=== PATIENT | male | born 1945 | race Caucasian/White ===

== ENCOUNTER 2017-04-02 11:46 | Inpatient (IN) ==
[2017-04-02 15:01] VITALS: BMI 24.2
[2017-04-02] MEDS ORDERED: ACETAMINOPHEN 650 MG SUPPOSITORY PR PRN (15:52)
[2017-04-02] MEDS ORDERED: WARFARIN 2 MG TABLET PO SCH (17:00)
[2017-04-02] MEDS: CEFTRIAXONE 2 GM in NS 100 ML IV SCH (18:22)
[2017-04-02] MEDS: MIDODRINE 10 MG TABLET PO SCH (18:23)
[2017-04-02] MEDS: SIMVASTATIN 20 MG TABLET PO SCH (21:10)
[2017-04-02] MEDS: BuPROPion IR 75 MG TABLET PO SCH (21:10)
[2017-04-02] MEDS: DOCUSATE SODIUM 100 MG CAPSULE PO SCH (21:10)
[2017-04-02] MEDS: CITALOPRAM 20 MG TABLET PO SCH (21:10)
[2017-04-02] MEDS: POLYETHYL GLYCOL 3350 17gm PACKET PO SCH (21:11)
[2017-04-03] MEDS ORDERED: FUROSEMIDE 20 MG TABLET PO SCH (09:00)
[2017-04-03] MEDS ORDERED: CEFTRIAXONE 2 GM INJECTION IV SCH (09:00)
[2017-04-03] MEDS: DOCUSATE SODIUM 100 MG CAPSULE PO SCH ×2 (09:02→22:25)
[2017-04-03] MEDS: GLYBURIDE 2.5 MG TABLET PO SCH (09:02)
[2017-04-03] MEDS: MIDODRINE 10 MG TABLET PO SCH ×3 (09:03→17:46)
[2017-04-03] MEDS: BuPROPion IR 75 MG TABLET PO SCH ×2 (09:03→22:24)
[2017-04-03] MEDS: NS 500 ML IV SCH ×2 (09:54→20:40)
--- NOTE | 2017-04-03 10:06 | Consult Note ---
<Polly Monroy V - Last Filed: 04/03/17 10:03> Consult Information - Data of Consult Patient: new to practice Consult date: 04/03/17 Requesting Physician: Gene Harrell MD Family Provider: Edith Castro MD-[facility] in [place] - Consult Narrative Reason for consult: medical management of recent sepsis, endocarditis History of present illness: Magdaleno is a pleasant 71 yr old male with a very complex recent medical history. He was admitted to [facility] on March 11, 2017 with shortness of breath and weakness. At that time he was found to have infectious endocarditis and septic shock caused by streptococcus bacteremia. An echocardiogram did reveal vegetation on the aortic and mitral valves, and he was diagnosed with a non-STEMI. On 03/14/17, patient underwent a aortic and mitral valve replacement under the care of Dr. Dami Mccoy. Post operatively he did have respiratory failure and was placed on the ventilator. This was managed by automotive service consultant, Dr. Nunes. Over the course of the next 2 weeks he has continued to improve. He has continued to have orthostasis and has been placed on Midodrine following a syncopal episode on 03/29. Both beta cassi and MANNY inhibitor have remained on hold. His other chronic disease have been managed and stabilized. Hemoglobin A1c while at [facility] was 6.5. His glipizide and metformin had been on hold, however, were resumed at time of discharge. Due to the severity of his illness and the extended time of his hospitalization , he developed significant general weakness. Prior to this illness. He does reside independently at home. Because of this debility, he was accepted to [facility] rehabilitation unit for ongoing rehabilitation and strengthening. He was followed by the following specialists while at [facility]- (03/11/17- 04/02/17) Dr. Cayetano Bautista (infectious disease) streptococcus bacteremia- continue on IV Rocephin through 05/10/17. Dr Robbin Marcus (mobile lounge driver ) regarding acute kidney injury on top of chronic kidney disease Dr Canelo Nunes (Heat Treat Technician) managed acute respiratory failure and ventilation [facility] Patient Stated Medical History Aortic/mitral valve endocarditis- 03/11/17 Paroxysmal atrial fibrillation with RVR during hospitalization Hx of Hypertension with current hypotension Diabetes CKD wtih recent IVIS History of kidney stones. GERD Depression. Pacemaker Surgical History: Pacemaker. 03/14/17- Bioprosthetic aortic valve replacement and mitral valve replacement Family History: Family history positive for cancer and melanoma - Social History Smoking status: Never smoker Substance use type: does not use Alcohol intake frequency: does not drink Current residence: Apartment/Private Home (independently in [place]) Social history: PCP Dr. Edith Castro at [facility], [place] Medications Home Medications Medication Instructions Recorded Confirmed Type Acetaminophen Supp [Tylenol Supp] 650 mg RECTALLY Q4HR PRN MDD 6 04/02/17 History supps/24 hours BuPROPion IR [Wellbutrin Ir] 75 mg PO BID 04/02/17 04/02/17 History Ceftriaxone [Rocephin] 2 gm IV DAILY 04/02/17 04/02/17 History Citalopram Hydrobromide [Celexa] 20 mg PO HS 04/02/17 04/02/17 History Docusate Sodium [Colace] 1 cap PO BID 04/02/17 04/02/17 History Furosemide [Lasix] 1 tab PO DAILY 04/02/17 04/02/17 History GlyBURIDE [Micronase] 2.5 mg PO DAILY 04/02/17 04/02/17 History Metformin Xr [Glucophage Xr] 1,000 mg PO BID 04/02/17 04/02/17 History Midodrine [Proamatine] 10 mg PO ,,04/02/17 04/02/17 History Polyethylene Glycol 3350 [Miralax] 17 gm PO HS 04/02/17 04/02/17 History Potassium Chloride ER Tab [K-Dur] 1 tab PO DAILY 04/02/17 04/02/17 History Simvastatin [Zocor] 20 mg PO HS 04/02/17 04/02/17 History Warfarin [Coumadin] 2 mg PO 1700 04/02/17 04/02/17 History Allergies Allergy/AdvReac Type Severity Reaction Status Date / Time No Known Allergies Allergy Verified 04/02/17 13:14 Exam Vital Signs: Temperature 97.6 F 04/02/17 23:49 Pulse Rate 99 04/02/17 23:49 Respiratory Rate 20 04/02/17 23:49 Blood Pressure 93/65 04/02/17 23:49 Pulse Oximetry 95 04/02/17 23:49 Oxygen Delivery Method Room Air Height/Weight/BMI: Height 1.83 m Weight 81 kg Body Mass Index 24.2 Results - Labs CBC & Chem 7: 04/03/17 04:29 04/03/17 04:29 Assessment and Plan (1) General weakness Current visit: Yes Status: Acute (2) Debility Current visit: Yes Status: Acute DVT Prophylaxis: Coumadin Resuscitation Status: Full Code Assessment and Plan: 04/03/17-initial consult Impression General weakness and debility secondary to severe illness. Status post aortic/mitral endocarditis with septic shock Status post aortic and mitral valve replacement Orthostatic hypotension Diabetes Previous hypertension Atrial fibrillation Chronic anticoagulation Pacemaker GERD Anxiety Plan Given orthostasis beta csasi and MANNY inhibitor have been on hold. Continue on Midodrine 10 mg TID. This morning will given him a 500ml bolus of NS given significant orthostasis 62 systolic while sitting on the edge of the bed. Upon recheck by myself blood pressure was 91 systolic. Discussed with nursing staff will have to do position changes slowly with patient. He does become significantly symptomatic, complaining of lightheadedness 1. Blood pressure does decrease. Given recent aortic and mitral valve endocarditis he will require 8 weeks total of antibiotic therapy. It is recommended that he continue on IV Rocephin daily through 05/10/17. Will require chronic anticoagulation on warfarin, INR ordered for now. Will place pharmacy consult for Coumadin managing. [id number] score is >3 , indicating he has a high risk for CVA Will monitor blood sugars routinely. Patient was placed back on metformin and glyburide at time of discharge from [facility]. Will need to monitor renal function carefully given recent acute kidney injury. Asked nursing staff to do Guzmán, bladder retraining. Hopeful to discontinue Guzmán catheter in the next 1-2 days. Check daily CBC and BMP to follow blood counts, renal function and electrolytes. Encourage work with PT and OT for ongoing strengthening. It is patient's goal to return independently at home Will discuss further orders and plan of care with attending, Dr. Leach. At time of discharge medical care is returned to Dr. Edith Castro at [facility]. Hospital Course Summary Disclaimer: The visit summary below is not to be considered part of the above Progress Note. Hospital Course: 04/03/17-initial consult Impression General weakness and debility secondary to severe illness. 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 Continue on Midodrine 10 mg TID. This morning will given him a 500ml bolus of NS given significant orthostasis 62 systolic while sitting on the edge of the bed. Upon recheck by myself blood pressure was 91 systolic. Discussed with nursing staff will have to do position changes slowly with patient. He does become significantly symptomatic, complaining of lightheadedness 1. Blood pressure does decrease. Given recent aortic and mitral valve endocarditis he will require 8 weeks total of antibiotic therapy. It is recommended that he continue on IV Rocephin daily through 05/10/17. Will require chronic anticoagulation on warfarin, INR ordered for now. Will place pharmacy consult for Coumadin managing. [id number] score is >3 , indicating he has a high risk for CVA Will monitor blood sugars routinely. Patient was placed back on metformin and glyburide at time of discharge from [facility]. Will need to monitor renal function carefully given recent acute kidney injury. Asked nursing staff to do Guzmán, bladder retraining. Hopeful to discontinue Guzmán catheter in the next 1-2 days. Check daily CBC and BMP to follow blood counts, renal function and electrolytes. Encourage work with PT and OT for ongoing strengthening. It is patient's goal to return independently at home Will discuss further orders and plan of care with attending, Dr. Leach. At time of discharge medical care is returned to Dr. Edith Castro at [facility]. Sepsis Assessment - Evaluation Sepsis screening result: No Definite Risk <Ana Leach - Last Filed: 04/03/17 20:29> Consult Information - Data of Consult Requesting Physician: Gene Harrell MD Primary Care Provider: Norah Pedroza MD Family Provider: Norah Pedroza MD [facility] Patient Stated Medical History Exam Vital Signs: Temperature 97.5 F 04/03/17 16:00 Pulse Rate 92 04/03/17 16:00 Respiratory Rate 20 04/03/17 16:00 Blood Pressure 89/67 04/03/17 16:00 Pulse Oximetry 95 04/03/17 16:00 Oxygen Delivery Method Room Air Height/Weight/BMI: Height 1.83 m Weight 81 kg Body Mass Index 24.2 Results - Labs CBC & Chem 7: 04/03/17 04:29 04/03/17 04:29 Assessment and Plan (1) General weakness Current visit: Yes Status: Acute (2) Debility Current visit: Yes Status: Acute Assessment and Plan: I have independently evaluated and examined this patient. I reviewed the chart, the patient's history, and the TUNNEL ELASTIC OPERATOR LOCKSTITCH/PA's documented findings as above. We discussed and formulated the assessment and plan as above with additions as below: Mr. Blackman was seen in the dining area with family members in attendance. Patient described excessive fatigue after working with therapy earlier today. He indicates being overwhelmed with recent events and his recovery needs. He denied dyspnea and reports his bowels have been working well. He expressed concern about passing out. He denies lower extremity edema and daughter confirmed that extremities have not been edematous recently. She reported that Lasix was added to his regimen yesterday because he had some fluid around his lungs but he's had no respiratory difficulty. Oxygen saturation 95% on room air, systolic blood pressure persistently under 100 today, most recent blood pressure 89/67 Generalized pallor, appears exhausted, soft spoken Conjunctiva clear, sclera anicteric; PICC right upper extremity-insertion site unremarkable Respirations nonlabored with diminished airflow throughout-breath sounds are clear Regular rhythm, S1-S2, low-grade tachycardia; no clicks appreciated Abdomen soft/nontender Lower extremities without edema, KISHORE hose on Moving extremities spontaneously, sensation intact, no tremor noted, motor tone normal Management of pleural fluid/congestive heart failure (daughter suggests ejection fraction of about 30% on last echo) in conjunction with orthostatic hypotension will be problematic. Given the absence of respiratory compromise and near syncope earlier today Lasix will be discontinued. I'll try to contact the patient's casting machine operator helper tomorrow to discuss further management plans. Baseline chest x-ray to be obtained in the morning. Hospital Course Summary Disclaimer: The visit summary below is not to be considered part of the above Progress Note.
--- NOTE | 2017-04-03 10:49 | IRU History & Physical Report ---
[facility] IRU Date: Chief complaint: PO Valvular replacement with weakness HPI: Mr. Blackman is a 71-year-old male has been admitted to the rehabilitation unit post valvular surgery in [place]. Both the aortic and mitral valves were replaced for infectious endocarditis and septic shock. Postoperatively, the patient had respiratory failure, was placed on a ventilator and managed by the inspector fabric. The next couple of weeks. He improved medically, but has had difficulty with orthostatic hypotension and generalized weakness. The r. Please refer jcarlos he's been admitted to our rehabilitation unit to increase his physical capability for going home. Please refer to Polly [facility] note which lists the specialists that have taken care of Mr. Blackman. He is to get IV Rocephin through 05/10/2017. Review of Systems Comprehensive ROS: completed and no additional positive findings except those as stated - Constitutional Constitutional: Present: as per HPI. Absent: fever(s) - Cardiovascular Cardiovascular: Present: as per HPI - Gastrointestinal Gastrointestinal: Absent: nausea - Genitourinary Genitourinary: Present: other - Musculoskeletal Musculoskeletal: Present: muscle weakness - Neurological Neurological: Present: weakness - Psychiatric Psychiatric: Absent: anxiety PFSH Patient Stated Medical History Syncope Yes Angina Yes Cardiac Arrhythmia Yes Hypertension Yes Hypotension Yes Myocardial Infarction Yes Diabetes Mellitus Type 2 Yes Gastroesophageal Reflux Yes Disease Hx Benign Prostatic Yes Hyperplasia Hx Incontinence No Other Yes: kidney infection hx of Sepsis Yes Depression Yes Surgical History: Pacemaker. 03/14/17- Bioprosthetic aortic valve replacement and mitral valve replacement - Social History Smoking status: Never smoker Current residence: Apartment/Private Home (independently in [place]) Medications Home Medications Medication Instructions Recorded Confirmed Type Acetaminophen Supp [Tylenol Supp] 650 mg RECTALLY Q4HR PRN MDD 6 04/02/17 History supps/24 hours BuPROPion IR [Wellbutrin Ir] 75 mg PO BID 04/02/17 04/02/17 History Ceftriaxone [Rocephin] 2 gm IV DAILY 04/02/17 04/02/17 History Citalopram Hydrobromide [Celexa] 20 mg PO HS 04/02/17 04/02/17 History Docusate Sodium [Colace] 1 cap PO BID 04/02/17 04/02/17 History Furosemide [Lasix] 1 tab PO DAILY 04/02/17 04/02/17 History GlyBURIDE [Micronase] 2.5 mg PO DAILY 04/02/17 04/02/17 History Metformin Xr [Glucophage Xr] 1,000 mg PO BID 04/02/17 04/02/17 History Midodrine [Proamatine] 10 mg PO ,,04/02/17 04/02/17 History Polyethylene Glycol 3350 [Miralax] 17 gm PO HS 04/02/17 04/02/17 History Potassium Chloride ER Tab [K-Dur] 1 tab PO DAILY 04/02/17 04/02/17 History Simvastatin [Zocor] 20 mg PO HS 04/02/17 04/02/17 History Warfarin [Coumadin] 2 mg PO 1700 04/02/17 04/02/17 History Allergies Allergy/AdvReac Type Severity Reaction Status Date / Time No Known Allergies Allergy Verified 04/02/17 13:14 Exam Vital Signs: Temperature 97.6 F 04/02/17 23:49 Pulse Rate 99 04/02/17 23:49 Respiratory Rate 20 04/02/17 23:49 Blood Pressure 93/65 04/02/17 23:49 Pulse Oximetry 95 04/02/17 23:49 Oxygen Delivery Method Room Air Height/Weight/BMI: Height 1.83 m Weight 81 kg Body Mass Index 24.2 - Constitutional Present: no acute distress - Routine HEENT Exam Head: Present: normocephalic - Routine Respiratory Exam Absent: respiratory distress - Routine Cardiovascular Exam Comments: sternal incision - Routine Abdominal Exam Present: non distended - Routine Extremities Exam Present: non tender. Absent: cyanosis - Routine Skin Exam Present: intact - Routine Neurological Exam Present: alert - Routine Psychiatric Exam Present: normal affect Sepsis Assessment - Evaluation Sepsis screening result: No Definite Risk IRU A/P DVT Prophylaxis: KISHORE Hose, Coumadin Resuscitation Status: Full Code - Course Hospital Course: Gene Harrell MD: - Interventions to Obtain Goals PT Treatment Plan: Balance/Proprioception, Functional Activities, Gait Training OT Treatment Plan: ADL (Basic Care), Balance Training, IADL, Pt./Family Education, Ther. Exercise for ADL Goals Progress/Modifications: return home
--- NOTE | 2017-04-03 11:00 | IRU 24Hr Post Admit Eval ---
24 Hr Post Admission Physical - Relevant Changes Relevant Changes: No Reviewed: I have reviewed the patient's information and concur with the finding and results of the pre-admission screen. Certification: I certify the patient for rehabilitation. - Patient Condition (1) General weakness Onset Date: ~03/11/17 Status: Acute Code(s): R53.1 - Weakness (2) Debility Onset Date: ~03/11/17 Status: Acute Code(s): R53.81 - Other malaise - Prior Functional Status Lives With: Spouse Residence Type: Apartment/Private Home Assitive Devices: None Prior Functional Status: Indep. at home or school - Current Functional Status Failed Alternative Therapy: Arrived from Acute Care Patient Requirements: The patient requires oversight by rehabilitation physician to manage their rehabilitation treatment plan and multidisciplinary approach to care that can only be provided in an IRF and requires a multidisciplinary approach to care, provided by professional PTs, OTs, STs, dieticians, RTs, rehabilitation nurses and is not available in lesser levels of care. Limitiations Req: Mobility Impairment, ADL Impairment, Limited Mobility Physical Therapy Minutes: 90 Occupational Therapy Minutes: 90 Therapy: The patient is to receive therapy at least 5 days a week. - Complications/Comorbidities Impact on Functional Outcomes: urinary function,pain, continued hypotension Barriers to Discharge: Weakness, Balance, Endurance - Plan to Avoid Complications Plan to Avoid Complications: The patient cannot receive this care in a lesser intensive setting such as Custodial or Outpatient Therapy due to the patient requiring the following .
[2017-04-03] MEDS ORDERED: WARFARIN 7.5 MG TABLET PO SCH (12:00)
--- NOTE | 2017-04-03 12:58 | Pharmacy Consult ---
Pharmacy Consult-Warfarin - Laboratory Information 04/03/17 04:30 INR 1.53 H 71yo M comes to [facility], post cardiac valve replacements, secondary to infectious endocarditis. Post op placed on ventilator. Has been couple weeks hospitalization. Now has physical weakness and is admitted for strengthening. Cardiac Valves: - 23mm Magna Ease Pericardial AORTIC Tissue Valve - 27mm Magna Pericardial MITRAL Mechanical Valve On admission to [facility] - INR = 1.53 Has been on Warfarin 2mg po daily. - [id number] score > 3 = high risk for ischemic stroke Given Mechanical Mitral valve, INR target range = 2.5 - 3.5 Pt has not had bridge anticoagulation. Will start Enoxaparin 40mg SQ daily, starting today, until therapeutic INR is reached. Give one dose of Warfarin 7.5mg today, to boost INR. Will follow daily until therapeutic. Thank you
[2017-04-03] MEDS: ENOXAPARIN 40 MG/0.4 ML INJECTION SQ SCH (16:53)
[2017-04-03] MEDS: CEFTRIAXONE 2 GM in NS 100 ML IV SCH (16:54)
[2017-04-03] MEDS: SIMVASTATIN 20 MG TABLET PO SCH (22:24)
[2017-04-03] MEDS: CITALOPRAM 20 MG TABLET PO SCH (22:24)
[2017-04-03] MEDS: POLYETHYL GLYCOL 3350 17gm PACKET PO SCH (22:25)
[2017-04-03] MEDS: SALINE FLUSH 10ml SYRINGE IV PRN (22:29)
--- NOTE | 2017-04-04 07:41 | IRU Plan of Care ---
[facility] Overall Plan of Care - Date Date: 04/05/17 - Patient Impairments (1) General weakness Code(s): R53.1 - Weakness Status: Acute (2) Debility Code(s): R53.81 - Other malaise Status: Acute - Relevant Changes Relevant Changes: No Reviewed: I have reviewed the patient's information and concur with the finding and results of the pre-admission screen. Certification: I certify the patient for rehabilitation. - Medical Prognosis Medical Prognosis: Fair Vital Signs: Last Vital Signs Temp 99.1 F 04/03/17 20:54 Pulse 88 04/03/17 20:54 Resp 12 04/03/17 20:54 BP 83/66 04/03/17 20:54 Pulse Ox 97 04/03/17 20:54 - Anticipated Interventions Anticipated Interventions: The patient requires inpatient IRF care for PT, OT, and/or ST for residuals remaining from [] resulting in muscular weakness and strength deficits. - FIM Ambulation Distance: 140 Walk: 2 Maximum Assistance Stairs: 0 Activity Does Not Occur Wheelchair: 0 Activity Does Not Occur Eatin Supervision/Setup Groomin Minimal Assistance Bathing Ability: 0 Activity Does Not Occur Dressing-Upper: 4 Minimal Assistance Bed Transfers: 2 Maximum Assistance Toileting Adaptive Equipment: Grab Bars - Current Functional Status Patient Requires: The patient requires oversight by rehabilitation physician to manage their rehabilitation treatment plan and multidisciplinary approach to care that can only be provided in an IRF and requires a multidisciplinary approach to care, provided by professional PTs, OTs, STs, dieticians, RTs, rehabilitation nurses and is not available in lesser levels of care. Physical Therapy Minutes: 90 Occupational Therapy Minutes: 90 Therapy: The patient is to receive therapy at least 5 days a week. - Anticipated LOS/Outcomes Anticipated Functional Outcome: independent Anticipated Length of Stay: 14 Anticipated DC Destination: Home, Self Residential Safety Plan: The patient will be provided with the development of a Home Safety Plan for return to a home or home-like environment and and to ensure safety post discharge. - Plan to Avoid Complications Plan to Avoid Complications: The patient cannot receive this care in a lesser intensive setting such as Correction or Outpatient Therapy due to the patient requiring the following .
--- NOTE | 2017-04-04 07:45 | Pharmacy Consult ---
Pharmacy Consult-Warfarin - Laboratory Information 04/03/17 04/04/17 04:30 04:38 INR 1.53 H 2.83 H - Consult Information Will give no warfarin today. Will leave enoxaparin active today and continue to monitor. Thank you.
--- NOTE | 2017-04-04 08:32 | IRU Plan of Care ---
IRU Overall Plan of Care - Patient Impairments (1) General weakness Code(s): R53.1 - Weakness Status: Acute (2) Debility Code(s): R53.81 - Other malaise Status: Acute - Relevant Changes Reviewed: I have reviewed the patient's information and concur with the finding and results of the pre-admission screen. Certification: I certify the patient for rehabilitation. - Medical Prognosis Vital Signs: Last Vital Signs Temp 98.3 F 04/04/17 07:55 Pulse 78 04/04/17 07:55 Resp 20 04/04/17 07:55 BP 92/67 04/04/17 07:55 Pulse Ox 97 04/04/17 07:55 - Anticipated Interventions Anticipated Interventions: The patient requires inpatient IRF care for PT, OT, and/or ST for residuals remaining from [] resulting in muscular weakness and strength deficits. - FIM Ambulation Distance: 140 Toileting Adaptive Equipment: Grab Bars - Current Functional Status Patient Requires: The patient requires oversight by rehabilitation physician to manage their rehabilitation treatment plan and multidisciplinary approach to care that can only be provided in an IRF and requires a multidisciplinary approach to care, provided by professional PTs, OTs, STs, dieticians, RTs, rehabilitation nurses and is not available in lesser levels of care. Physical Therapy Minutes: 90 Occupational Therapy Minutes: 90 Therapy: The patient is to receive therapy at least 5 days a week. - Anticipated LOS/Outcomes Home Safety Plan: The patient will be provided with the development of a Home Safety Plan for return to a home or home-like environment and and to ensure safety post discharge. - Plan to Avoid Complications Plan to Avoid Complications: The patient cannot receive this care in a lesser intensive setting such as Retirement or Outpatient Therapy due to the patient requiring the following .
--- NOTE | 2017-04-04 08:34 | IRU Progress Note ---
- Subjective/Serverity of Illness Patient feels more fatigued today. Had a good workout with physical therapy yesterday. Did not sleep well. 7. Trouble with the urinary catheter not functioning properly. Is been removed. A couple of times and he is retaining urine. We'll plan to get a urology consult. Exam Vital Signs: Temperature 98.3 F 04/04/17 07:55 Pulse Rate 78 04/04/17 07:55 Respiratory Rate 20 04/04/17 07:55 Blood Pressure 92/67 04/04/17 07:55 Pulse Oximetry 97 04/04/17 07:55 Oxygen Delivery Method Room Air Height/Weight/BMI: Height 1.83 m Weight 81 kg Body Mass Index 24.2 Sepsis Assessment - Evaluation Sepsis screening result: No Definite Risk IRU A/P (1) General weakness Current visit: Yes Status: Acute (2) Debility Current visit: Yes Status: Acute DVT Prophylaxis: KISHORE Hose, Coumadin Resuscitation Status: Full Code - Course Hospital Course: Gene Harrell MD: - Interventions to Obtain Goals PT Treatment Plan: Balance/Proprioception, Functional Activities, Gait Training , Patient/Family Education, Therapeutic Exercise OT Treatment Plan: ADL (Basic Care), Balance Training, IADL, Pt./Family Education, Ther. Exercise for ADL
[2017-04-04] MEDS: GLYBURIDE 2.5 MG TABLET PO SCH (08:42)
[2017-04-04] MEDS: MIDODRINE 10 MG TABLET PO SCH ×3 (08:42→20:17)
[2017-04-04] MEDS: DOCUSATE SODIUM 100 MG CAPSULE PO SCH ×2 (08:43→20:18)
[2017-04-04] MEDS: ENOXAPARIN 40 MG/0.4 ML INJECTION SQ SCH (08:43)
[2017-04-04] MEDS: BuPROPion IR 75 MG TABLET PO SCH ×2 (08:43→20:17)
--- NOTE | 2017-04-04 11:24 | Progress Note ---
<Polly Monroy V - Last Filed: 04/04/17 11:20> Subjective: Magdaleno is seen this morning following a call from nursing staff reporting episode of orthostasis. Patient was up in the chair eating breakfast, and he began to feel lightheaded. Blood pressure was checked and found to be 61/44, pulse 97. Patient was taken back to his room and placed in bed. Recheck blood pressure 91/ 68. This is very similar to the incident orthostasis that he had yesterday. He also was noted to be hypoglycemic. Fasting sugar this morning was 65, however, last night he was down to 44. He complains of generally feeling fatigued. He overall states that he is frustrated that every time he sits up and angles he becomes symptomatic and orthostatic. Denies feeling pain or shortness of breath. Fully catheter remains intact. He it was noted overnight that the Pettit was not draining and bladder scan revealed 300 ML. Pettit tubing repositioned and patient had immediate 300 ML output. Objective Vital signs: Temperature 98.3 F 04/04/17 07:55 Pulse Rate 93 04/04/17 09:26 Respiratory Rate 20 04/04/17 07:55 Blood Pressure 91/68 04/04/17 09:26 Pulse Oximetry 97 04/04/17 07:55 Oxygen Delivery Method Room Air Height/Weight/BMI: Height 1.83 m Weight 81 kg Body Mass Index 24.2 - Constitutional Present: no acute distress, well nourished, well developed - Routine HEENT Exam Eye: Present: EOMI ENT: Present: mucous membranes moist, dentition normal - Routine Respiratory Exam Present: CTA bilaterally. Absent: wheezes - Routine Cardiovascular Exam Present: RRR, S1, S2. Absent: murmur - Routine Abdominal Exam Present: soft, normoactive bowel sounds, non distended. Absent: tenderness - Routine Extremities Exam Present: pulses intact, normal capillary refill - Routine Back/Spine/Pelvis Exam Back/Spine: Present: full ROM - Routine Skin Exam Present: intact, dry, warm - Routine Neurological Exam Present: alert, oriented X3, moving all extremities, vision grossly intact, hearing grossly intact CN 3-12 intact - Routine Lymphatic Exam Lymphatic: Absent: adenopathy - Routine Psychiatric Exam Present: normal affect Results - Labs CBC & Chem 7: 04/04/17 04:38 04/04/17 04:38 Assessment and Plan (1) General weakness Current visit: Yes Status: Acute (2) Debility Current visit: Yes Status: Acute Assessment and Plan: Impression General weakness and debility secondary to severe illness. 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 Will continue with only metformin. May need to consider decreasing the dose to 500 twice a day if persistent hypoglycemia. Regarding orthostatic hypotension. We will change the timing of the dosing of midodrine to 7 a.m., 11 a.m., 3 p.m. Will plan to call brand planner that followed patient while at [place], Dr. Tyler Goodman (With [facility] cardiology) Lasix remains on hold Dr Palomo (urologist) was consulted given retention with pettit overnight. He recommended started Flomax, However will not initiate this until orthostasis is better controlled. At this point will leave pettit cath in place. He is planning to see patient Friday in consultation Continue to follow routine labs. INR therapeutic 2.83. Lovenox subcutaneous daily for DVT prophylaxis Orders and plan of care discussed with attending, Dr. Leach Sepsis Assessment - Evaluation Sepsis screening result: No Definite Risk Hospital Course Summary Disclaimer: The visit summary below is not to be considered part of the above Progress Note. Hospital Course: 04/03/17-initial consult Impression General weakness and debility secondary to severe illness. 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 Continue on Midodrine 10 mg TID. This morning will given him a 500ml bolus of NS given significant orthostasis 62 systolic while sitting on the edge of the bed. Upon recheck by myself blood pressure was 91 systolic. Discussed with nursing staff will have to do position changes slowly with patient. He does become significantly symptomatic, complaining of lightheadedness 1. Blood pressure does decrease. Given recent aortic and mitral valve endocarditis he will require 8 weeks total of antibiotic therapy. It is recommended that he continue on IV Rocephin daily through 05/10/17. Will require chronic anticoagulation on warfarin, INR ordered for now. Will place pharmacy consult for Coumadin managing. [id number] score is >3 , indicating he has a high risk for CVA Will monitor blood sugars routinely. Patient was placed back on metformin and glyburide at time of discharge from [place]. Will need to monitor renal function carefully given recent acute kidney injury. Asked nursing staff to do Pettit, bladder retraining. Hopeful to discontinue Pettit catheter in the next 1-2 days. Check daily CBC and BMP to follow blood counts, renal function and electrolytes. Encourage work with PT and OT for ongoing strengthening. It is patient's goal to return independently at home Will discuss further orders and plan of care with attending, Dr. Leach. At time of discharge medical care is returned to Dr. Edith Castro at [facility]. Plan- 04/04/17 In light on episodes of hypoglycemia, Will place glyburide on hold. Will continue with only metformin. May need to consider decreasing the dose to 500 twice a day if persistent hypoglycemia. Regarding orthostatic hypotension. We will change the timing of the dosing of midodrine to 7 a.m., 11 a.m., 3 p.m. Will plan to call brand planner that followed patient while at [place], Dr. Tyler Goodman (With [facility] cardiology) Lasix remains on hold Dr Palomo (urologist) was consulted given retention with pettit overnight. He recommended started Flomax, However will not initiate this until orthostasis is better controlled. At this point will leave pettit cath in place. He is planning to see patient Friday in consultation Continue to follow routine labs. INR therapeutic 2.83. Lovenox subcutaneous daily for DVT prophylaxis Orders and plan of care discussed with attending, Dr. Leach <Ana Leach - Last Filed: 04/04/17 20:19> Objective Vital signs: Temperature 97.2 F 04/04/17 15:14 Pulse Rate 88 04/04/17 15:14 Respiratory Rate 16 04/04/17 15:14 Blood Pressure 102/72 04/04/17 15:14 Pulse Oximetry 96 04/04/17 15:14 Oxygen Delivery Method Room Air Height/Weight/BMI: Height 1.83 m Weight 81 kg Body Mass Index 24.2 Results - Labs CBC & Chem 7: 04/04/17 04:38 04/04/17 04:38 Assessment and Plan (1) General weakness Current visit: Yes Status: Acute (2) Debility Current visit: Yes Status: Acute Assessment and Plan: I have independently evaluated and examined this patient. I reviewed the chart, the patient's history, and the ACCOUNTING ASSISTANT/PA's documented findings as above. We discussed and formulated the assessment and plan as above with additions as below: Mr. Blackman had an additional episode of hypotension this morning prior to administration of Midodrine. Timing of dosing was changed so he receives medication at 7 AM and before his up to breakfast. He denied dyspnea or chest pain. On examination patient was resting comfortably and was more interactive than when seen yesterday. Respirations are nonlabored with good airflow, breath sounds are clear anteriorly Cardiac rhythm is regular No lower extremity edema is present Chest x-ray reviewed by myself demonstrating small/moderate bilateral pleural effusions, normal heart size, no increased vascular markings. Surgical findings of sternotomy, dual-chamber pacemaker, and AVR/MVR present Patient's managing brand planner (Dr. Goodman) was contacted to discuss management of orthostatic hypotension and heart failure. He reported that the patient's ejection fraction was 35% and that Lasix was initiated to avoid volume overload. He was comfortable discontinuing Lasix provided fluid volume is monitored closely. Hemoglobin/electrolytes stable but INR has bumped to 2.83 and warfarin on hold today. Hospital Course Summary Disclaimer: The visit summary below is not to be considered part of the above Progress Note.
--- NOTE | 2017-04-04 11:55 | XRay Report ---
INDICATION: CHF PROCEDURE: CHEST 2-VIEWS UPRIGHT (PA & LAT) Encounter: Initial COMPARISON: None FINDINGS: Right PICC line in place with the tip projecting over the expected cavoatrial junction. Prior sternotomy with cardiac valve replacements. Left pacemaker. Small bilateral pleural effusions with associated lower lobe airspace consolidation. No pneumothorax. Cardiac silhouette is at the upper limits of normal in size. Mediastinal contours are normal. Pulmonary vascularity is not overly congested. Impression: Lower lobe airspace disease could be due to compressive atelectasis from the small effusions or superimposed pneumonia. .
[2017-04-04] MEDS: CEFTRIAXONE 2 GM in NS 100 ML IV SCH (17:10)
[2017-04-04] MEDS ORDERED: GLUCOSE ORAL GEL 40% 37.5gm PO PRN (17:33)
[2017-04-04] MEDS: SIMVASTATIN 20 MG TABLET PO SCH (20:18)
[2017-04-04] MEDS: CITALOPRAM 20 MG TABLET PO SCH (20:18)
[2017-04-04] MEDS: POLYETHYL GLYCOL 3350 17gm PACKET PO SCH (20:18)
[2017-04-05] MEDS: MIDODRINE 10 MG TABLET PO SCH ×3 (09:27→22:02)
[2017-04-05] MEDS: BuPROPion IR 75 MG TABLET PO SCH ×2 (09:27→22:01)
[2017-04-05] MEDS: ENOXAPARIN 40 MG/0.4 ML INJECTION SQ SCH (09:28)
[2017-04-05] MEDS: DOCUSATE SODIUM 100 MG CAPSULE PO SCH ×2 (09:28→22:02)
--- NOTE | 2017-04-05 10:48 | Pharmacy Consult ---
Pharmacy Consult-Warfarin - Laboratory Information 04/03/17 04/04/17 04/05/17 04:30 04:38 09:36 INR 1.53 H 2.83 H 3.04 H - Consult Information 71 y.o. Male on Warfarin protocol for Mechanical mitral valve. goal INR range= 2.5 to 3.5 Will give Warfarin 2 mg po x 1 dose. will DC Lovenox tomorrow if INR remains in therapeutic range. Pharmacy will monitor and adjust as needed. Thank you for the Warfarin dosing protocol, Arminda Griggs RPh date INR dose 04/02 -- 2 mg 04/03 1.53 7.5 mg 04/04 2.83 no dose given 04/05 3.04 plan: 2 mg
[2017-04-05] MEDS ORDERED: FALL RISK - PHARMACY CONSULT MC PRN (11:43)
[2017-04-05] MEDS ORDERED: WARFARIN 2 MG TABLET PO SCH (12:00)
[2017-04-05] MEDS: CEFTRIAXONE 2 GM in NS 100 ML IV SCH (15:20)
[2017-04-05] MEDS: POLYETHYL GLYCOL 3350 17gm PACKET PO SCH (22:02)
[2017-04-05] MEDS: SIMVASTATIN 20 MG TABLET PO SCH (22:02)
[2017-04-05] MEDS: CITALOPRAM 20 MG TABLET PO SCH (22:02)
[2017-04-06] MEDS: MIDODRINE 10 MG TABLET PO SCH ×3 (08:21→22:19)
[2017-04-06] MEDS: BuPROPion IR 75 MG TABLET PO SCH ×2 (08:21→22:19)
[2017-04-06] MEDS: DOCUSATE SODIUM 100 MG CAPSULE PO SCH ×2 (08:21→22:19)
[2017-04-06] MEDS: ENOXAPARIN 40 MG/0.4 ML INJECTION SQ SCH (08:21)
--- NOTE | 2017-04-06 10:25 | Pharmacy Consult ---
Pharmacy Consult-Warfarin - Laboratory Information 04/03/17 04/04/17 04/05/17 04:30 04:38 09:36 INR 1.53 H 2.83 H 3.04 H 04/06/17 09:34 INR 2.56 H - Consult Information 71 y.o. Male on Warfarin protocol for Mechanical mitral valve. goal INR range= 2.5 to 3.5 Will give Warfarin 4 mg po x 1 dose. will DC Lovenox. Pharmacy will monitor and adjust as needed. Thank you for the Warfarin dosing protocol, Arminda Griggs RPh date INR dose 04/02 -- 2 mg 04/03 1.53 7.5 mg 04/04 2.83 no dose given 04/05 3.04 2 mg 04/06 2.56 plan: 4 mg
[2017-04-06] MEDS ORDERED: WARFARIN 4 MG TABLET PO SCH (12:00)
[2017-04-06] MEDS: CEFTRIAXONE 2 GM in NS 100 ML IV SCH (15:53)
--- NOTE | 2017-04-06 16:10 | Progress Note ---
Subjective: Patient is seen lying in bed this afternoon. He reports he is doing well. He has no complaints. No chest pain shortness of breath. He states that he has had minimal dizziness/lightheadedness with getting up today. This is much improved from yesterday. He is eating well. His bowels are moving. He continues with the Pettit catheter. This has been present since his hospitalization in [place]. Objective Vital signs: Temperature 97.9 F 04/06/17 07:23 Pulse Rate 88 04/06/17 07:23 Respiratory Rate 18 04/06/17 07:23 Blood Pressure 90/68 04/06/17 07:23 Pulse Oximetry 97 04/06/17 07:23 Oxygen Delivery Method Room Air Height/Weight/BMI: Height 1.83 m Weight 81 kg Body Mass Index 24.2 - Constitutional Present: no acute distress, well nourished, well developed - Routine HEENT Exam Head: Present: normocephalic, atraumatic ENT: Present: mucous membranes moist Comments: Clear rhinorrhea left nostril - Routine Respiratory Exam Present: CTA bilaterally. Absent: wheezes - Routine Cardiovascular Exam Present: RRR, S1, S2. Absent: murmur - Routine Abdominal Exam Present: soft, normoactive bowel sounds, non distended. Absent: tenderness - Routine Extremities Exam Present: no edema, normal capillary refill - Routine Skin Exam Present: dry, warm - Routine Neurological Exam Present: alert, oriented X3 - Routine Lymphatic Exam Lymphatic: Absent: adenopathy - Routine Psychiatric Exam Present: normal affect, normal thought process Results - Labs CBC & Chem 7: 04/04/17 04:38 04/04/17 04:38 Assessment and Plan (1) General weakness Current visit: Yes Status: Acute (2) Debility Current visit: Yes Status: Acute Assessment and Plan: Impression General weakness and debility secondary to severe illness. Status post aortic/mitral endocarditis with septic shock Status post aortic and mitral valve replacement Orthostatic hypotension Diabetes Previous hypertension Atrial fibrillation Chronic anticoagulation Pacemaker GERD Anxiety Plan His blood sugars are trending up and he is eating better. Will resume his metformin 500 mg twice a day at this point (his home dose is 1000 mg twice a day ). Glyburide still on hold. His orthostasis is much better. Patient continues on midodrine. Lasix is still on hold. He is still on potassium supplement and his potassium has been running 4.2. Will hold potassium at this point as well. Patient previously had some retention with his Pettit. It had been suggested that he should start Flomax and Dr. Isabel was going to consult patient. Flomax had not been started at that time due to his orthostasis. He has not had any problems the past few days. At this point, will cancel the consult for Dr. Isabel and start bladder training. Sepsis Assessment - Evaluation Sepsis screening result: No Definite Risk Hospital Course Summary Disclaimer: The visit summary below is not to be considered part of the above Progress Note. Hospital Course: 04/03/17-initial consult Impression General weakness and debility secondary to severe illness. 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 Continue on Midodrine 10 mg TID. This morning will given him a 500ml bolus of NS given significant orthostasis 62 systolic while sitting on the edge of the bed. Upon recheck by myself blood pressure was 91 systolic. Discussed with nursing staff will have to do position changes slowly with patient. He does become significantly symptomatic, complaining of lightheadedness 1. Blood pressure does decrease. Given recent aortic and mitral valve endocarditis he will require 8 weeks total of antibiotic therapy. It is recommended that he continue on IV Rocephin daily through 05/10/17. Will require chronic anticoagulation on warfarin, INR ordered for now. Will place pharmacy consult for Coumadin managing. [id number] score is >3 , indicating he has a high risk for CVA Will monitor blood sugars routinely. Patient was placed back on metformin and glyburide at time of discharge from [place]. Will need to monitor renal function carefully given recent acute kidney injury. Asked nursing staff to do Pettit, bladder retraining. Hopeful to discontinue Pettit catheter in the next 1-2 days. Check daily CBC and BMP to follow blood counts, renal function and electrolytes. Encourage work with PT and OT for ongoing strengthening. It is patient's goal to return independently at home Will discuss further orders and plan of care with attending, Dr. Leach. At time of discharge medical care is returned to Dr. Edith Castro at [facility]. 04/04/17 In light on episodes of hypoglycemia, Will place glyburide on hold. Will continue with only metformin. May need to consider decreasing the dose to 500 twice a day if persistent hypoglycemia. Regarding orthostatic hypotension. We will change the timing of the dosing of midodrine to 7 a.m., 11 a.m., 3 p.m. Will plan to call [employer] police officer that followed patient while at [place], Dr. Tyler Goodman (With [facility] cardiology) Lasix remains on hold Dr Palomo (urologist) was consulted given retention with pettit overnight. He recommended started Flomax, However will not initiate this until orthostasis is better controlled. At this point will leave pettit cath in place. He is planning to see patient Friday in consultation Continue to follow routine labs. INR therapeutic 2.83. Lovenox subcutaneous daily for DVT prophylaxis Orders and plan of care discussed with attending, Dr. Leach 04/06/17 His blood sugars are trending up and he is eating better. Will resume his metformin 500 mg twice a day at this point (his home dose is 1000 mg twice a day ). Glyburide still on hold. His orthostasis is much better. Patient continues on midodrine. Lasix is still on hold. He is still on potassium supplement and his potassium has been running 4.2. Will hold potassium at this point as well. Patient previously had some retention with his Pettit. It had been suggested that he should start Flomax and Dr. Isabel was going to consult patient. Flomax had not been started at that time due to his orthostasis. He has not had any problems the past few days. At this point, will cancel the consult for Dr. Isabel and start bladder training
[2017-04-06] MEDS: METFORMIN 500 MG TABLET PO SCH ×3 (18:23→18:29)
[2017-04-06] MEDS: CITALOPRAM 20 MG TABLET PO SCH (22:19)
[2017-04-06] MEDS: POLYETHYL GLYCOL 3350 17gm PACKET PO SCH (22:19)
[2017-04-06] MEDS: SIMVASTATIN 20 MG TABLET PO SCH (22:19)
--- NOTE | 2017-04-07 08:36 | Pharmacy Consult ---
Pharmacy Consult-Warfarin - Laboratory Information 04/03/17 04/04/17 04/05/17 04:30 04:38 09:36 INR 1.53 H 2.83 H 3.04 H 04/06/17 04/07/17 09:34 04:18 INR 2.56 H 3.15 H - Consult Information 71 y.o. Male on Warfarin protocol for Mechanical mitral valve. goal INR range= 2.5 to 3.5 Will give Warfarin 2 mg po x 1 dose. Pharmacy will monitor and adjust as needed. Thank you for the Warfarin dosing protocol, Arminda Griggs RPh date INR dose 04/02 -- 2 mg 04/03 1.53 7.5 mg 04/04 2.83 no dose given 04/05 3.04 2 mg 04/06 2.56 4 mg 04/07 3.15 plan: 2 mg
[2017-04-07] MEDS: METFORMIN 500 MG TABLET PO SCH ×2 (09:00→16:53)
[2017-04-07] MEDS: MIDODRINE 10 MG TABLET PO SCH ×3 (09:00→16:00)
[2017-04-07] MEDS: BuPROPion IR 75 MG TABLET PO SCH ×2 (09:00→22:18)
[2017-04-07] MEDS: DOCUSATE SODIUM 100 MG CAPSULE PO SCH ×2 (09:01→22:18)
--- NOTE | 2017-04-07 11:13 | IRU Progress Note ---
- Subjective/Serverity of Illness Mr. Blackman is seen in his room on the acute rehabilitation unit. He has a brother compensated recent history. He was admitted to [facility] on 03/11/2017 with sepsis due to streptococcus. Source is not clear at this time. However he was noted to have vegetations on both mitral and aortic valves. Ultimately he underwent bioprosthetic valve replacements of both the mitral and aortic valves. His chads to fast score was greater than 3 indicating high risk for CVA and he is therefore on chronic anticoagulation at present. He was seen by Dr. Cayetano Bautista, infectious disease in [place]. He is on Rocephin with regard to the bacteremia/sepsis. And date for that is scheduled for 05/10/2017. He denies any recent fevers. Reports some dyspnea with activity but overall seems to be tolerating things reasonably well. He denies any nausea or vomiting. Continues to have a catheter in place. Medical problems are identified as follows: 1. Recent bacterial endocarditis due to Streptococcus. He is on Rocephin through May 10. Dr. Cayetano Bautista is his ID doctor. 2. Recent bioprosthetic replacement of mitral and aortic valves. This is due to the bacterial endocarditis. 3. Acute kidney injury superimposed upon chronic kidney disease 4. Orthostatic hypotension for which he is taking midodrine. 5. Recent non-ST segment elevated myocardial infarction while in [place] 6. Chronic anticoagulation with current INR around 3 7. Systolic congestive heart failure with reported ejection fraction less than 30% by echo 8. Diabetes mellitus type 2. Exam Vital Signs: Temperature 97.8 F 04/07/17 08:33 Pulse Rate 86 04/07/17 08:33 Respiratory Rate 161 H 04/07/17 08:33 Blood Pressure 91/65 04/07/17 08:59 Pulse Oximetry 93 04/07/17 08:33 Oxygen Delivery Method Room Air Height/Weight/BMI: Height 1.83 m Weight 81 kg Body Mass Index 24.2 - Constitutional Present: no acute distress Comments: The patient is awake, alert and oriented and in no acute distress. However, he does appear to be weak and depressed. Pupils are equal. The neck is supple. Chest: Clear to auscultation bilaterally. Cor: RR with no gallop, click nor murmur. Heart sounds are a bit distant. Abd: soft with normo-active bowel sounds. There are no masses, no tenderness and no guarding. Extremities: No edema is noted. There are good pulses in both ankles. No cyanosis is present. The patient's wound on his anterior chest is clean and dry and without inflammation. Results IRU - Labs Labs: Reviewed laboratory studies. Hemoglobin stable. Sepsis Assessment - Evaluation Sepsis screening result: No Definite Risk IRU A/P (1) Debility Current visit: Yes Status: Chronic Due to his recent infection and prolonged ICU stay, he is significantly debilitated. (2) Bacterial endocarditis Qualifiers: Chronicity: subacute Qualified Code(s): I33.0 - Acute and subacute infective endocarditis Current visit: Yes Status: Acute Patient is afebrile. He remains on Rocephin through 05/10/2017. (3) History of mitral valve replacement with bioprosthetic valve Current visit: Yes Status: Acute (4) History of aortic valve replacement with bioprosthetic valve Current visit: Yes Status: Acute (5) Non-STEMI (non-ST elevated myocardial infarction) Current visit: Yes Status: Acute Patient suffered non-STEMI myocardial infarction while in [place]. Currently stable. Denies chest pains. (6) Systolic heart failure Qualifiers: Heart failure chronicity: acute on chronic Qualified Code(s): I50.23 - Acute on chronic systolic (congestive) heart failure Current visit: Yes Status: Acute Has a reported ejection fraction of 30%. Patient does have orthostatic hypotension. (7) Orthostatic hypotension Current visit: Yes Status: Acute He remains on midodrine for his orthostatic hypotension. Blood pressures remain low and are monitored carefully. This is symptomatic. 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 DVT Prophylaxis: KISHORE Beal, Coumadin Resuscitation Status: Full Code - Course Hospital Course: Gene Harrell MD: 04/07/17 11:18 Continues to require a lot of encouragement. Working with PT and OT on transfers. Blood pressure around 90 which impacts his ability to place weight in therapy. Remains on Rocephin. - Interventions to Obtain Goals PT Treatment Plan: Balance/Proprioception, Functional Activities, Gait Training , Patient/Family Education, Therapeutic Exercise OT Treatment Plan: ADL (Basic Care), Balance Training, IADL, Pt./Family Education, Ther. Exercise for ADL
--- NOTE | 2017-04-07 11:24 | Progress Note ---
Subjective: Magdaleno was resting in bed this morning after working with therapy. His BP dropped quite low this morning - he sat up in bed without having first taking a Midodrine. He felt weak, tired, and became sweaty and felt like he might pass out. Currently, his VS are better and he feels better too. He denies any pain. He denies feeling short of breath. No abdominal discomfort or GI complaints. Appetite is stable and bowels are moving. Objective Vital signs: Temperature 97.8 F 04/07/17 08:33 Pulse Rate 86 04/07/17 08:33 Respiratory Rate 161 H 04/07/17 08:33 Blood Pressure 91/65 04/07/17 08:59 Pulse Oximetry 93 04/07/17 08:33 Oxygen Delivery Method Room Air Height/Weight/BMI: Height 1.83 m Weight 81 kg Body Mass Index 24.2 - Constitutional Present: no acute distress, well nourished, well developed, thin - Routine HEENT Exam Eye: Absent: conjunctival icterus ENT: Present: mucous membranes moist, oropharynx clear - Routine Respiratory Exam Present: CTA bilaterally, diminished air movement - Routine Cardiovascular Exam Present: RRR, S1, S2 - Routine Abdominal Exam Present: soft, normoactive bowel sounds, non distended, non tender - Routine Extremities Exam Present: no edema, pulses intact - Routine Musculoskeletal Exam Musculoskeletal: Present: no clubbing or cyanosis - Routine Skin Exam Present: intact, dry, pallor, warm - Routine Neurological Exam Present: alert, oriented X3 - Routine Psychiatric Exam Present: normal thought process, cooperative. Absent: normal affect (flat affect) Results - Labs CBC & Chem 7: 04/07/17 04:18 04/07/17 04:18 Assessment and Plan (1) General weakness Current visit: Yes Status: Acute (2) Debility Current visit: Yes Status: Chronic DVT Prophylaxis: Coumadin Resuscitation Status: Full Code Assessment and Plan: Impression General weakness and debility secondary to severe illness. 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 No evidence of fluid overload - continue to hold Lasix and monitor closely. Potassium is on hold. Anemia - hgb down to 9.0; pale in color. Stools documented as brown [not black] - repeat CBC in am. Dr. Isabel is planning on seeing Magdaleno today. Would be hesitant to start Flomax with ongoing orthostasis. Continue to monitor blood sugars - no hypoglycemia since restarting metformin. High risk med: Coumadin. INR >3. Sepsis Assessment - Evaluation Sepsis screening result: No Definite Risk Hospital Course Summary Disclaimer: The visit summary below is not to be considered part of the above Progress Note. Hospital Course: 04/03/17-initial consult Impression General weakness and debility secondary to severe illness. 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 Continue on Midodrine 10 mg TID. This morning will given him a 500ml bolus of NS given significant orthostasis 62 systolic while sitting on the edge of the bed. Upon recheck by myself blood pressure was 91 systolic. Discussed with nursing staff will have to do position changes slowly with patient. He does become significantly symptomatic, complaining of lightheadedness 1. Blood pressure does decrease. Given recent aortic and mitral valve endocarditis he will require 8 weeks total of antibiotic therapy. It is recommended that he continue on IV Rocephin daily through 05/10/17. Will require chronic anticoagulation on warfarin, INR ordered for now. Will place pharmacy consult for Coumadin managing. [id number] score is >3 , indicating he has a high risk for CVA Will monitor blood sugars routinely. Patient was placed back on metformin and glyburide at time of discharge from [facility]. Will need to monitor renal function carefully given recent acute kidney injury. Asked nursing staff to do Pettit, bladder retraining. Hopeful to discontinue Pettit catheter in the next 1-2 days. Check daily CBC and BMP to follow blood counts, renal function and electrolytes. Encourage work with PT and OT for ongoing strengthening. It is patient's goal to return independently at home Will discuss further orders and plan of care with attending, Dr. Leach. At time of discharge medical care is returned to Dr. Edith Castro at [facility]. 04/04/17 In light on episodes of hypoglycemia, Will place glyburide on hold. Will continue with only metformin. May need to consider decreasing the dose to 500 twice a day if persistent hypoglycemia. Regarding orthostatic hypotension. We will change the timing of the dosing of midodrine to 7 a.m., 11 a.m., 3 p.m. Will plan to call stabber that followed patient while at [facility], Dr. Tyler Goodman (With [facility] cardiology) Lasix remains on hold Dr Palomo (urologist) was consulted given retention with pettit overnight. He recommended started Flomax, However will not initiate this until orthostasis is better controlled. At this point will leave pettit cath in place. He is planning to see patient Friday in consultation Continue to follow routine labs. INR therapeutic 2.83. Lovenox subcutaneous daily for DVT prophylaxis Orders and plan of care discussed with attending, Dr. Leach 04/06/17 His blood sugars are trending up and he is eating better. Will resume his metformin 500 mg twice a day at this point (his home dose is 1000 mg twice a day ). Glyburide still on hold. His orthostasis is much better. Patient continues on midodrine. Lasix is still on hold. He is still on potassium supplement and his potassium has been running 4.2. Will hold potassium at this point as well. Patient previously had some retention with his Pettit. It had been suggested that he should start Flomax and Dr. Isabel was going to consult patient. Flomax had not been started at that time due to his orthostasis. He has not had any problems the past few days. At this point, will cancel the consult for Dr. Isabel and start bladder training 04/07/17 Discussed orthostasis with nursing staff - they will start giving Midodrine before rising in the morning. No evidence of fluid overload - continue to hold Lasix and monitor closely. Potassium is on hold. Anemia - hgb down to 9.0; pale in color. Stools documented as brown [not black] - repeat CBC in am. Dr. Isabel is planning on seeing Magdaleno today. Would be hesitant to start Flomax with ongoing orthostasis. Continue to monitor blood sugars - no hypoglycemia since restarting metformin.
[2017-04-07] MEDS ORDERED: FALL RISK - PHARMACY CONSULT XX ONE (11:44)
[2017-04-07] MEDS ORDERED: WARFARIN 2 MG TABLET PO ONE (12:00)
--- NOTE | 2017-04-07 15:08 | Urology Consult Note ---
Urology [facility] - Data of Consult Consult date: 04/07/17 Requesting Physician: Gene Harrell MD Primary Care Provider: Norah Pedroza MD Family Provider: Norah Pedroza MD - Consult Narrative Reason for consult: urinary retention History of present illness: 71-year-old male admitted to rehabilitation at [facility] after undergoing valve replacement surgery in [place]. Patient has an indwelling Pettit for urinary retention and failed the voiding trial multiple times. He denies problems with urination prior to surgery. No previous urological history. Urology was consulted to manage his retention Review of Systems - Constitutional Constitutional: Present: weakness. Absent: chills, headache(s), weight gain - EENT Eyes: Absent: blurry vision, change in vision, loss of vision Ears: Absent: ear discharge, ear pain Nose: Absent: change in smell, pain Mouth/Throat: Absent: mucosa moist, normal dentition - Cardiovascular Cardiovascular: Absent: chest pain, cyanosis - Respiratory Respiratory: Present: dyspnea. Absent: cough - Gastrointestinal Gastrointestinal: Present: change in bowel habits. Absent: abdominal pain, dysphagia - Genitourinary Genitourinary: Present: dysuria, urinary hesitancy. Absent: genital pain, hematuria, nocturia - Neurological Neurological: Absent: abnormal movements, convulsions, dizziness - Psychiatric Psychiatric: Absent: anxiety, auditory hallucinations, difficulty concentrating PFSH Patient Stated Medical History Syncope Yes Angina Yes Cardiac Arrhythmia Yes Hypertension Yes Hypotension Yes Myocardial Infarction Yes Diabetes Mellitus Type 2 Yes Gastroesophageal Reflux Yes Disease Hx Benign Prostatic Yes Hyperplasia Hx Incontinence No Other Yes: kidney infection hx of Sepsis Yes Depression Yes Surgical History: Pacemaker. 03/14/17- Bioprosthetic aortic valve replacement and mitral valve replacement - Social History Current residence: Apartment/Private Home Medications Home Medications Medication Instructions Recorded Confirmed Type Acetaminophen Supp [Tylenol Supp] 650 mg RECTALLY Q4HR PRN MDD 6 04/02/17 History supps/24 hours BuPROPion IR [Wellbutrin Ir] 75 mg PO BID 04/02/17 04/02/17 History Ceftriaxone [Rocephin] 2 gm IV DAILY 04/02/17 04/02/17 History Citalopram Hydrobromide [Celexa] 20 mg PO HS 04/02/17 04/02/17 History Docusate Sodium [Colace] 1 cap PO BID 04/02/17 04/02/17 History Furosemide [Lasix] 1 tab PO DAILY 04/02/17 04/02/17 History GlyBURIDE [Micronase] 2.5 mg PO DAILY 04/02/17 04/02/17 History Metformin Xr [Glucophage Xr] 1,000 mg PO BID 04/02/17 04/02/17 History Midodrine [Proamatine] 10 mg PO ,,04/02/17 04/02/17 History Polyethylene Glycol 3350 [Miralax] 17 gm PO HS 04/02/17 04/02/17 History Potassium Chloride ER Tab [K-Dur] 1 tab PO DAILY 04/02/17 04/02/17 History Simvastatin [Zocor] 20 mg PO HS 04/02/17 04/02/17 History Warfarin [Coumadin] 2 mg PO 1700 04/02/17 04/02/17 History Allergies Allergy/AdvReac Type Severity Reaction Status Date / Time No Known Allergies Allergy Verified 04/02/17 13:14 Urology Results - Labs CBC & Chem 7: 04/07/17 04:18 04/07/17 04:18 Labs: Short CBC 04/07/17 Range/Units 04:18 WBC 6.2 (4.5-11.0) T/MM3 Hgb 9.0 L (13.5-17.5) GM/DL Hct 28.4 L (41-53) % Plt Count 232 (130-400) T/MM3 [facility] 04/07/17 04:18 Sodium 141 Potassium 4.1 Chloride 111 H Carbon Dioxide 20 L BUN 22.0 H Creatinine 1.0 Glucose 83 Calcium 8.5 Urology Exam Vital signs: Temperature 97.8 F 04/07/17 08:33 Pulse Rate 86 04/07/17 08:33 Respiratory Rate 161 H 04/07/17 08:33 Blood Pressure 91/65 04/07/17 08:59 Pulse Oximetry 93 04/07/17 08:33 Oxygen Delivery Method Room Air - Constitutional no acute distress - HEENT Exam Head: Present: normocephalic Eye: Present: EOMI ENT: Present: mucous membranes moist - Abdominal/Groin Exam Present: soft - Exam Patient deferred: penile exam (pettit in placewith clear yellow urine), testicular exam Penile: Absent: swelling, plaque, hydrocele - Extremities Exam Absent: cyanosis, clubbing Assessment and Plan 71-year-old male with urinary retention Plan: Patient is unable to tolerate tamsulosin secondary to hypotension. Recommend Uroxatral (alfuzosin) 10 mg at bedtime. If patient is started on Uroxatral today recommend a voiding trial Friday morning. Please call for any questions or concerns. Thank you for the consult Sepsis Assessment - Evaluation Sepsis screening result: No Definite Risk Hospital Course Summary Disclaimer: The visit summary below is not to be considered part of the above Progress Note. Hospital Course: 04/03/17-initial consult Impression General weakness and debility secondary to severe illness. 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 Continue on Midodrine 10 mg TID. This morning will given him a 500ml bolus of NS given significant orthostasis 62 systolic while sitting on the edge of the bed. Upon recheck by myself blood pressure was 91 systolic. Discussed with nursing staff will have to do position changes slowly with patient. He does become significantly symptomatic, complaining of lightheadedness 1. Blood pressure does decrease. Given recent aortic and mitral valve endocarditis he will require 8 weeks total of antibiotic therapy. It is recommended that he continue on IV Rocephin daily through 05/10/17. Will require chronic anticoagulation on warfarin, INR ordered for now. Will place pharmacy consult for Coumadin managing. [id number] score is >3 , indicating he has a high risk for CVA Will monitor blood sugars routinely. Patient was placed back on metformin and glyburide at time of discharge from [facility]. Will need to monitor renal function carefully given recent acute kidney injury. Asked nursing staff to do Pettit, bladder retraining. Hopeful to discontinue Pettit catheter in the next 1-2 days. Check daily CBC and BMP to follow blood counts, renal function and electrolytes. Encourage work with PT and OT for ongoing strengthening. It is patient's goal to return independently at home Will discuss further orders and plan of care with attending, Dr. Leach. At time of discharge medical care is returned to Dr. Edith Castro at [facility]. 04/04/17 In light on episodes of hypoglycemia, Will place glyburide on hold. Will continue with only metformin. May need to consider decreasing the dose to 500 twice a day if persistent hypoglycemia. Regarding orthostatic hypotension. We will change the timing of the dosing of midodrine to 7 a.m., 11 a.m., 3 p.m. Will plan to call seo manager that followed patient while at [facility], Dr. Tyler Goodman (With [facility] cardiology) Lasix remains on hold Dr Palomo (urologist) was consulted given retention with pettit overnight. He recommended started Flomax, However will not initiate this until orthostasis is better controlled. At this point will leave pettit cath in place. He is planning to see patient Friday in consultation Continue to follow routine labs. INR therapeutic 2.83. Lovenox subcutaneous daily for DVT prophylaxis Orders and plan of care discussed with attending, Dr. Leach 04/06/17 His blood sugars are trending up and he is eating better. Will resume his metformin 500 mg twice a day at this point (his home dose is 1000 mg twice a day ). Glyburide still on hold. His orthostasis is much better. Patient continues on midodrine. Lasix is still on hold. He is still on potassium supplement and his potassium has been running 4.2. Will hold potassium at this point as well. Patient previously had some retention with his Pettit. It had been suggested that he should start Flomax and Dr. Isabel was going to consult patient. Flomax had not been started at that time due to his orthostasis. He has not had any problems the past few days. At this point, will cancel the consult for Dr. Isabel and start bladder training 04/07/17 Discussed orthostasis with nursing staff - they will start giving Midodrine before rising in the morning. No evidence of fluid overload - continue to hold Lasix and monitor closely. Potassium is on hold. Anemia - hgb down to 9.0; pale in color. Stools documented as brown [not black] - repeat CBC in am. Dr. Isabel is planning on seeing Magdaleno today. Would be hesitant to start Flomax with ongoing orthostasis. Continue to monitor blood sugars - no hypoglycemia since restarting metformin.
[2017-04-07] MEDS: CEFTRIAXONE 2 GM in NS 100 ML IV SCH (16:00)
[2017-04-07] MEDS ORDERED: ALFUZOSIN ER 10 MG TABLET PO SCH (22:00)
[2017-04-07] MEDS: CITALOPRAM 20 MG TABLET PO SCH (22:17)
[2017-04-07] MEDS: POLYETHYL GLYCOL 3350 17gm PACKET PO SCH (22:17)
[2017-04-07] MEDS: SIMVASTATIN 20 MG TABLET PO SCH (22:18)
[2017-04-08] MEDS: MIDODRINE 10 MG TABLET PO SCH ×3 (06:35→15:17)
--- NOTE | 2017-04-08 07:33 | Pharmacy Consult ---
Pharmacy Consult-Warfarin - Laboratory Information 04/03/17 04/04/17 04/05/17 04:30 04:38 09:36 INR 1.53 H 2.83 H 3.04 H 04/06/17 04/07/17 04/08/17 09:34 04:18 04:47 INR 2.56 H 3.15 H 3.97 H - Consult Information INR is 3.97. Will order no warfarin today. Thank you.
[2017-04-08] MEDS ORDERED: ONDANSETRON ODT 4 MG TABLET PO PRN (07:35)
--- NOTE | 2017-04-08 08:57 | XRay Report ---
Indication: nausea; hx chf PROCEDURE: XR chest 1V: Encounter: Initial Comparison: April 04, 2017 Findings: Right PICC line remains in place. Left pacemaker. Prior sternotomy and cardiac valve replacement. Mild persistent airspace opacity in the left lower lobe with small effusions. The overall appearance is similar to the comparison. No pneumothorax. Heart size and mediastinal contours are stable. Impression: Stable appearance of the chest with small pleural effusions and left basilar airspace disease. .
--- NOTE | 2017-04-08 09:14 | Procedure Note ---
Procedure Note: Magdaleno has been nauseated this morning, but after a Zofran ODT his nausea had much improved. He reports being more tired and fatigued ever since yesterday afternoon. He complains of mild sweating this morning. He states he rested well for most of the night. He denies any chest pain, tightness, shoulder pain, neck or jaw pain. He denies feeling short of breath.
--- NOTE | 2017-04-08 09:18 | Progress Note ---
<GreciaEda Joanie - Last Filed: 04/08/17 09:14> Subjective: Magdaleno has been nauseated this morning, but after a Zofran ODT his nausea had much improved. He reports being more tired and fatigued ever since yesterday afternoon. He complains of mild sweating this morning. He states he rested well for most of the night. He denies any chest pain, tightness, shoulder pain, neck or jaw pain. He denies feeling short of breath. He denies seeing any blood in his Pettit or in his bowel movements. Objective Vital signs: Temperature 97.6 F 04/08/17 07:29 Pulse Rate 96 04/08/17 07:29 Respiratory Rate 20 04/08/17 07:29 Blood Pressure 72/50 04/08/17 07:29 Pulse Oximetry 99 04/08/17 07:29 Oxygen Delivery Method Room Air Height/Weight/BMI: Height 1.83 m Weight 81 kg Body Mass Index 24.2 - Constitutional Present: mild distress, thin - Routine HEENT Exam Eye: Absent: conjunctival icterus ENT: Present: mucous membranes moist, oropharynx clear - Routine Respiratory Exam Present: decreased breath sounds - Routine Cardiovascular Exam Present: RRR, S1, S2 - Routine Abdominal Exam Present: soft, normoactive bowel sounds, non distended, non tender - Routine Exam Comments: Pettit to DD; urine clear, no gross hematuria - Routine Extremities Exam Present: no edema, pulses intact - Routine Musculoskeletal Exam Musculoskeletal: Present: no clubbing or cyanosis - Routine Skin Exam Present: intact, pallor. Absent: dry (diaphoretic) - Routine Neurological Exam Present: alert, oriented X3 - Routine Psychiatric Exam Present: normal affect, normal thought process, cooperative Results - Labs CBC & Chem 7: 04/08/17 08:46 04/08/17 04:47 Assessment and Plan (1) General weakness Current visit: Yes Status: Acute (2) Debility Current visit: Yes Status: Chronic DVT Prophylaxis: Coumadin Resuscitation Status: Full Code Assessment and Plan: Impression General weakness and debility secondary to severe illness. 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 Type and screen ordered. Check stool for occult blood. Pt looks ill - pale, diaphoretic, weak. BP consistently low. Would expect a lower threshold for transfusion given recent endocarditis/valve replacements. Check EKG and trop d/t nausea and concerning symptoms. Check CXR - high risk for volume overload and decreased breath sounds. INR increased, nearly 4 - received 2 mg warfarin yesterday. Monitor closely for blood loss. BG under good control on lower dose Metformin Continue IV Rocephin through 05/10/17. WBC normal; afebrile; no other SIRS criteria. qSOFA positive for ongoing hypotension. Overall, concerning picture given acute anemia, supratherapeutic INR, nausea/ diaphoresis/fatigue - high risk for ACS. Discussed case with Dr. Leach. Sepsis Assessment - Evaluation Sepsis screening result: No Definite Risk Hospital Course Summary Disclaimer: The visit summary below is not to be considered part of the above Progress Note. Hospital Course: 04/03/17-initial consult Impression General weakness and debility secondary to severe illness. 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 Continue on Midodrine 10 mg TID. This morning will given him a 500ml bolus of NS given significant orthostasis 62 systolic while sitting on the edge of the bed. Upon recheck by myself blood pressure was 91 systolic. Discussed with nursing staff will have to do position changes slowly with patient. He does become significantly symptomatic, complaining of lightheadedness 1. Blood pressure does decrease. Given recent aortic and mitral valve endocarditis he will require 8 weeks total of antibiotic therapy. It is recommended that he continue on IV Rocephin daily through 05/10/17. Will require chronic anticoagulation on warfarin, INR ordered for now. Will place pharmacy consult for Coumadin managing. [id number] score is >3 , indicating he has a high risk for CVA Will monitor blood sugars routinely. Patient was placed back on metformin and glyburide at time of discharge from [place]. Will need to monitor renal function carefully given recent acute kidney injury. Asked nursing staff to do Pettit, bladder retraining. Hopeful to discontinue Pettit catheter in the next 1-2 days. Check daily CBC and BMP to follow blood counts, renal function and electrolytes. Encourage work with PT and OT for ongoing strengthening. It is patient's goal to return independently at home Will discuss further orders and plan of care with attending, Dr. Leach. At time of discharge medical care is returned to Dr. Edith Castro at [facility]. 04/04/17 In light on episodes of hypoglycemia, Will place glyburide on hold. Will continue with only metformin. May need to consider decreasing the dose to 500 twice a day if persistent hypoglycemia. Regarding orthostatic hypotension. We will change the timing of the dosing of midodrine to 7 a.m., 11 a.m., 3 p.m. Will plan to call medical detail representative that followed patient while at [place], Dr. Tyler Goodman (With [facility]) Lasix remains on hold Dr Palomo (urologist) was consulted given retention with pettit overnight. He recommended started Flomax, However will not initiate this until orthostasis is better controlled. At this point will leave pettit cath in place. He is planning to see patient Friday in consultation Continue to follow routine labs. INR therapeutic 2.83. Lovenox subcutaneous daily for DVT prophylaxis Orders and plan of care discussed with attending, Dr. Leach 04/06/17 His blood sugars are trending up and he is eating better. Will resume his metformin 500 mg twice a day at this point (his home dose is 1000 mg twice a day ). Glyburide still on hold. His orthostasis is much better. Patient continues on midodrine. Lasix is still on hold. He is still on potassium supplement and his potassium has been running 4.2. Will hold potassium at this point as well. Patient previously had some retention with his Pettit. It had been suggested that he should start Flomax and Dr. Isabel was going to consult patient. Flomax had not been started at that time due to his orthostasis. He has not had any problems the past few days. At this point, will cancel the consult for Dr. Isabel and start bladder training 04/07/17 Discussed orthostasis with nursing staff - they will start giving Midodrine before rising in the morning. No evidence of fluid overload - continue to hold Lasix and monitor closely. Potassium is on hold. Anemia - hgb down to 9.0; pale in color. Stools documented as brown [not black] - repeat CBC in am. Dr. Isabel is planning on seeing Magdaleno today. Would be hesitant to start Flomax with ongoing orthostasis. Following discussion, added Uroxatral which has more favorable side effect profile compared to Flomax (less hypotension). Continue to monitor blood sugars - no hypoglycemia since restarting metformin. 04/08/17 Hgb down to 7.9 - on repeat it was 8.1. Type and screen ordered. Check stool for occult blood. Pt looks ill - pale, diaphoretic, weak. BP consistently low. Would expect a lower threshold for transfusion given recent endocarditis/valve replacements. Check EKG and trop d/t nausea and concerning symptoms. Check CXR - high risk for volume overload and decreased breath sounds. INR increased, nearly 4 - received 2 mg warfarin yesterday. Monitor closely for blood loss. BG under good control on lower dose Metformin Continue IV Rocephin through 05/10/17. WBC normal; afebrile; no other SIRS criteria. qSOFA positive for ongoing hypotension. Overall, concerning picture given acute anemia, supratherapeutic INR, nausea/ diaphoresis/fatigue - high risk for ACS. <Ana Leach - Last Filed: 04/08/17 17:37> Objective Vital signs: Temperature 97.9 F 04/08/17 16:41 Pulse Rate 79 04/08/17 16:41 Respiratory Rate 20 04/08/17 16:41 Blood Pressure 74/43 04/08/17 16:41 Pulse Oximetry 97 04/08/17 16:41 Height/Weight/BMI: Height 1.83 m Weight 81 kg Body Mass Index 24.2 Results - Labs CBC & Chem 7: 04/08/17 08:46 04/08/17 04:47 Assessment and Plan (1) General weakness Current visit: Yes Status: Acute (2) Debility Current visit: Yes Status: Chronic (3) Orthostatic hypotension Current visit: Yes Status: Acute Assessment and Plan: I have independently evaluated and examined this patient. I reviewed the chart, the patient's history, and the IMCU NURSE/PA's documented findings as above. We discussed and formulated the assessment and plan as above with additions as below: Mr. Blackman was resting in bed when seen this afternoon. Blood pressures remained low through the afternoon but the patient reports no concerns other than generalized weakness. He was lying flat and denied dyspnea. His appetite is good. He complains of awareness of his bladder intermittently when the Pettit catheter is drained-continuous drainage, nursing confirms the catheter is not being clamped; suspect patient having some spasm. Generalized pallor, NAD Irregular rhythm, no mechanical clicks present, variable neck vein distention Respirations nonlabored, anterior breath sounds clear Abdomen benign, no peripheral edema Drop in hemoglobin noted, anticipate need for transfusion if drops further-May help blood pressure. Daily weights. Discussed with Dr. Adame; telemetry ordered. Transfer records reviewed and have confirmed that both valves are tissue valves ; mitral is not mechanical as suggested by exam and confirmed by chest x-ray. Discontinue any medications that have potential to aggravate hypotension- clearly blood pressure is worse today than it has been on a continuous basis prior days. Discussed altering timing of PT to later in the morning to minimize risk of orthostasis early in the day with Dr. Abel. Pharmacy alerted to altered INR goal with atrial fibrillation as indication instead of mechanical MVR. Hospital Course Summary Disclaimer: The visit summary below is not to be considered part of the above Progress Note. Addendum entered and electronically signed by Eda Paige APRN 04/08/17 16: 11: NS 500 ml bolus ordered for hypotension/orthostasis. Stool positive for occult blood. Consulted and discussed case with Dr. Adame. Given persistent orthostasis, will hold Uroxatral. Discussed with Dr. Palomo as well - agrees with holding med if side effects are too dire. He will speak with Magdaleno tomorrow about other options.
[2017-04-08] MEDS: METFORMIN 500 MG TABLET PO SCH ×2 (09:40→17:38)
[2017-04-08] MEDS: BuPROPion IR 75 MG TABLET PO SCH ×2 (09:40→21:17)
[2017-04-08] MEDS: SALINE FLUSH 10ml SYRINGE IV PRN ×2 (09:40→17:38)
[2017-04-08] MEDS: DOCUSATE SODIUM 100 MG CAPSULE PO SCH ×2 (09:41→21:17)
--- NOTE | 2017-04-08 11:13 | IRU Progress Note ---
- Subjective/Serverity of Illness Patient was interviewed and examined in his room on the rehabilitation unit. Continues to complain of lightheadedness when he is sitting up. Has been somewhat diaphoretic and nauseous. Hospitalists are following and have ordered troponin and other evaluation. Troponin is negative at present. His hypotension prevents therapy at this time. We will put him on therapy. Denies overt chest pain at present. Patient's blood pressure continues to be in the 60s to 80s. His blood sugars are well controlled. Hemoglobin is down to 7.9. Upon repeat it was 8.1. Type and screen has been ordered. Checking stools for Hemoccult. Exam Vital Signs: Temperature 97.6 F 04/08/17 07:29 Pulse Rate 96 04/08/17 07:29 Respiratory Rate 20 04/08/17 07:29 Blood Pressure 69/53 04/08/17 09:38 Pulse Oximetry 99 04/08/17 07:29 Oxygen Delivery Method Room Air Height/Weight/BMI: Height 1.83 m Weight 81 kg Body Mass Index 24.2 Comments: The patient is awake, alert and oriented and in no acute distress at present. However when he is up and about he does definitely have lightheadedness and feels "it coming on." Denies actual chest pain. Has had some sweating. Pupils are equal. The neck is supple. Chest: Clear to auscultation bilaterally. Cor: RR with no gallop, click nor murmur. Distant heart sounds. Abd: soft with normo-active bowel sounds. There are no masses, no tenderness and no guarding. Extremities: No edema is noted. There are fairly good pulses in both ankles. No cyanosis is present. The patient's wound in the chest is clean and dry and without inflammation. Reviewed labs, including normal troponin. Sepsis Assessment - Evaluation Sepsis screening result: No Definite Risk IRU A/P (1) Debility Current visit: Yes Status: Chronic Continues to have significant muscle weakness related to his recent acute illness with sepsis, to valve replacement surgeries etc. as well as respiratory failure on the ventilator in [place]. (2) Bacterial endocarditis Qualifiers: Chronicity: subacute Qualified Code(s): I33.0 - Acute and subacute infective endocarditis Current visit: Yes Status: Acute Remains afebrile. I do not hear any new murmurs. He is on Rocephin through the end of April. (3) History of mitral valve replacement with bioprosthetic valve Current visit: Yes Status: Acute (4) History of aortic valve replacement with bioprosthetic valve Current visit: Yes Status: Acute (5) Non-STEMI (non-ST elevated myocardial infarction) Current visit: Yes Status: Acute (6) Systolic heart failure Qualifiers: Heart failure chronicity: acute on chronic Qualified Code(s): I50.23 - Acute on chronic systolic (congestive) heart failure Current visit: Yes Status: Acute Does have a low ejection fraction. No doubt this is contributing to his hypotension as well. Consider possibility of multisystem atrophy/idiopathic orthostatic hypotension. Remains on midodrine. Appreciate input of hospitalists. (7) Orthostatic hypotension Current visit: Yes Status: Acute His orthostatic hypotension remains the primary barrier to progress at the present time. This is being addressed by the hospitalists. 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 DVT Prophylaxis: Coumadin Resuscitation Status: Full Code - Course Hospital Course: Gene Harrell MD: 04/07/17 11:18 Continues to require a lot of encouragement. Working with PT and OT on transfers. Blood pressure around 90 which impacts his ability to place weight in therapy. Remains on Rocephin. 04/08/17 11:17 Orthostatic hypotension remains an issue. We will hold therapy until cleared by hospitalists. Medical workup in progress. Troponin negative/normal. Remains on Rocephin without evidence of recurrence of endocarditis. - Interventions to Obtain Goals PT Treatment Plan: Balance/Proprioception, Functional Activities, Gait Training , Patient/Family Education, Therapeutic Exercise OT Treatment Plan: ADL (Basic Care), Balance Training, IADL, Pt./Family Education, Ther. Exercise for ADL Goals Progress/Modifications: I reviewed his medical situation. We will put a hold on therapy until he is stable from a medical standpoint. Orthostatic hypotension continues to be a primary issue.
--- NOTE | 2017-04-08 15:11 | IRU Team Meeting ---
IRU Team Meeting - Nursing Vital Signs: Vital Signs - 24 hr 04/07/17 16:00 04/07/17 17:56 04/07/17 19:22 Temperature 98.3 F 98.0 F Pulse Rate 88 89 Respiratory Rate 12 16 Blood Pressure 91/66 84/62 92/62 Pulse Oximetry 98 98 04/08/17 07:29 04/08/17 09:38 04/08/17 12:59 Temperature 97.6 F Pulse Rate 96 78 Respiratory Rate 20 Blood Pressure 72/50 69/53 88/57 Pulse Oximetry 99 Current Medications: Acetaminophen (Tylenol Supp) 650 mg MN Q4H PRN PRN Reason: Pain Alfuzosin HCl (Uroxatral) 10 mg PO HS [facility] Last Admin: 04/07/17 22:18 Dose: 10 mg Bupropion HCl (Wellbutrin Ir) 75 mg PO BID [facility] Last Admin: 04/08/17 09:40 Dose: 75 mg Citalopram Hydrobromide (Celexa) 20 mg PO [facility] Last Admin: 04/07/17 22:17 Dose: 20 mg Docusate Sodium (Colace) 100 mg PO BID [facility] Last Admin: 04/08/17 09:41 Dose: Not Given Furosemide (Lasix) 20 mg PO DAILY [facility] Last Admin: 04/03/17 09:02 Dose: 20 mg Glucose (Glutose 15) 37.5 gm PO PRN PRN PRN Reason: Hypoglycemia Glyburide (Micronase) 2.5 mg PO WB [facility] Last Admin: 04/04/17 08:42 Dose: 2.5 mg Ceftriaxone Sodium 2 gm/ (Sodium Chloride) 100 mls @ 200 mls/hr IV Q24H [facility] Last Infusion: 04/07/17 16:53 Dose: Infused Metformin HCl (Glucophage) 500 mg PO BIDWM [facility] Last Admin: 04/08/17 09:40 Dose: 500 mg Midodrine (Proamatine) 10 mg PO 0700,1100,1500 [facility] Last Admin: 04/08/17 11:38 Dose: 10 mg Ondansetron HCl (Zofran Po) 4 mg PO Q6H PRN PRN Reason: Nausea &/or vomiting Last Admin: 04/08/17 07:40 Dose: 4 mg Polyethylene Glycol (Miralax) 17 gm PO [facility] Last Admin: 08/28/17 22:17 Dose: Not Given Potassium Chloride (K-Dur) 10 meq PO WB [facility] Last Admin: 04/06/17 08:20 Dose: 10 meq Simvastatin (Zocor) 20 mg PO HS [facility] Last Admin: 04/07/17 22:18 Dose: 20 mg Sodium Chloride (Iv Flush) 10 ml IV PRN PRN PRN Reason: Flushing Last Admin: 04/08/17 09:40 Dose: 10 ml Warfarin Sodium (Coumadin Protocol) 0 [facility] NOTE [facility] Comments: I certify that I personally led the interdisciplinary team meeting and agree with comments, barriers and goals indicated. Team meeting was held in the patient's room with the patient and the following family members present: Daughter. Medically, therapy is hindered by continued problems with hypotension. Hospitalists are following. Medications have been adjusted. Despite this, patient remains hypotensive and symptomatic with being vertical. Fluid bolus given. The patient is very cooperative with therapy when they're able to work with him. He wants to improve and wants to get back home if possible. He denies any chest pain. He denies shortness of breath. Similar reports lightheadedness and feelings of presyncope when he is vertical. He is able to eat and drink adequately. Questionable cognition has arisen. Daughter confirms that he tends to repeat questions and has done this for some time. We will involve speech therapy in this regard. Following team meeting, I contacted the hospitalist service. They're checking with the patient's tire classifier in [place] with regard to his hypotension. - Physical Therapy Comments: Physical therapy is working with patient when possible and when his blood pressure will allow it. He is making progress. However the hypotension limits progress significantly. He requires contact guard assistance for bed and wheelchair transfer. He requires maximal assistance for propulsion in a wheelchair. - Occupational Therapy Lower Body Dressing Comment: Patient requires at least moderate assistance for lower extremity dressing. Once again, orthostatic hypotension prevents significant improvement at this time. - Care Plan Anticipated Length of Stay: 7 Anticipated DC Destination: Home, Self Care Interventions/Goals: Barriers to progress with therapy: Orthostatic hypotension, cognition, endurance. Goals: Improvement in blood pressure control, ability to tolerate 45 minutes of therapy continuously at one time. Therapy is on hold at this time until blood pressure is improved. We will consult speech therapy for cognition evaluation.
[2017-04-08] MEDS: CEFTRIAXONE 2 GM in NS 100 ML IV SCH (16:19)
[2017-04-08] MEDS: CITALOPRAM 20 MG TABLET PO SCH (21:16)
[2017-04-08] MEDS: POLYETHYL GLYCOL 3350 17gm PACKET PO SCH (21:17)
[2017-04-08] MEDS: SIMVASTATIN 20 MG TABLET PO SCH (21:17)
[2017-04-09] MEDS ORDERED: NS FLUSH BAG 500ml IV PRN ×2 (06:21→08:49)
[2017-04-09] MEDS: MIDODRINE 10 MG TABLET PO SCH (06:35)
--- NOTE | 2017-04-09 07:22 | Pharmacy Consult ---
Pharmacy Consult-Warfarin - Laboratory Information 04/03/17 04/04/17 04/05/17 04:30 04:38 09:36 INR 1.53 H 2.83 H 3.04 H 04/06/17 04/07/17 04/08/17 09:34 04:18 04:47 INR 2.56 H 3.15 H 3.97 H 04/09/17 04:59 INR 5.03 H* - Consult Information INR is 5.03. Patient has blood in stool. No warfarin will be given today. Vitamin K ordered this morning. Thank you.
[2017-04-09 07:30] VITALS: RESP 20; O2SAT 98
[2017-04-09] MEDS ORDERED: PHYTONADIONE 1 MG/0.5 ML ORAL LIQUID PO ONE (08:00)
[2017-04-09 08:15] VITALS: BP 79/57; PULSE 87; TEMP 97.8
--- NOTE | 2017-04-09 10:17 | IRU Progress Note ---
- Subjective/Serverity of Illness Mr. Blackman continues to have hypotension. He has now developed worsening anemia at 6.1 and is receiving a blood transfusion. Surprisingly he denies lightheadedness. He also specifically denies any chest pain, shortness of breath etc. He is awake alert and oriented. He is not aware of her having had a colonoscopy. He thinks he may have had an ulcer in the past. He denies any abdominal pain. His INR is elevated at over 5 and he has received vitamin K. He is unable to participate with therapy at the present time. Hospitalists are planning to transfer the patient this morning. Exam Vital Signs: Temperature 97.8 F 04/09/17 08:14 Pulse Rate 87 04/09/17 08:14 Respiratory Rate 20 04/09/17 08:14 Blood Pressure 79/57 04/09/17 08:14 Pulse Oximetry 98 04/09/17 08:14 Height/Weight/BMI: Height 1.83 m Weight 81 kg Body Mass Index 24.2 Comments: The patient is awake, alert and oriented and in no acute distress. He does appear to be pale. Pupils are equal. The neck is supple. Chest: Clear to auscultation bilaterally. Cor: RR with no gallop, click nor murmur Abd: soft with normo-active bowel sounds. There are no masses, no tenderness and no guarding. Extremities: No edema is noted. Pulses are reduced. Results IRU - Labs Labs: Laboratory reviewed as well as vital signs etc. Sepsis Assessment - Evaluation Sepsis screening result: No Definite Risk IRU A/P (1) Debility Current visit: Yes Status: Chronic (2) Bacterial endocarditis Qualifiers: Chronicity: subacute Qualified Code(s): I33.0 - Acute and subacute infective endocarditis Current visit: Yes Status: Acute (3) History of mitral valve replacement with bioprosthetic valve Current visit: Yes Status: Acute (4) History of aortic valve replacement with bioprosthetic valve Current visit: Yes Status: Acute (5) Non-STEMI (non-ST elevated myocardial infarction) Current visit: Yes Status: Acute (6) Systolic heart failure Qualifiers: Heart failure chronicity: acute on chronic Qualified Code(s): I50.23 - Acute on chronic systolic (congestive) heart failure Current visit: Yes Status: Acute (7) Orthostatic hypotension Current visit: Yes Status: Acute Patient does have significant hypotension which has been resistant to fluid boluses etc. He has now developed worsening anemia apparently with blood loss via the GI tract. He is being transferred to the ICU. (8) Myopathy Current visit: Yes Status: Acute (9) Acute blood loss anemia Current visit: Yes Status: Acute Stools are reportedly Hemoccult positive. Hemoglobin down to 6.1. He is receiving a blood transfusion and plans to be transferred to the intensive care unit today. DVT Prophylaxis: Coumadin Resuscitation Status: Full Code - Course Hospital Course: Gene Harrell MD: 04/07/17 11:18 Continues to require a lot of encouragement. Working with PT and OT on transfers. Blood pressure around 90 which impacts his ability to place weight in therapy. Remains on Rocephin. 04/08/17 11:17 Orthostatic hypotension remains an issue. We will hold therapy until cleared by hospitalists. Medical workup in progress. Troponin negative/normal. Remains on Rocephin without evidence of recurrence of endocarditis. 04/09/17 10:17 Has developed worsening anemia with continued hypotension. Hospitalists are transferring him to the ICU. - Interventions to Obtain Goals PT Treatment Plan: Balance/Proprioception, Functional Activities, Gait Training , Patient/Family Education, Therapeutic Exercise OT Treatment Plan: ADL (Basic Care), Balance Training, IADL, Pt./Family Education, Ther. Exercise for ADL
--- NOTE | 2017-04-09 10:23 | Discharge Instructions ---
Discharge Plan - Med Rec/Dispo Prescriptions: Continue Ceftriaxone [Rocephin] 2 gm IV DAILY Simvastatin [Zocor] 20 mg PO HS Citalopram Hydrobromide [Celexa] 20 mg PO HS Acetaminophen Supp [Tylenol Supp] 650 mg RECTALLY Q4HR PRN MDD 6 supps/24 hours PRN Reason: Pain Metformin Xr [Glucophage Xr] 1,000 mg PO BID Polyethylene Glycol 3350 [Miralax] 17 gm PO HS Furosemide [Lasix] 1 tab PO DAILY Midodrine [Proamatine] 10 mg PO ,,17 Warfarin [Coumadin] 2 mg PO 1700 BuPROPion IR [Wellbutrin Ir] 75 mg PO BID Docusate Sodium [Colace] 1 cap PO BID GlyBURIDE [Micronase] 2.5 mg PO DAILY Potassium Chloride ER Tab [K-Dur] 1 tab PO DAILY Discharge Instructions/Outpatient Orders: Final Provider Discharge Instructions Location: Determined By Patient - Disposition 02 Acute Care Hosp, Other
--- NOTE | 2017-04-09 10:27 | Discharge Summary ---
Discharge Information Date of admission: 04/02/17 12:20 Anticipated date of discharge: 04/09/17 [place] [facility] [place] Attending Physician: Gene Harrell MD Primary care physician: Norah Pedroza MD Consults: 04/03/17 Pharmacy Consult [CONS] Routine Pharmacy Consult: Coumadin/Warfarin 04/03/17 07:45 Physician Consult [CONS] Routine Consulting Provider: Ana Leach Reason For Exam: med management Ordering Provider has Notified Overhead Cleaner: No 04/08/17 15:35 Physician Consult [CONS] Routine Consulting Provider: Gege Adame Reason For Exam: CHF; endocarditis; recent septic shock Ordering Provider has Notified Overhead Cleaner: Yes - Discharge Diagnosis Discharge Diagnosis: 71-year-old male with urinary retention 1. 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 recent sepsis 3. Critical illness myopathy 4. Hypotension 5. Acute blood loss anemia - Laboratory Labs: 04/09/17 04:59 04/09/17 04:59 History of Present Illness HPI: 04/09/17 10:24 Mr. Blackman was recently admitted to [facility] with sepsis secondary to streptococcus. He was found to have vegetations on both the mitral and aortic valves and both of these were replaced by Dr. Lopez. He was in the intensive care unit on mechanical ventilator for a time. He was extremely weak after all of this and was transferred to [facility] acute rehabilitation for intensive individualized therapy to return him to his prior level of functioning. Hospital Course This is a general summary of the patient's hospital course. For more details refer to the complete medical record. While on the inpatient rehabilitation unit, the patient did participate with physical therapy and occupational therapy. Speech therapy was also consulted but only recently just prior to dismissal. Unfortunately he experienced quite a bit of orthostatic hypotension with blood pressures in the 60s to 80s. This was symptomatic. Etiology was not totally clear. His frequent episodes of orthostatic hypotension precluded significant improvement with therapy although the patient was certainly willing to try. He was followed by the hospitalists and subsequent by cardiology. He was noted to have acute blood loss anemia with hemoglobin dropping to 6.1. He was given a transfusion of packed red blood cells. It was determined that it was not appropriate for him to be on the acute rehabilitation floor at this time and he was transferred to [facility] intensive care unit on 04/09/2017 for continued medical management of his multiple medical problems. Hospital course: 04/03/17-initial consult Impression General weakness and debility secondary to severe illness. 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 Continue on Midodrine 10 mg TID. This morning will given him a 500ml bolus of NS given significant orthostasis 62 systolic while sitting on the edge of the bed. Upon recheck by myself blood pressure was 91 systolic. Discussed with nursing staff will have to do position changes slowly with patient. He does become significantly symptomatic, complaining of lightheadedness 1. Blood pressure does decrease. Given recent aortic and mitral valve endocarditis he will require 8 weeks total of antibiotic therapy. It is recommended that he continue on IV Rocephin daily through 05/10/17. Will require chronic anticoagulation on warfarin, INR ordered for now. Will place pharmacy consult for Coumadin managing. [id number] score is >3 , indicating he has a high risk for CVA Will monitor blood sugars routinely. Patient was placed back on metformin and glyburide at time of discharge from [facility]. Will need to monitor renal function carefully given recent acute kidney injury. Asked nursing staff to do Pettit, bladder retraining. Hopeful to discontinue Pettit catheter in the next 1-2 days. Check daily CBC and BMP to follow blood counts, renal function and electrolytes. Encourage work with PT and OT for ongoing strengthening. It is patient's goal to return independently at home Will discuss further orders and plan of care with attending, Dr. Leach. At time of discharge medical care is returned to Dr. Edith Castro at [facility]. 04/04/17 In light on episodes of hypoglycemia, Will place glyburide on hold. Will continue with only metformin. May need to consider decreasing the dose to 500 twice a day if persistent hypoglycemia. Regarding orthostatic hypotension. We will change the timing of the dosing of midodrine to 7 a.m., 11 a.m., 3 p.m. Will plan to call historical guide that followed patient while at [facility], Dr. Tyler Goodman (With [facility] cardiology) Lasix remains on hold Dr Palomo (urologist) was consulted given retention with pettit overnight. He recommended started Flomax, However will not initiate this until orthostasis is better controlled. At this point will leave pettit cath in place. He is planning to see patient Friday in consultation Continue to follow routine labs. INR therapeutic 2.83. Lovenox subcutaneous daily for DVT prophylaxis Orders and plan of care discussed with attending, Dr. Leach 04/06/17 His blood sugars are trending up and he is eating better. Will resume his metformin 500 mg twice a day at this point (his home dose is 1000 mg twice a day ). Glyburide still on hold. His orthostasis is much better. Patient continues on midodrine. Lasix is still on hold. He is still on potassium supplement and his potassium has been running 4.2. Will hold potassium at this point as well. Patient previously had some retention with his Pettit. It had been suggested that he should start Flomax and Dr. Isabel was going to consult patient. Flomax had not been started at that time due to his orthostasis. He has not had any problems the past few days. At this point, will cancel the consult for Dr. Isabel and start bladder training 04/07/17 Discussed orthostasis with nursing staff - they will start giving Midodrine before rising in the morning. No evidence of fluid overload - continue to hold Lasix and monitor closely. Potassium is on hold. Anemia - hgb down to 9.0; pale in color. Stools documented as brown [not black] - repeat CBC in am. Dr. Isabel is planning on seeing Magdaleno today. Would be hesitant to start Flomax with ongoing orthostasis. Following discussion, added Uroxatral which has more favorable side effect profile compared to Flomax (less hypotension). Continue to monitor blood sugars - no hypoglycemia since restarting metformin. 04/08/17 Hgb down to 7.9 - on repeat it was 8.1. Type and screen ordered. Check stool for occult blood. Pt looks ill - pale, diaphoretic, weak. BP consistently low. Would expect a lower threshold for transfusion given recent endocarditis/valve replacements. Check EKG and trop d/t nausea and concerning symptoms. Check CXR - high risk for volume overload and decreased breath sounds. INR increased, nearly 4 - received 2 mg warfarin yesterday. Monitor closely for blood loss. BG under good control on lower dose Metformin Continue IV Rocephin through 05/10/17. WBC normal; afebrile; no other SIRS criteria. qSOFA positive for ongoing hypotension. Overall, concerning picture given acute anemia, supratherapeutic INR, nausea/ diaphoresis/fatigue - high risk for ACS. Discharge Plan - Med Rec/Dispo Prescriptions: Continue Ceftriaxone [Rocephin] 2 gm IV DAILY Simvastatin [Zocor] 20 mg PO HS Citalopram Hydrobromide [Celexa] 20 mg PO HS Acetaminophen Supp [Tylenol Supp] 650 mg RECTALLY Q4HR PRN MDD 6 supps/24 hours PRN Reason: Pain Metformin Xr [Glucophage Xr] 1,000 mg PO BID Polyethylene Glycol 3350 [Miralax] 17 gm PO HS Furosemide [Lasix] 1 tab PO DAILY Midodrine [Proamatine] 10 mg PO 09,,17 Warfarin [Coumadin] 2 mg PO 1700 BuPROPion IR [Wellbutrin Ir] 75 mg PO BID Docusate Sodium [Colace] 1 cap PO BID GlyBURIDE [Micronase] 2.5 mg PO DAILY Potassium Chloride ER Tab [K-Dur] 1 tab PO DAILY Discharge Instructions/Outpatient Orders: Final Provider Discharge Instructions Location: Determined By Patient
--- NOTE | 2017-04-09 10:37 | XRay Report ---
Indication: s/p heart surgery PROCEDURE: XR chest 1V: Encounter: Initial Comparison: April 08, 2017 Findings: Right PICC line remains in place. Left pacemaker. Poststernotomy changes and cardiac valve replacement. Improving aeration of the left lower lobe. No pneumothorax or focal consolidative pneumonia. Decreasing pleural fluid. Heart size and mediastinal contours are stable allowing for differences in rotation. Pulmonary vascularity appears normal. Impression: Decreasing pleural effusions and improvement in aeration of the left lower lobe. .
[2017-04-09] MEDS: BuPROPion IR 75 MG TABLET PO SCH (10:51)
[2017-04-09] MEDS: DOCUSATE SODIUM 100 MG CAPSULE PO SCH (10:51)
[2017-04-09] MEDS: METFORMIN 500 MG TABLET PO SCH (10:51)
--- NOTE | 2017-04-11 18:30 | Echocardiogram ---
DATE OF STUDY 04/08/2017 INDICATIONS Hypotension, bleed, coagulopathy. Patient is status post aortic and mitral valve replacement for endocarditis. Need to rule out pericardial effusion/ bleed. Intermittent atrial fibrillation. Male with coagulopathy. He also has a pacemaker in place. TECHNICAL QUALITY Technically difficult study due to very poor acoustic windows. FINDINGS 1. CARDIAC CHAMBERS: Cardiac chambers appear grossly normal in size. Aortic root diameter is normal. Left atrium measured 2.6 cm. 2. LEFT VENTRICLE: Wall thickness borderline increased 11 mm in the septal wall and 12 mm in the posterior wall. Borderline LVH. Wall motion abnormality is present. Left ventricular systolic dysfunction is present. Accurate ejection fraction cannot be given. It was measured 42% and might be a little worse than that, perhaps closer to 35%. Diastolic function assessment was not possible. 3. VALVES: Aortic valve is not well seen. Mitral valve appears echogenic with an echogenic and bright annulus. The leaflets themselves are , not clearly visualized. No obvious abnormality such as a clot or vegetation is seen. This may be much better examined with a ELDON. Limited view of the aortic valve does not suggest abnormality. Again, it is not well seen. Pacemaker leads are seen in the right heart and are unremarkable. 4. DOPPLER: Trace mitral insufficiency, trace tricuspid insufficiency. Peak systolic PA pressure is estimated at 18 mmHg. Additional Doppler findings do not suggest the presence of significant aortic or mitral valve dysfunction. Only trace mitral regurgitation is seen. Peak inflow velocity at the mitral valve is 1.28 m/sec. Aortic valve 1.66 m/sec. Mean gradient 8 mmHg. These values are considered within normal limits for a poor cardiac output. Mitral valve opening is not well seen on 2D echo. Mitral valve opening may be better examined with a ELDON. No evidence of intracardiac masses, thrombi or definite vegetations. No pericardial effusion. IMPRESSION 1. Technically very difficult study. 2. LV systolic dysfunction, moderate, based on limited visualization. Estimated ejection fraction is about 35%. 3. Prosthesis in the mitral position is not well seen. Adequate opening cannot be verified. Doppler okay. This may be better examined with a ELDON after coagulopathy and GI bleed are stopped especially if there is continued concern for hypotension. He may need an EGD first however. This decision should be made based on her clinical ground. 4. Tissue prosthesis in the aortic position is not well seen. Doppler suggest normal function. 5. Reduced flow velocity at the levels of the valves indicates poor cardiac output. 6. No evidence of pericardial effusion. 7. Borderline LVH. 8. Normal RV size and contractility. RECOMMENDATION Consider transesophageal echocardiogram ideally after an EGD and coagulopathy is corrected and medically stabilized in this patient with GI bleed and severe anemia. May not be stable for ELDON yet. Of course, clinical correlation is always useful. MTDD
== END 2017-04-09 11:00 | disposition short-term general hospital (02) | DRG 91 ==
PROVIDERS: ADMIT Orthopaedic Surgery; ATTEND Orthopaedic Surgery

== ENCOUNTER 2017-04-09 10:36 | Inpatient (IN) ==
--- OUTSIDE RECORDS SUMMARY | 2017-04-09 11:34 | External Medical Summary ---
:1945 Author Organization [facility]. Summary purpose CCDA Sent to [facility] Chief Complaint and Reason for Visit Admit Diagnosis 1 CHEST PAIN Problem list Condition Status Certainty Chronicity Onset .Chest pain Discharged Encounters The following conditions tracked for encounter diagnoses were recorded for this visit: Finding or Diagnosis Status Certainty Chronicity Onset .Chest pain Discharged Cardiovascular - Actual/potential for Discharged altered Medications Discharge Medications Status Medication Directions Current citalopram 20 mg tablet 20 miligram(s) oral AFTER SUPPER Current Flomax 0.4 mg capsule 0.4 miligram(s) oral DAILY Current losartan 100 mg tablet 100 miligram(s) oral DAILY Current meTOPROLOL tartrate 25 mg tablet 25 miligram(s) oral BID Current Prilosec 20 mg capsule,delayed release 20 miligram(s) oral BID brealfast and bedtime Allergies, adverse reactions, alerts Allergen Category Ingredient Status Reaction Severity Onset No Known Drug No Known Drug No Known Drug Active Allergy Allergy Allergy Immunizations No immunizations recorded for this patient visit Relevant diagnostic tests and/or laboratory data RESULTS 70-00-080101:05:00 Discharge Summary Patient's chest pain resolved and he is discharged to home. Urine sent for culture, one dose of Rocephin given. 92-67-915954:25:56 Discharge Summary home CBC 31-33-845310:25:00 Result Normal Range Units WBC L 5.54 5.8-10.8 x103/mm3 Neutrophil % 57.2 50-70 % Lymph % 33.8 20-50 % Camas % 7.8 1.0-9.0 % Eosinophil % 0.7 0-4 % Basophil % 0.5 0-2 % Neutrophil # 3.17 3.0-7.0 x103/mm3 Lymph # 1.87 1.0-4.0 x103/mm3 Camas # 0.43 0.0-0.8 x103/mm3 Eosinophil # 0.04 0-0.5 x103/mm3 Basophil # 0.03 0-0.2 x103/mm3 RBC L 4.05 4.60-6.20 x103/mm3 HGB L 13.9 14.0-18.0 g/dl HCT L 38.9 42.0-52.0 % MCV H 96.0 80-94 FL MCH H 34.3 27.0-31.0 pg MCHC 35.7 32.0-36.0 g/dl RDW 12.9 12-15 % Platelet L 139 150-400 x103/mm3 MPV 10.0 6.0-10.0 FL :40:00 Result Normal Range Units WBC 7.69 5.8-10.8 x103/mm3 Neutrophil % 66.7 50-70 % Lymph % 25.6 20-50 % Camas % 7.3 1.0-9.0 % Eosinophil % 0.1 0-4 % Basophil % 0.3 0-2 % Neutrophil # 5.13 3.0-7.0 x103/mm3 Lymph # 1.97 1.0-4.0 x103/mm3 Camas # 0.56 0.0-0.8 x103/mm3 Eosinophil # 0.01 0-0.5 x103/mm3 Basophil # 0.02 0-0.2 x103/mm3 RBC L 4.15 4.60-6.20 x103/mm3 HGB 14.3 14.0-18.0 g/dl HCT L 40.1 42.0-52.0 % MCV H 96.6 80-94 FL MCH H 34.5 27.0-31.0 pg MCHC 35.7 32.0-36.0 g/dl RDW 13.0 12-15 % Platelet 162 150-400 x103/mm3 MPV 9.6 6.0-10.0 FL Urinalysis 23-23-183318:35:00 Result Normal Range Units Site VOID Color Yellow Urine Appearance Cloudy Specific [place] 1.020 1.005-1.030 pH 5.5 5.0-9.0 Protein Negative Negative Glucose AB Trace Negative Ketones Negative Negative Bilirubin Negative Negative Blood Negative Negative Nitrite Negative Negative Urobilinogen 0.2 0.20 mg/dl Leukocyte AB 2+ Negative Urine Bacteria 3+ Urine Comments SPECIMEN IS BEING SENT TO REF LAB FOR CULTURE.09/24/16LLH Urine WBC N51-100 Chemistry Group [id number]:40:00 Result Normal Range Units Sodium 140 134-145 mmol/L Potassium 4.5 3.6-5.0 mmol/L Chloride 105 98-107 mmol/L CO2 L* 18 22-30 mmol/L Glucose H 232 75-110 mg/dl BUN 18 9-20 mg/dl Creatinine 1.27 0.8-1.7 mg/dl eGFR 56 ml/min. Total Protein 7.0 6.3-8.2 g/dl Albumin 4.0 3.5-5.0 g/dl Calcium 8.6 8.4-10.2 mg/dl Alk Phos 66 38-126 U/L AST H 58 14-36 U/L ALT 63 11-66 U/L T Bili .9 0.2-1.3 mg/dl A/G Ratio 1.4 Ratio Special Chemistry Group [id number]:25:00 Result Normal Range Units Troponin I < 0.06 ng/ml NEGATIVE - 0.06-0.30 ng/ml INCONCLUSIVE - 0.31-0.64 ng/ml; Suggest Repeating in 2-4 hours POSITIVE - >0.64 ng/ml; Probable AMI [id number]:05:00 Result Normal Range Units Troponin I < 0.06 ng/ml NEGATIVE - 0.06-0.30 ng/ml INCONCLUSIVE - 0.31-0.64 ng/ml; Suggest Repeating in 2-4 hours POSITIVE - >0.64 ng/ml; Probable AMI [id number]:40:00 Result Normal Range Units Troponin I < 0.06 ng/ml NEGATIVE - 0.06-0.30 ng/ml INCONCLUSIVE - 0.31-0.64 ng/ml; Suggest Repeating in 2-4 hours POSITIVE - >0.64 ng/ml; Probable AMI Reference Lab Group [id number]:35:00 Result Normal Range Units Culture Urine See Comment Result Amended on 2016-09-26 at 09:59:43. Previous status was FR. Comment deleted 09/26/2016 09:57 by AMS : .Site: Received : 09/24/16 11:05 .Order#: [id number] Urine Culture PRELIM 09/25/16 13:41 S .No growth .S: Performed at:[place], [place] CLIA#[id number] CLEMENTE FOR RESULTS: * - NEW RESULT - RESULT WAS MODIFIED AFTER FINAL STATUS SET Urine Culture performed at [facility] Reference Lab, [address] [place] [id number] Division Operations Manager Martha Locke DO .Site: Received : 09/24/16 11:05 .Order#: [id number] Urine Culture FINAL 09/26/16 09:55 S .Normal urogenital/skin bhavna present .S: Performed at:[place], [place] CLIA#[id number] CLEMENTE FOR RESULTS: * - NEW RESULT - RESULT WAS MODIFIED AFTER FINAL STATUS SET Urine Culture performed at [facility] Reference Lab, [address] [place], [place] [address] Division Operations Manager Martha Locke DO Test Culture Urine with result ofSee Comment was originally reported as See Comment and was changed on 09/26/2016 09:57 by [facility] Urinalysis with Microscopic [id number]:35:00 Result Normal Range Units Site VOID Color Yellow Urine Appearance Cloudy Specific [place] 1.020 1.005-1.030 pH 5.5 5.0-9.0 Protein Negative Negative Glucose AB Trace Negative Ketones Negative Negative Bilirubin Negative Negative Blood Negative Negative Nitrite Negative Negative Urobilinogen 0.2 0.20 mg/dl Leukocyte AB 2+ Negative Urine Bacteria 3+ Urine Comments SPECIMEN IS BEING SENT TO REF LAB FOR CULTURE.09/24/16LLH Urine WBC N51-100 History of procedures Procedure Code Code Type Description Date Performed Performing Physician 95892 CPT-4 EMERGENCY DEPT VISIT 09-23-2016 STEPHAN FAST 96017 CPT-4 ELECTROCARDIOGRAM, 09-23-2016 STEPHAN FAST TRACING 71396 CPT-4 COMPLETE CBC, 09-23-2016 STEPHAN FAST AUTOMATED 48166 CPT-4 COMPREHEN METABOLIC 09-23-2016 STEPHAN FAST PANEL 08472 CPT-4 ASSAY OF TROPONIN, 09-23-2016 STEPHAN FAST QUANT 09130 CPT-4 CHEST X-RAY 09-23-2016 STEPHAN FAST J0696 CPT-4 CEFTRIAXONE SODIUM 09-24-2016 STEPHAN FAST INJECTION 34907 CPT-4 URINALYSIS, AUTO, W/O 09-24-2016 STEPHAN FAST SCOPE 82357 CPT-4 ASSAY OF TROPONIN, 09-24-2016 STEPHAN FAST QUANT 20550 CPT-4 ELECTROCARDIOGRAM, 09-24-2016 STEPHAN FAST TRACING 60172 CPT-4 URINE CULTURE/COLONY 09-24-2016 STEPHAN FAST COUNT 76022 CPT-4 COMPLETE CBC, 09-24-2016 STEPHAN FAST AUTOMATED 63869 CPT-4 ASSAY OF TROPONIN, 09-24-2016 STEPHAN FAST QUANT 33114 CPT-4 ELECTROCARDIOGRAM, 09-24-2016 STEPHAN FAST TRACING G0378 CPT-4 HOSPITAL OBSERVATION PER 09-23-2016 [place] [address] CPT-4 THER/PROPH/DIAG INJ, IV 09-24-2016 STEPHAN FAST PUSH Functional status Functional Status Finding Observation Time Weight Bearing Statu Full 24-86-952559:31 Transferring/Ambulat Independent 21-21-170161:31 Bathing Independent 68-96-711084:31 Dressing Independent 23-67-811368:31 Eating Independent 39-04-307862:31 Drinking Independent 07-10-730892:31 Toileting Independent 07-48-645045:31 Able to Turn Self in Independent 92-55-380138:31 Cognitive Status Finding Observation Time Level of Consciousne Alert 42-07-691638:59 Oriented to Person Yes 22-80-534522:[address] Yes 88-44-463922:59 Oriented to Time Yes 27-31-568216:59 Vital signs Type Value Date Respirations 16 15-00-473246:55 Pulse 80 :55 O2 Saturation 95% :55 Systolic Blood Press 140mm/HG 56-22-056921:55 Diastolic Blood Pres 84mm/HG 45-79-924560:55 Temperature (Fahr) 97.8Degrees 53-62-470749:55 Height 71in :23 Weight 201.8LB 08-36-563127:23 Social history Type Value Smoking Status NEVER SMOKER Treatment Plan Treatment Plan at Patient will be notified or Friday if additional antibiotic is needed. He is to call or return for any return, increased, or new symptoms. Hospital discharge instructions Diagnosis Chest Pain Diet No restrictions Activity Level No restrictions Follow up with Dr. TORIBIO Appointment Date and 7-10 days Comment: Patient will make appointment at [facility]. Other Instructions Dr. Vin Pedroza's nurse will call if additional antibiotic is needed on or Friday.
--- OUTSIDE RECORDS SUMMARY | 2017-04-09 11:34 | External Medical Summary ---
:1945 Author Organization [employer] Care Team Providers Name Role Phone Santi Valdez Provider Role Unavailable Allergies No Known Allergies Problems Problem Type Condition Code Onset Dates Condition Status Problem Hypertension I10 Active Problem Dyslipidemia E78.5 Active Problem Diabetes mellitus type II, E11.9 Active controlled Problem Unspecified iron deficiency anemia 280.9 Active Problem Derrick-Tachy Syndrome 427.81 Active Problem Restless legs syndrome [RLS] 333.94 Active Medications No Known Medications Results No Known Results Summary Purpose [employer]ClinicalWorks Submission
--- OUTSIDE RECORDS SUMMARY | 2017-04-09 11:34 | External Medical Summary ---
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
--- OUTSIDE RECORDS SUMMARY | 2017-04-09 11:34 | External Medical Summary ---
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
--- OUTSIDE RECORDS SUMMARY | 2017-04-09 11:34 | External Medical Summary ---
:1945 Author Organization [employer] Care Team Providers Name Role Phone Snati Valdez Provider Role Unavailable Allergies No Known [...]
--- OUTSIDE RECORDS SUMMARY | 2017-04-09 11:34 | External Medical Summary ---
[...] 401.9 Active Problem Dyslipidemia 272.4 Active Medications Medication Code System Code Instructions Start Date End Date Status Dosage Metoprolol [facility] 50992-997 25 MG Orally Apr 3008/12 tab Tartrate 8-01 Twice a day 2015 Results No Known Results Summary Purpose [employer]ClinicalWorks Submission
[2017-04-09 11:46] VITALS: BMI 24.0
[2017-04-09] MEDS ORDERED: ONDANSETRON 4 MG/2 ML INJECTION IVP PRN (12:35)
[2017-04-09] MEDS ORDERED: ACETAMINOPHEN 650 MG SUPPOSITORY PR PRN (12:50)
[2017-04-09] MEDS ORDERED: PANTOPRAZOLE 40 MG INJECTION IVP SCH (13:00)
--- NOTE | 2017-04-09 13:27 | History & Physical Report ---
<Julia Butler - Last Filed: 04/09/17 14:20> History of Present Illness Date: 04/09/17 Chief complaint: GI bleed, hypotension HPI: Magdaleno Blackman is a pleasant 71-year-old male with a very complex recent medical history. He was admitted to [facility] on March 11, 2017 with shortness of breath and weakness. At that time, he was found to have infectious endocarditis and septic shock secondary to streptococcus bacteremia. An echocardiogram revealed vegetation on the aortic and mitral valves, and he was diagnosed with a non-STEMI. On 03/14/17, he underwent an aortic and mitral valve replacement under the care of Dr. Dami Mccoy. Post-operatively he did have respiratory failure and was placed on the ventilator. This was managed by manufacturing supervisor, Dr. Nunes. Over the course of the next 2 weeks, he continued to improve. He continued to have orthostasis and was placed on Midodrine following a syncopal episode on 03/29. His other chronic diseases, including hypertension, type II diabetes, hypercholesterolemia, GERD and atrial fibrillation, were managed and stabilized. Hemoglobin A1c while at [place] was 6.5. Due to the severity of his illness and the extended time of his hospitalization, he developed significant generalized weakness. Prior to this illness, he resided independently at home. Because of this debility, he was accepted to [facility] rehabilitation unit for ongoing rehabilitation and strengthening on 04/03. Following his admission to IRU on 04/03 , he experienced an episode of hypoglycemia. Since that time, his glyburide has been on hold and his home dose of metformin was decreased from 1000mg BID to 500mg BID, which he has tolerated well without further incidence of hypoglycemia. His blood sugars remained well controlled. He has also had persistent orthostatic hypotension, despite his MANNY and beta-cassi being on hold, resulting in his inability to participate fully in therapy. His Lasix and KCl, initiated at [place] due to his CHF and concerns of fluid overload, have also been on hold. Following his admission to IRU, close monitoring of labs revealed anemia with progressive down trending of his hemoglobin. Due to his recent aortic and mitral valve replacements with tissue valves, he has been on Coumadin which is recommended for 30 days following tissue valve replacement as well as bridge therapy with Lovenox for DVT prophylaxis. His [id number] score is >3 indicating a high risk for CVA. Dr. Adame was consulted for cardiology expertise. It is also recommended that he receive a total of 8 weeks of antibiotic therapy following his valve replacement. He remains on Rocephin 2g daily to be complete on 05/10/17. Following his admission, he experienced urinary retention and a Guzmán catheter was placed per the recommendation of Dr. Palomo, which remains in place. An alpha-cassi was also recommended, but was not initiated in light of his orthostasis. Today, Magdaleno was initially seen in IRU first thing this morning. He reported that he felt very weak and tired. Review of vital signs revealed persistent hypotension with blood pressure at 71/50. He has remained afebrile and heart rate is stable. He denies any other complaints including no chest pain, shortness of breath, abdominal pain, nausea or vomiting. He does continue to have significant orthostasis with positional changes. He states that his appetite is fair and admits to a large bowel movement last night. He denies any blood in his stools or dark-tarry stools, though the nurse reports that the night worker nurse noted a strong odor concerning for melena. Fecal Hemoccult was positive yesterday. Review of labs reveals his hemoglobin has dropped to 6.1, down from 8.1 yesterday. WBC is stable at 6.0 and platelets at 204. BMP revealed acute increase in his BUN at 45, concerning for acute blood loss. Scr stable at 1.1. INR was also noted to be supratherapeutic at 5.03. He was given Vit. K 2mg prior to exam and was preparing to receive PRBC x 1 unit during the exam. He denies a history of gastric ulcers but does admit to a history of GERD. He believes that he has had a colonoscopy in the past but is unsure of when or by whom and states that he does not remember every having any form of GI bleed, history of diverticulosis, diverticulitis. He does admit to a history of hemorrhoids. Echocardiogram was obtained on 04/07 with results pending. CXR today showed decreasing pleural effusion with improvement in aeration of the left lower lobe. On exam, he is resting in bed and arouses easily to soft voice stimuli. He is alert and orientated x 3 and appears tired and pale. Mucous membranes are dry. Cardiac exam reveals regular rate and rhythm with 2/6 murmur noted. Lungs are clear bilaterally without signs of respiratory distress. Abdomen is soft, nontender with active bowel sounds. Guzmán catheter is in place and actively draining yellow urine. No edema noted to lower extremities. Patient is seen in conjunction with Dr. Adame. Due to his severe, symptomatic anemia with acute GI bleed, hypotension and anticoagulation and recent sepsis, Mr. Blackman was admitted to ICU for further evaluation. He will require close cardiac and respiratory monitoring in light of his hemodynamic instability. He was followed by the following specialists while at [facility]- (03/11/17- 04/02/17) Dr. Cayetano Bautista (infectious disease) streptococcus bacteremia- continue on IV Rocephin through 05/10/17. Dr Robbin Marcus (oil winterizer ) regarding acute kidney injury on top of chronic kidney disease Dr Canelo Nunes (Termite Technician) managed acute respiratory failure and ventilation Review of Systems - Constitutional Constitutional: Present: fatigue, weakness (generalized). Absent: fever(s), increased appetite - EENMT Eyes: Absent: change in vision, photophobia Nose: Absent: nosebleeds Mouth/Throat: Present: dry mouth - Cardiovascular Cardiovascular: Present: as per HPI. Absent: chest pain, palpitations, edema Rhythm: Present: regular rhythm Vascular: Absent: pedal edema - Respiratory Respiratory: Absent: cough, dyspnea, hemoptysis, pain on inspiration - Gastrointestinal Gastrointestinal: Present: melena (questionable per nursing notes). Absent: abdominal pain, hematemesis, nausea, vomiting - Genitourinary Genitourinary: Present: other (Guzmán catheter in place secondary to previous retention). Absent: hematuria - Musculoskeletal Musculoskeletal: Present: muscle weakness (generalized). Absent: deformity - Integumentary/Breasts Integumentary: Absent: pruritus, jaundice - Neurological Neurological: Present: weakness (generalized). Absent: focal weakness - Psychiatric Psychiatric: Present: depression - Hematologic/Lymphatic Hematologic/Lymphatic: Absent: easy bleeding - Allergic/Immunologic Allergic/Immunologic: Absent: tongue swelling PFS Patient Stated Medical History Syncope Yes Angina Yes Cardiac Arrhythmia Yes Hypertension Yes Hypotension Yes Myocardial Infarction Yes Valvular Heart Disease Yes Diabetes Mellitus Type 2 Yes Gastroesophageal Reflux Yes Disease Hx Benign Prostatic Yes Hyperplasia Hx Incontinence No Other Yes: kidney infection hx of Sepsis Yes Depression Yes Surgical History: Pacemaker. 03/14/17- Bioprosthetic aortic valve replacement and mitral valve replacement Family History: Family history positive for cancer and melanoma. - Social History Smoking status: Never smoker Substance use type: does not use Alcohol intake frequency: does not drink Current occupation: tow truck operator Current residence: Apartment/Private Home Social history: PCP - Edith Castro Medications Home Medications Medication Instructions Recorded Confirmed Type Acetaminophen Supp [Tylenol Supp] 650 mg RECTALLY Q4HR PRN MDD 6 04/02/17 History supps/24 hours BuPROPion IR [Wellbutrin Ir] 75 mg PO BID 04/02/17 04/02/17 History Ceftriaxone [Rocephin] 2 gm IV DAILY 04/02/17 04/02/17 History Citalopram Hydrobromide [Celexa] 20 mg PO HS 04/02/17 04/02/17 History Docusate Sodium [Colace] 1 cap PO BID 04/02/17 04/02/17 History Furosemide [Lasix] 1 tab PO DAILY 04/02/17 04/02/17 History GlyBURIDE [Micronase] 2.5 mg PO DAILY 04/02/17 04/02/17 History Metformin Xr [Glucophage Xr] 1,000 mg PO BID 04/02/17 04/02/17 History Midodrine [Proamatine] 10 mg PO ,,04/02/17 04/02/17 History Polyethylene Glycol 3350 [Miralax] 17 gm PO HS 04/02/17 04/02/17 History Potassium Chloride ER Tab [K-Dur] 1 tab PO DAILY 04/02/17 04/02/17 History Simvastatin [Zocor] 20 mg PO HS 04/02/17 04/02/17 History Warfarin [Coumadin] 2 mg PO 1700 04/02/17 04/02/17 History Allergies Allergy/AdvReac Type Severity Reaction Status Date / Time No Known Allergies Allergy Verified 04/02/17 13:14 Exam Vital Signs: Temperature 97.8 F 04/09/17 11:32 Pulse Rate 71 04/09/17 11:32 Respiratory Rate 18 04/09/17 11:32 Blood Pressure 92/64 04/09/17 11:32 Pulse Oximetry 98 04/09/17 11:32 Height/Weight/BMI: Height 5 ft 11 in Weight 172 lb 2.896 oz Body Mass Index 24.0 Comments: telemetry revealed paced sinus rhythm with rate 81. - Constitutional Present: no acute distress, well nourished, well developed, cooperative - Routine HEENT Exam Head: Present: normocephalic, atraumatic Eye: Present: EOMI. Absent: conjunctival icterus ENT: Present: mucous membranes dry - Routine Neck Exam Present: supple, full ROM, trachea midline - Routine Chest/Breast/Axilla Exam Chest wall: Present: pacemaker. Absent: tenderness - Routine Respiratory Exam Present: CTA bilaterally. Absent: accessory muscle use, rhonchi, stridor, wheezes, crackles - Routine Cardiovascular Exam Present: RRR, S1, S2, murmur - Routine Abdominal Exam Present: soft, normoactive bowel sounds, non distended, non tender. Absent: rebound, guarding, firm, rigid - Routine Rectal Exam Comments: deferred. Prior fecal Hemoccult was positive on 04/07/17. - Routine Exam Comments: Guzmán catheter present and actively draining yellow urine. - Routine Extremities Exam Present: no edema, pulses intact. Absent: cyanosis, clubbing - Routine Back/Spine/Pelvis Exam Back/Spine: Present: full ROM - Routine Skin Exam Present: intact, dry, pallor, warm. Absent: erythema, jaundice - Routine Neurological Exam Present: alert, oriented X3, moving all extremities, normal speech. Absent: facial asymmetry - Routine Psychiatric Exam Present: normal affect, cooperative Results - Labs CBC & Chem 7: 04/09/17 13:48 Assessment and Plan DVT Prophylaxis: SCD's GI Prophylaxis: Protonix Resuscitation Status: Full Code Assessment and Plan: 04/09/17: [place]. Assessment/Plan: GI Bleed, acute. * Mr. Blackman was transferred from IRU to ICU in light of hemodynamic deterioration for closer respiratory and cardiac monitoring and continued care. * + fecal hemoccult on 04/08. Hemoglobin trending down at 6.1 this AM. Patient given 1 unit PRBC with improvement of hemoglobin to 6.6. Will given additional 1 unit PRBC and recheck H&H. Continue to monitor blood counts closely and monitor closely for signs of bleeding. * Dr. Denis was consulted for evaluation of possible endoscopy once stabilized. Appreciate his time and expertise. Clear liquid diet in light of acute bleed. * Initiate NS 100cc/hr for fluid resuscitation and monitor closely for signs of fluid overload and respiratory symptoms. CXR on 04/09 revealed decreased pleural effusion and improvement in aeration of left lower lung. Encourage incentive spirometry. * Initiate Protonix 40mg IV BID for GI protection and GERD. * Acute elevation in BUN to 45 most likely secondary to blood loss with SCr stable at 1.1. Recheck BMP in AM to monitor electrolytes and renal function. Monitor urinary output closely in light of recent acute kidney injury while hospitalized at [place]. 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 * Patient seen and evaluated by Dr. Adame while in IRU. Appreciate his time and expertise. Echocardiogram obtained on 04/08 with results pending to ensure hemoglobin decrease was not related to bleeding from recent surgery in chest. * Patient remains on Rocephin 2g IV for antimicrobial coverage following valve replacement. Treatment to be continued a total duration of 8 weeks and to be complete on 05/10/17. Monitor closely on telemetry Orthostatic hypotension, acute. * Monitor blood pressure closely. Blood pressure initially 77/56 prior to transfer from IRU. Following 1 unit PRBC, blood pressure improved to 92/64. Continue to hold home blood pressure medications. Continue to give midodrine TID. History of hypertension, chronic. * Hold home medications in light of hypotension including beta-cassi, MANNY, lasix. Type II Diabetes, chronic. * Blood sugars well controlled in IRU following decrease of home metformin to 500mg BID. Continue to hold glyburide in light of decreased oral intake and prior episodes of hypoglycemia. Monitor closely for hypoglycemia. Atrial fibrillation with pacemaker, chronic. * Monitor closely on telemetry. Anticoagulation currently on hold in light of acute GI bleed. SCDs for DVT prophylaxis. Chronic anticoagulation. * Coumadin recommended for 30 days following tissue valve replacement. INR this AM was 5.03. Patient was given 2mg Vit. K and 1 unit PRBC. INR decreased to 3.08. Will give an additional 2mg Vit. K and an additional 1 unit PRBC now and repeat H&H and INR following transfusion. Monitor closely for signs of bleeding. GERD, chronic. * Initiate Protonix 40mg IV BID for acute GI bleed and GI protection. Anxiety, chronic. * Continue home Wellbutrin. Urinary retention, acute. * Maintain Guzmán catheter. Dr. Palomo was previously consulted regarding his retention and recommended alpha-cassi which was held in light of hypotension. Consider bladder retraining in near future once hemoglobin and GI bleed are stabilized. Upon discharge, patient's care will be returned to his PCP. - Time spent with patient greater than 35 minutes Sepsis Assessment - Evaluation Sepsis screening result: No Definite Risk Possible source: pulmonary, endocarditis, GI tract/intra-abdominal Confirmed Suspected Infection: No SIRS Criteria: RR > or equal to 20 Severe Sepsis: SBP < 90 - Bedside Monitoring Fluid Bolus: fluid responsive Hospital Course Summary Disclaimer: The visit summary below is not to be considered part of the above Progress Note. Hospital Course: 04/09/17 15:02 Assessment/Plan: GI Bleed, acute. * Mr. Blackman was transferred from IRU to ICU in light of hemodynamic deterioration for closer respiratory and cardiac monitoring and continued care. * + fecal hemoccult on 04/08. Hemoglobin trending down at 6.1 this AM. Patient given 1 unit PRBC with improvement of hemoglobin to 6.6. Will given additional 1 unit PRBC and recheck H&H. Continue to monitor blood counts closely and monitor closely for signs of bleeding. * Dr. Denis was consulted for evaluation of possible endoscopy once stabilized. Appreciate his time and expertise. Clear liquid diet in light of acute bleed. * Initiate NS 100cc/hr for fluid resuscitation and monitor closely for signs of fluid overload and respiratory symptoms. CXR on 04/09 revealed decreased pleural effusion and improvement in aeration of left lower lung. Encourage incentive spirometry. * Initiate Protonix 40mg IV BID for GI protection and GERD. * Acute elevation in BUN to 45 most likely secondary to blood loss with SCr stable at 1.1. Recheck BMP in AM to monitor electrolytes and renal function. Monitor urinary output closely in light of recent acute kidney injury while hospitalized at [place]. 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 * Patient seen and evaluated by Dr. Adame while in IRU. Appreciate his time and expertise. Echocardiogram obtained on 04/08 with results pending to ensure hemoglobin decrease was not related to bleeding from recent surgery in chest. * Patient remains on Rocephin 2g IV for antimicrobial coverage following valve replacement. Treatment to be continued a total duration of 8 weeks and to be complete on 05/10/17. Monitor closely on telemetry Orthostatic hypotension, acute. * Monitor blood pressure closely. Blood pressure initially 77/56 prior to transfer from IRU. Following 1 unit PRBC, blood pressure improved to 92/64. Continue to hold home blood pressure medications. Continue to give midodrine TID. History of hypertension, chronic. * Hold home medications in light of hypotension including beta-cassi, MANNY, lasix. Type II Diabetes, chronic. * Blood sugars well controlled in IRU following decrease of home metformin to 500mg BID. Continue to hold glyburide in light of decreased oral intake and prior episodes of hypoglycemia. Monitor closely for hypoglycemia. Atrial fibrillation with pacemaker, chronic. * Monitor closely on telemetry. Anticoagulation currently on hold in light of acute GI bleed. SCDs for DVT prophylaxis. Chronic anticoagulation. * Coumadin recommended for 30 days following tissue valve replacement. INR this AM was 5.03. Patient was given 2mg Vit. K and 1 unit PRBC. INR decreased to 3.08. Will give an additional 2mg Vit. K and an additional 1 unit PRBC now and repeat H&H and INR following transfusion. Monitor closely for signs of bleeding. GERD, chronic. * Initiate Protonix 40mg IV BID for acute GI bleed and GI protection. Anxiety, chronic. * Continue home Wellbutrin. Urinary retention, acute. * Maintain Guzmán catheter. Dr. Palomo was previously consulted regarding his retention and recommended alpha-cassi which was held in light of hypotension. Consider bladder retraining in near future once hemoglobin and GI bleed are stabilized. Upon discharge, patient's care will be returned to his PCP. <Luke Crowley - Last Filed: 04/09/17 16:14> History of Present Illness Date: 04/09/17 [facility] Patient Stated Medical History Syncope Yes Angina Yes Cardiac Arrhythmia Yes Hypertension Yes Hypotension Yes Myocardial Infarction Yes Valvular Heart Disease Yes Diabetes Mellitus Type 2 Yes Gastroesophageal Reflux Yes Disease Hx Benign Prostatic Yes Hyperplasia Hx Incontinence No Other Yes: kidney infection hx of Sepsis Yes Depression Yes Exam Vital Signs: Temperature 97.8 F 04/09/17 11:32 Pulse Rate 71 04/09/17 11:32 Respiratory Rate 18 04/09/17 11:32 Blood Pressure 92/64 04/09/17 11:32 Pulse Oximetry 98 04/09/17 11:32 Height/Weight/BMI: Height 1.8 m Weight 78.1 kg Body Mass Index 24.0 Results - Labs CBC & Chem 7: 04/09/17 13:48 Assessment and Plan Assessment and Plan: Assessment/Plan: GI Bleed, acute Anemia secondary to acute GI blood loss S/P aortic and mitral valve replacement (bioprosthetic valves) secondary to aortic & mitral endocarditis with septic shock 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 Chart reviewed. Case discussed with CCU nursing, family, and my PA. Above care plan developed with my supervision; agree with above. 71 y/o WM admitted to IRU on 04/02 for restorative therapy following extensive hospitalization. Anticoagulated with Coumadin due to afib. Bioprosthetic valves placed during hospitalization secondary to endocarditis. Gains with therapy slowed due to significant orthostatic hypotension. Hemoglobin gradually trended downwards from 10.0 at admission to 6.1 this am. With decreased hemoglobin-BP also decreased. Stool positive for occult blood. INR elevated at 5.03 this am ( 3.92 yesterday). Due to significant decline in hemoglobin and concern for acute GI bleed in patient anticoagulated, urgently transfer to CCU for supportive care. Denies chest pressure or pain. Not feeling more SOA or congested - tolerated 1 unit of pRBC without respiratory problems. No nausea or ab pain. Does feel very weak and unsteady with positional changes. Needing Guzmán cath secondary to urinary retention - medications for BPH attempted on IRU but patient not able to tolerate these secondary to low BP and orthostasis. Lungs: Decreased, no crackles or wheezes CV: Irregular, tachy AB: soft flat nt/nd BS decreased MSE: awake alert appropriate Gen: converses well, appears tired and weak. Plan: Inpatient admission to CCU for treatment of his symptomatic anemia and suspected acute GI blood loss; anticipate greater than 2 midnights of care needed. Transfuse to help improve hemoglobin. Coumadin stopped - Vit K given. May need FFP to revers INR. IV Protonix BID for GI protection. Sx consult for potential EGD. IVF for volume support, monitoring for overload. Continue Guzmán due to retention. Patient critically ill - intensive medical care and treatment required to ensure good outcome. CCU care critically important. Hospital Course Summary Disclaimer: The visit summary below is not to be considered part of the above Progress Note.
[2017-04-09] MEDS: NS 1,000 ML IV SCH (13:30)
[2017-04-09] MEDS ORDERED: BISACODYL 10 MG SUPPOSITORY RECTALLY PRN (14:06)
[2017-04-09] MEDS ORDERED: PHYTONADIONE 1 MG/0.5 ML ORAL LIQUID PO ONE (14:26)
[2017-04-09] MEDS: MIDODRINE 10 MG TABLET PO SCH ×2 (14:41→18:07)
[2017-04-09] MEDS: CEFTRIAXONE 2 GM in NS 100 ML IV SCH (16:34)
--- NOTE | 2017-04-09 18:26 | General Surgery Consult Note ---
Consult date: 04/09/17 Attending Physician: Luke Crowley MD. PCP Dr. Edith Castro Reason for consult: other (GI bleed) PFS Patient Stated Medical History Syncope Yes Angina Yes Cardiac Arrhythmia Yes Hypertension Yes Hypotension Yes Myocardial Infarction Yes Valvular Heart Disease Yes Diabetes Mellitus Type 2 Yes Gastroesophageal Reflux Yes Disease Hx Benign Prostatic Yes Hyperplasia Hx Incontinence No Other Yes: kidney infection hx of Sepsis Yes Depression Yes Surgical History: Pacemaker. 03/14/17- Bioprosthetic aortic valve replacement and mitral valve replacement Family History: mother-colon cancer father- squamous cell cancer on hand that mets to lung sister - suicide sister - brain aneurysm - Social History Smoking status: Never smoker Alcohol intake frequency: does not drink Previous occupational history: experienced truck driver Current residence: Apartment/Private Home ([facility] in [place]) Social history: Dalmatian dog he takes for walks several times a day. Medications Home Medications Medication Instructions Recorded Confirmed Type Acetaminophen Supp [Tylenol Supp] 650 mg RECTALLY Q4HR PRN MDD 6 04/02/17 History supps/24 hours BuPROPion IR [Wellbutrin Ir] 75 mg PO BID 04/02/17 04/02/17 History Ceftriaxone [Rocephin] 2 gm IV DAILY 04/02/17 04/02/17 History Citalopram Hydrobromide [Celexa] 20 mg PO HS 04/02/17 04/02/17 History Docusate Sodium [Colace] 1 cap PO BID 04/02/17 04/02/17 History Furosemide [Lasix] 1 tab PO DAILY 04/02/17 04/02/17 History GlyBURIDE [Micronase] 2.5 mg PO DAILY 04/02/17 04/02/17 History Metformin Xr [Glucophage Xr] 1,000 mg PO BID 04/02/17 04/02/17 History Midodrine [Proamatine] 10 mg PO ,,04/02/17 04/02/17 History Polyethylene Glycol 3350 [Miralax] 17 gm PO HS 04/02/17 04/02/17 History Potassium Chloride ER Tab [K-Dur] 1 tab PO DAILY 04/02/17 04/02/17 History Simvastatin [Zocor] 20 mg PO HS 04/02/17 04/02/17 History Warfarin [Coumadin] 2 mg PO 1700 04/02/17 04/02/17 History Allergies Allergy/AdvReac Type Severity Reaction Status Date / Time No Known Allergies Allergy Verified 04/02/17 13:14 Review of Systems 10-point ROS: negative except for HPI and the following: - General General: Present: other (fatigue, light headedness) - Eyes/Ears/Nose/Throat Eyes: Present: vision problems (wears glasses) - Cardiovascular Cardiovascular: Present: other (recent aortic and mitral valve replacement) - Gastrointestinal Gastrointestinal: Present: blood in stools, hemorrhoids - Neurological Neurological: Present: muscle weakness - Psychiatric Psychiatric: Present: depression - Hematologic/Lymphatic Hematologic/Lymphatic: Present: easy bruising, use of blood thinners - Vital Signs Last Vital Signs Temp 98.2 F 04/09/17 16:00 Pulse 83 04/09/17 16:45 Resp 19 04/09/17 16:45 BP 98/66 04/09/17 16:33 Pulse Ox 99 04/09/17 16:45 - Laboratory Result Diagrams: 04/09/17 13:48 General Surgery Results - Results Labs: 04/09/17 13:48 Hospital Course Summary Disclaimer: The visit summary below is not to be considered part of the above Progress Note. Hospital Course: 04/09/17 15:02 Assessment/Plan: GI Bleed, acute. * Mr. Blackman was transferred from IRU to ICU in light of hemodynamic deterioration for closer respiratory and cardiac monitoring and continued care. * + fecal hemoccult on 04/08. Hemoglobin trending down at 6.1 this AM. Patient given 1 unit PRBC with improvement of hemoglobin to 6.6. Will given additional 1 unit PRBC and recheck H&H. Continue to monitor blood counts closely and monitor closely for signs of bleeding. * Dr. Denis was consulted for evaluation of possible endoscopy once stabilized. Appreciate his time and expertise. Clear liquid diet in light of acute bleed. * Initiate NS 100cc/hr for fluid resuscitation and monitor closely for signs of fluid overload and respiratory symptoms. CXR on 04/09 revealed decreased pleural effusion and improvement in aeration of left lower lung. Encourage incentive spirometry. * Initiate Protonix 40mg IV BID for GI protection and GERD. * Acute elevation in BUN to 45 most likely secondary to blood loss with SCr stable at 1.1. Recheck BMP in AM to monitor electrolytes and renal function. Monitor urinary output closely in light of recent acute kidney injury while hospitalized at [place]. 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 * Patient seen and evaluated by Dr. Adame while in IRU. Appreciate his time and expertise. Echocardiogram obtained on 04/08 with results pending to ensure hemoglobin decrease was not related to bleeding from recent surgery in chest. * Patient remains on Rocephin 2g IV for antimicrobial coverage following valve replacement. Treatment to be continued a total duration of 8 weeks and to be complete on 05/10/17. Monitor closely on telemetry Orthostatic hypotension, acute. * Monitor blood pressure closely. Blood pressure initially 77/56 prior to transfer from IRU. Following 1 unit PRBC, blood pressure improved to 92/64. Continue to hold home blood pressure medications. Continue to give midodrine TID. History of hypertension, chronic. * Hold home medications in light of hypotension including beta-cassi, MANNY, lasix. Type II Diabetes, chronic. * Blood sugars well controlled in IRU following decrease of home metformin to 500mg BID. Continue to hold glyburide in light of decreased oral intake and prior episodes of hypoglycemia. Monitor closely for hypoglycemia. Atrial fibrillation with pacemaker, chronic. * Monitor closely on telemetry. Anticoagulation currently on hold in light of acute GI bleed. SCDs for DVT prophylaxis. Chronic anticoagulation. * Coumadin recommended for 30 days following tissue valve replacement. INR this AM was 5.03. Patient was given 2mg Vit. K and 1 unit PRBC. INR decreased to 3.08. Will give an additional 2mg Vit. K and an additional 1 unit PRBC now and repeat H&H and INR following transfusion. Monitor closely for signs of bleeding. GERD, chronic. * Initiate Protonix 40mg IV BID for acute GI bleed and GI protection. Anxiety, chronic. * Continue home Wellbutrin. Urinary retention, acute. * Maintain Guzmán catheter. Dr. Palomo was previously consulted regarding his retention and recommended alpha-cassi which was held in light of hypotension. Consider bladder retraining in near future once hemoglobin and GI bleed are stabilized. Upon discharge, patient's care will be returned to his PCP. Sepsis Assessment - Evaluation Sepsis screening result: No Definite Risk
[2017-04-09] MEDS: CITALOPRAM 20 MG TABLET PO SCH (20:56)
[2017-04-09] MEDS: BuPROPion IR 75 MG TABLET PO SCH (20:57)
[2017-04-09] MEDS: PANTOPRAZOLE 40 MG INJECTION IVP SCH (20:57)
[2017-04-09] MEDS: SIMVASTATIN 20 MG TABLET PO SCH (20:57)
--- NOTE | 2017-04-09 21:39 | Cardiology Consult Note ---
History of Present Illness Consult reason: hypotension History of present illness: consult initiated. pt seen about 9 am w Julia SAUNDERS in IRU complex 71 yo wm w recent double valve replacement (tissue) and old PPM insertion and CMP. on anticoagulation. has been feeling very dizzy just sitting up w orthostatic hypotension despite holding Lasix and giving Proamatin Rx. pt c/o feeling very tired and weak, denies cp or dyspnea. EKG NSR V paced. had a dark smelly BP last night "melena" and Hgb has been gradually drifting down and today 6.2 INR 5 and is getting PRBC Tx. Patient denies chest pain pressure or dyspnea. Mr. Blackman is an unfortunate and complex 71-year-old male admitted to [facility] on March 11 with the sepsis. It was accompanied by acute renal failure and acute respiratory failure. 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 He underwent double valve replacement using tissue valves 23 mm magna ease pericardial tissue in the aortic position, 27 magna pericardial mitral valve, LV outflow tract reconstruction of bilateral pleural effusions, atrial appendage ligation by Dr. Dami Mccoy. His coronary angiogram did not show any obstructive coronary artery disease. He had LV systolic dysfunction. Patient was on Coumadin for long-standing history of intermittent atrial fibrillation. In the immediate postoperative course he had pulmonary congestion required diuresis which eventually was withheld as Midrin was started due to orthostatic hypotension. Since admission and transfer from [place] to inpatient rehabilitation been able to get out of bed much due to severe dizziness and orthostasis. I was asked to see him in consultation to assist in his management. Since admission to IRU ,He had the mild anemia , not unusual following surgery , which has been drifting down and a big drop on April 09 morning down to about 6.2. His INR has been running high up to 5. Review of Systems Comprehensive ROS: completed and no additional positive findings except those as stated - EENMT Nose: Absent: nosebleeds Mouth/Throat: Present: dry mouth - Cardiovascular Rhythm: Present: regular rhythm Vascular: Absent: pedal edema - Genitourinary Genitourinary: Present: other (Guzmán catheter in place secondary to previous retention). Absent: hematuria PFSH Patient Stated Medical History Syncope Yes Angina Yes Cardiac Arrhythmia Yes Hypertension Yes Hypotension Yes Myocardial Infarction Yes Valvular Heart Disease Yes Diabetes Mellitus Type 2 Yes Gastroesophageal Reflux Yes Disease Hx Benign Prostatic Yes Hyperplasia Hx Incontinence No Other Yes: kidney infection hx of Sepsis Yes Depression Yes Surgical History: Pacemaker. 03/14/17- Bioprosthetic aortic valve replacement and mitral valve replacement - Social History Smoking status: Never smoker Current residence: Apartment/Private Home ([facility] in [place]) Medications Home Medications Medication Instructions Recorded Confirmed Type Acetaminophen Supp [Tylenol Supp] 650 mg RECTALLY Q4HR PRN MDD 6 04/02/17 History supps/24 hours BuPROPion IR [Wellbutrin Ir] 75 mg PO BID 04/02/17 04/02/17 History Ceftriaxone [Rocephin] 2 gm IV DAILY 04/02/17 04/02/17 History Citalopram Hydrobromide [Celexa] 20 mg PO HS 04/02/17 04/02/17 History Docusate Sodium [Colace] 1 cap PO BID 04/02/17 04/02/17 History Furosemide [Lasix] 1 tab PO DAILY 04/02/17 04/02/17 History GlyBURIDE [Micronase] 2.5 mg PO DAILY 04/02/17 04/02/17 History Metformin Xr [Glucophage Xr] 1,000 mg PO BID 04/02/17 04/02/17 History Midodrine [Proamatine] 10 mg PO ,,04/02/17 04/02/17 History Polyethylene Glycol 3350 [Miralax] 17 gm PO HS 04/02/17 04/02/17 History Potassium Chloride ER Tab [K-Dur] 1 tab PO DAILY 04/02/17 04/02/17 History Simvastatin [Zocor] 20 mg PO HS 04/02/17 04/02/17 History Warfarin [Coumadin] 2 mg PO 1700 04/02/17 04/02/17 History Allergies Allergy/AdvReac Type Severity Reaction Status Date / Time No Known Allergies Allergy Verified 04/02/17 13:14 Exam Vital signs: Temperature 96.8 F 04/09/17 20:00 Pulse Rate 77 04/09/17 21:01 Respiratory Rate 16 04/09/17 21:01 Blood Pressure 95/65 04/09/17 20:00 Pulse Oximetry 98 04/09/17 21:01 - Constitutional diaphoretic, other (very pale ) - Routine HEENT Exam Head: Present: normocephalic, atraumatic Eye: Present: EOMI, PERRL ENT: Present: mucous membranes dry - Routine Neck Exam Absent: JVD, carotid bruit - Routine Respiratory Exam Present: decreased breath sounds, CTA bilaterally - Routine Cardiovascular Exam Present: RRR, no murmur - Routine Abdominal Exam Present: soft, normoactive bowel sounds, non distended, non tender - Routine Extremities Exam Absent: cyanosis, clubbing, edema - Routine Skin Exam Present: intact, pallor. Absent: cyanosis - Routine Neurological Exam Present: alert, oriented X3, CN II-XII intact, normal speech. Absent: motor deficit, facial asymmetry - Routine Psychiatric Exam Present: normal affect, cooperative Results 04/10/17 17:10 04/10/17 04:06 CBC 04/09/17 04/09/17 Range/Units 13:48 20:25 WBC 6.0 (4.5-11.0) T/MM3 RBC 2.12 L (4.50-5.90) M/MM3 Hgb 6.6 L 8.4 L D (13.5-17.5) GM/DL Hct 21.0 L 25.5 L D (41-53) % Plt Count 187 (130-400) T/MM3 Intake and Output 04/09/17 04/09/17 04/09/17 06:59 14:59 22:59 Intake Total 50 / 50 781.667 / 781.667 Output Total 175 / 175 402 / 402 Balance -125 / -125 379.667 / 379.667 Intake: IV 50 / 50 441.667 / 441.667 Rocephin 2 GM In Normal 100 / 100 Saline 100 ml @ 200 mls/ hr IV Q24H JENNIFER Rx#: [id number] Normal Saline 1,000 ml @ 50 / 50 341.667 / 341.667 100 mls/hr IV .Q10H JENNIFER Rx#:[id number] Intake (Blood Product) 340 / 340 Amt Output: Urine Amount (Catheter) 175 / 175 402 / 402 Other: Urine Appearance Clear Urine Color Pale Yellow Yellow Weight 78.1 kg Labs 04/09/2017 reviewed with Julia SAUNDERS on the spot Telemetry showed demand ventricular paced rhythm A-V dissociation, possible underlying A. fib Chest x-ray is clear post op normal heart size for a portable film possible tiny left pleural effusion - Imaging and Cardiology EKG results: other (ventricular paced) Hospital Course Summary Disclaimer: The visit summary below is not to be considered part of the above Progress Note. Hospital Course: 04/09/17 15:02 Assessment/Plan: GI Bleed, acute. * Mr. Blackman was transferred from IRU to ICU in light of hemodynamic deterioration for closer respiratory and cardiac monitoring and continued care. * + fecal hemoccult on 04/08. Hemoglobin trending down at 6.1 this AM. Patient given 1 unit PRBC with improvement of hemoglobin to 6.6. Will given additional 1 unit PRBC and recheck H&H. Continue to monitor blood counts closely and monitor closely for signs of bleeding. * Dr. Denis was consulted for evaluation of possible endoscopy once stabilized. Appreciate his time and expertise. Clear liquid diet in light of acute bleed. * Initiate NS 100cc/hr for fluid resuscitation and monitor closely for signs of fluid overload and respiratory symptoms. CXR on 04/09 revealed decreased pleural effusion and improvement in aeration of left lower lung. Encourage incentive spirometry. * Initiate Protonix 40mg IV BID for GI protection and GERD. * Acute elevation in BUN to 45 most likely secondary to blood loss with SCr stable at 1.1. Recheck BMP in AM to monitor electrolytes and renal function. Monitor urinary output closely in light of recent acute kidney injury while hospitalized at [place]. 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 * Patient seen and evaluated by Dr. Adame while in IRU. Appreciate his time and expertise. Echocardiogram obtained on 04/08 with results pending to ensure hemoglobin decrease was not related to bleeding from recent surgery in chest. * Patient remains on Rocephin 2g IV for antimicrobial coverage following valve replacement. Treatment to be continued a total duration of 8 weeks and to be complete on 05/10/17. Monitor closely on telemetry Orthostatic hypotension, acute. * Monitor blood pressure closely. Blood pressure initially 77/56 prior to transfer from IRU. Following 1 unit PRBC, blood pressure improved to 92/64. Continue to hold home blood pressure medications. Continue to give midodrine TID. History of hypertension, chronic. * Hold home medications in light of hypotension including beta-cassi, MANNY, lasix. Type II Diabetes, chronic. * Blood sugars well controlled in IRU following decrease of home metformin to 500mg BID. Continue to hold glyburide in light of decreased oral intake and prior episodes of hypoglycemia. Monitor closely for hypoglycemia. Atrial fibrillation with pacemaker, chronic. * Monitor closely on telemetry. Anticoagulation currently on hold in light of acute GI bleed. SCDs for DVT prophylaxis. Chronic anticoagulation. * Coumadin recommended for 30 days following tissue valve replacement. INR this AM was 5.03. Patient was given 2mg Vit. K and 1 unit PRBC. INR decreased to 3.08. Will give an additional 2mg Vit. K and an additional 1 unit PRBC now and repeat H&H and INR following transfusion. Monitor closely for signs of bleeding. GERD, chronic. * Initiate Protonix 40mg IV BID for acute GI bleed and GI protection. Anxiety, chronic. * Continue home Wellbutrin. Urinary retention, acute. * Maintain Guzmán catheter. Dr. Palomo was previously consulted regarding his retention and recommended alpha-cassi which was held in light of hypotension. Consider bladder retraining in near future once hemoglobin and GI bleed are stabilized. Upon discharge, patient's care will be returned to his PCP. 04/09/17 21:41 Plan as discussed with you , urgent transfer to CCU , IV fluids , PRBC Tx, reverse anticogualtion , if further bleed consider FFP. echocardiogram to look at the pericardial space , as well as reassess LV function and valves repeat CXR due to bleed coagulopathy and recent cardiac surgery hemodynamic support w IVF. thank you 04/10/17 18:52 Sepsis Assessment - Evaluation Sepsis screening result: No Definite Risk
[2017-04-10] MEDS: NS 1,000 ML IV SCH ×4 (03:42→17:27)
[2017-04-10] MEDS ORDERED: GLYBURIDE 2.5 MG TABLET PO SCH (09:00)
[2017-04-10] MEDS ORDERED: CEFTRIAXONE 2 GM INJECTION IV SCH (09:00)
[2017-04-10] MEDS: PANTOPRAZOLE 40 MG INJECTION IVP SCH ×2 (09:13→20:41)
[2017-04-10] MEDS: BuPROPion IR 75 MG TABLET PO SCH ×2 (09:13→20:40)
[2017-04-10] MEDS: MIDODRINE 10 MG TABLET PO SCH ×3 (09:13→16:53)
--- NOTE | 2017-04-10 10:40 | Progress Note ---
Subjective: F/U: Symptomatic anemia, acute GI blood loss Feeling better today-not as dizzy/weak with positional changes. Breathing stable -no increased congestion or SOA post transfusions. Denies pain with breathing. No chest pain or palpitation. Denies ab pain, nausea or vomiting. Passing flatus. Tolerating Guzmán. Denies pain in general. Is tired of being in bed and would like to be more active (knowing to take activities slow and easy). Objective Vital signs: Temperature 98.4 F 04/10/17 08:00 Pulse Rate 98 04/10/17 10:07 Respiratory Rate 26 H 04/10/17 10:07 Blood Pressure 83/56 04/10/17 10:07 Pulse Oximetry 98 04/10/17 10:07 Height/Weight/BMI: Height 1.8 m Weight 79.6 kg Body Mass Index 24.0 - Constitutional Present: well nourished, well developed, cooperative - Routine HEENT Exam Head: Present: normocephalic, atraumatic Eye: Present: EOMI, PERRL ENT: Present: mucous membranes moist - Routine Respiratory Exam Present: CTA bilaterally. Absent: respiratory distress, wheezes, crackles - Routine Cardiovascular Exam Present: RRR - Routine Abdominal Exam Present: soft, normoactive bowel sounds, non distended, non tender - Routine Extremities Exam Present: no edema. Absent: cyanosis, clubbing Comments: SCD in place - Routine Musculoskeletal Exam Musculoskeletal: Present: no joint swelling. Absent: no clubbing or cyanosis - Routine Skin Exam Present: intact, dry, warm. Absent: pallor - Routine Neurological Exam Present: alert, oriented X3, CN II-XII intact, vision grossly intact, hearing grossly intact. 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 With his CHF and significant orthostasis, would be prudent to have hemoglobin closer to 10. Hemoglobin 10 at time of admission to IRU. Decrease IVF to 75cc/hr to decrease risk for overload. Coumadin stopped and INR reversed with Vitamin K. INR 1.54 this morning. With significant anemia requiring requiring transfusion Coumadin contraindicated at this time. Possible EGD - Sx waiting of H. pylori testing. Continue Rocephin due to recent endocarditis. Gradually increase activities to help strength. Monitor sugars. Clinically improving, but will continue CCU monitoring for now to ensure stability. Case discussed with CCU nursing and Dequan with Dr Denis. Time spent with patient care 35 minutes. - Time spent with patient greater than 35 minutes Sepsis Assessment - Evaluation Sepsis screening result: No Definite Risk Hospital Course Summary Disclaimer: The visit summary below is not to be considered part of the above Progress Note. Hospital Course: 04/09/17 Admission to CCU inpatient Assessment/Plan: GI Bleed, acute. * Mr. Blackman was transferred from IRU to ICU in light of hemodynamic deterioration for closer respiratory and cardiac monitoring and continued care. * + fecal hemoccult on 04/08. Hemoglobin trending down at 6.1 this AM. Patient given 1 unit PRBC with improvement of hemoglobin to 6.6. Will given additional 1 unit PRBC and recheck H&H. Continue to monitor blood counts closely and monitor closely for signs of bleeding. * Dr. Denis was consulted for evaluation of possible endoscopy once stabilized. Appreciate his time and expertise. Clear liquid diet in light of acute bleed. * Initiate NS 100cc/hr for fluid resuscitation and monitor closely for signs of fluid overload and respiratory symptoms. CXR on 04/09 revealed decreased pleural effusion and improvement in aeration of left lower lung. Encourage incentive spirometry. * Initiate Protonix 40mg IV BID for GI protection and GERD. * Acute elevation in BUN to 45 most likely secondary to blood loss with SCr stable at 1.1. Recheck BMP in AM to monitor electrolytes and renal function. Monitor urinary output closely in light of recent acute kidney injury while hospitalized at [facility]. 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 * Patient seen and evaluated by Dr. Adame while in IRU. Appreciate his time and expertise. Echocardiogram obtained on 04/08 with results pending to ensure hemoglobin decrease was not related to bleeding from recent surgery in chest. * Patient remains on Rocephin 2g IV for antimicrobial coverage following valve replacement. Treatment to be continued a total duration of 8 weeks and to be complete on 05/10/17. Monitor closely on telemetry Orthostatic hypotension, acute. * Monitor blood pressure closely. Blood pressure initially 77/56 prior to transfer from IRU. Following 1 unit PRBC, blood pressure improved to 92/64. Continue to hold home blood pressure medications. Continue to give midodrine TID. History of hypertension, chronic. * Hold home medications in light of hypotension including beta-cassi, MANNY, lasix. Type II Diabetes, chronic. * Blood sugars well controlled in IRU following decrease of home metformin to 500mg BID. Continue to hold glyburide in light of decreased oral intake and prior episodes of hypoglycemia. Monitor closely for hypoglycemia. Atrial fibrillation with pacemaker, chronic. * Monitor closely on telemetry. Anticoagulation currently on hold in light of acute GI bleed. SCDs for DVT prophylaxis. Chronic anticoagulation. * Coumadin recommended for 30 days following tissue valve replacement. INR this AM was 5.03. Patient was given 2mg Vit. K and 1 unit PRBC. INR decreased to 3.08. Will give an additional 2mg Vit. K and an additional 1 unit PRBC now and repeat H&H and INR following transfusion. Monitor closely for signs of bleeding. GERD, chronic. * Initiate Protonix 40mg IV BID for acute GI bleed and GI protection. Anxiety, chronic. * Continue home Wellbutrin. Urinary retention, acute. * Maintain Guzmán catheter. Dr. Palomo was previously consulted regarding his retention and recommended alpha-cassi which was held in light of hypotension. Consider bladder retraining in near future once hemoglobin and GI bleed are stabilized. Upon discharge, patient's care will be returned to his PCP. 04/09/17 Recheck CBC today at noon - HGB improved to 8.1 this am. With his CHF and significant orthostasis, would be prudent to have hemoglobin closer to 10. Hemoglobin 10 at time of admission to IRU. Decrease IVF to 75cc/hr to decrease risk for overload. Coumadin stopped and INR reversed with Vitamin K. INR 1.54 this morning. With significant anemia requiring requiring transfusion Coumadin contraindicated at this time. Possible EGD - Sx waiting of H. pylori testing. Continue Rocephin due to recent endocarditis. Gradually increase activities to help strength. Monitor sugars. Clinically improving, but will continue CCU monitoring for now to ensure stability.
--- NOTE | 2017-04-10 11:22 | Consultation ---
DATE OF CONSULTATION 04/09/2017 FINDINGS Mr. Blackman is a 71-year-old male whom I was asked to see today as a result of his finding of progressive anemia upon laboratory evaluation. Mr. Blackman does have a very complex recent medical history. His son was present and did provide some of the clinical history. Additionally, some of the clinical history was also obtained from reviewing his chart. In summary, the patient developed infectious endocarditis with associated septic shock. He did undergo a repair of aortic and mitral valve as a result of bacterial vegetations from streptococcus. His postoperative course was quite complicated and he did develop respiratory failure requiring prolonged mechanical ventilation. The patient was recently admitted to our inpatient rehab unit for strengthening and conditioning following this severe illness. Today he was stating that he was feeling significantly more weak and fatigued. CBC was obtained and he was found to have a hemoglobin of 6.0. This had decreased from a hemoglobin of 8 yesterday. The patient was subsequently admitted to the ICU for further care. His INR was found to be significantly prolonged. He has received vitamin K. Upon questioning the patient, he denies really any history for significant abdominal pain or discomfort. He denied any history for belle melena nor hematochezia. He states that he did have a very "hard stool" which "flared his hemorrhoids up". The patient this evening was in good spirits. PAST MEDICAL HISTORY Performed by my nurse practitioner, Dequan Wise. PAST SURGICAL HISTORY Performed by my nurse practitioner, Dequan Wise. MEDICATIONS Performed by my nurse practitioner, Dequan Wise. ALLERGIES Performed by my nurse practitioner, Dequan Wise. SOCIAL HISTORY Performed by my nurse practitionerDequan. FAMILY HISTORY Performed by my nurse practitionerDequan. REVIEW OF SYSTEMS Performed by my nurse practitionerDequan. PHYSICAL EXAMINATION GENERAL: Mr. Blackman is a 71-year-old gentleman who, as stated above, this evening did not appear to be in acute distress. VITALS: Temperature 98.2. Pulse 83. Respirations 19. Blood pressure 98/66. SaO2 99% on room air. HEENT: Normocephalic. Pupils are equally round and react to light and accommodation. CHEST: Clear to auscultation bilaterally. The patient does have a well-healed sternotomy incision present. There is no evidence for erythema. HEART: Regular rate and rhythm. Normal S1, S2, without gallops, murmurs or clicks. ABDOMEN: Palpation of the abdomen this evening reveals it to be soft and completely nontender. He did not have any element for guarding or rebound. No evidence for hepatomegaly or other abnormal masses. EXTREMITIES: Without clubbing, cyanosis, or edema. NEURO: Cranial nerves II-XII grossly intact. Patient without focal, motor, or sensory deficits. LABORATORY/RADIOGRAPHIC EVALUATION The patient's hemoglobin earlier this morning was 6.6. Two units have been given and a repeat CBC has been ordered. These results are pending at the time of dictation. INR after being given vitamin K has decreased to 3.0. ASSESSMENT 71-year-old gentleman with multiple medical comorbidities who was found to have developed progressive anemia most likely as a result of GI bleed and supratherapeutic INR. PLAN I agree with current management of this patient by reversing his supratherapeutic INR. Agree with treating the patient empirically for peptic ulcer disease. The patient currently is on Protonix 40 mg IV b.i.d. At this time I would not recommend proceeding with endoscopic evaluation unless the patient would show signs of ongoing bleeding such as the development of belle melena, hematochezia or hematemesis. Furthermore, if the patient requires ongoing blood transfusions, would then recommend proceeding with endoscopic evaluation. Otherwise I would recommend continuing with current medical therapy. One may wish also to obtain a serum H. pylori and treat accordingly pending these results. Will continue to follow along with the patient's care. SERA
[2017-04-10] MEDS ORDERED: NS FLUSH BAG 500ml IV PRN (13:18)
[2017-04-10] MEDS: CEFTRIAXONE 2 GM in NS 100 ML IV SCH (16:53)
--- NOTE | 2017-04-10 18:59 | Cardiology Progress Note ---
Subjective Interval history: Seen in follow-up from my consultation 04/09/2017. Patient was seen today around 1330. I have visited in follow-up last night as well. Tolerating by mouth okay good appetite denies nausea. No complaints of chest pain dyspnea. He still gets little dizzy getting up per RN. He dropped his blood pressure by 10 points heart rate by 20 points. No bowel movements for [address] Ezra Denis following patient. Apparently endoscopy was on hold due to coagulopathy stabilized bleed Nurse had questions about patient's rhythms , patient is asymptomatic of palpitations. Has known long-standing history of A. fib and aN old pacemaker in place Telemetry shows demand V paced, the overlying narrow QRS complex probably junctional with high-grade AV block and AV dissociation possible intermittent A. fib. We could confirm rhythm by doing a pacemaker interrogation but really does not alter management. Exam Vital signs: Temperature 97.9 F 04/10/17 15:55 Pulse Rate 75 04/10/17 17:00 Respiratory Rate 22 04/10/17 16:00 Blood Pressure 104/71 04/10/17 16:00 Pulse Oximetry 100 04/10/17 16:00 - Constitutional cooperative, other (pale but looks better) - Routine HEENT Exam Head: Present: normocephalic, atraumatic Eye: Present: EOMI, PERRL ENT: Present: mucous membranes moist - Routine Neck Exam Absent: JVD, carotid bruit - Routine Respiratory Exam Present: CTA bilaterally - Routine Cardiovascular Exam Present: RRR, no murmur - Routine Abdominal Exam Present: soft, normoactive bowel sounds - Routine Extremities Exam Present: no edema. Absent: cyanosis, clubbing - Routine Skin Exam Present: intact. Absent: cyanosis - Routine Neurological Exam Present: alert, oriented X3, CN II-XII intact, moving all extremities, normal speech. Absent: motor deficit, facial asymmetry - Routine Psychiatric Exam Present: normal affect - Urinary Catheter Management Urethral Cath placed during this visit: yes Urethral indwelling: Yes Reason for continuing: Acute Urinary Retention Insertion date: 04/03/17 Insertion time: 18:24 Progress Note-A&P - Time Spent With Patient Total time spent is greater than 50% in coordination of care (as documented) at patient's floor/unit and/or counseling patient: 25 - 35 minutes Sepsis Assessment - Evaluation Sepsis screening result: No Definite Risk Hospital Course Summary Disclaimer: The visit summary below is not to be considered part of the above Progress Note. Hospital Course: 04/09/17 15:02 Assessment/Plan: GI Bleed, acute. * Mr. Blackman was transferred from IRU to ICU in light of hemodynamic deterioration for closer respiratory and cardiac monitoring and continued care. * + fecal hemoccult on 04/08. Hemoglobin trending down at 6.1 this AM. Patient given 1 unit PRBC with improvement of hemoglobin to 6.6. Will given additional 1 unit PRBC and recheck H&H. Continue to monitor blood counts closely and monitor closely for signs of bleeding. * Dr. Denis was consulted for evaluation of possible endoscopy once stabilized. Appreciate his time and expertise. Clear liquid diet in light of acute bleed. * Initiate NS 100cc/hr for fluid resuscitation and monitor closely for signs of fluid overload and respiratory symptoms. CXR on 04/09 revealed decreased pleural effusion and improvement in aeration of left lower lung. Encourage incentive spirometry. * Initiate Protonix 40mg IV BID for GI protection and GERD. * Acute elevation in BUN to 45 most likely secondary to blood loss with SCr stable at 1.1. Recheck BMP in AM to monitor electrolytes and renal function. Monitor urinary output closely in light of recent acute kidney injury while hospitalized at [place]. 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 * Patient seen and evaluated by Dr. Adame while in IRU. Appreciate his time and expertise. Echocardiogram obtained on 04/08 with results pending to ensure hemoglobin decrease was not related to bleeding from recent surgery in chest. * Patient remains on Rocephin 2g IV for antimicrobial coverage following valve replacement. Treatment to be continued a total duration of 8 weeks and to be complete on 05/10/17. Monitor closely on telemetry Orthostatic hypotension, acute. Appears to be related to acute blood loss, although underlying autonomic neuropathy associated with diabetes may be present as well. * Monitor blood pressure closely. Blood pressure initially 77/56 prior to transfer from IRU. Following 1 unit PRBC, blood pressure improved to 92/64. Continue to hold home blood pressure medications. Continue to give midodrine TID. History of hypertension, chronic. * Hold home medications in light of hypotension including beta-cassi, MANNY, lasix. Type II Diabetes, chronic. * Blood sugars well controlled in IRU following decrease of home metformin to 500mg BID. Continue to hold glyburide in light of decreased oral intake and prior episodes of hypoglycemia. Monitor closely for hypoglycemia. Atrial fibrillation with pacemaker, chronic. * Monitor closely on telemetry. Anticoagulation currently on hold in light of acute GI bleed. SCDs for DVT prophylaxis. Chronic anticoagulation. * Coumadin recommended for 30 days following tissue valve replacement. INR this AM was 5.03. Patient was given 2mg Vit. K and 1 unit PRBC. INR decreased to 3.08. Will give an additional 2mg Vit. K and an additional 1 unit PRBC now and repeat H&H and INR following transfusion. Monitor closely for signs of bleeding. GERD, chronic. * Initiate Protonix 40mg IV BID for acute GI bleed and GI protection. Anxiety, chronic. * Continue home Wellbutrin. Urinary retention, acute. * Maintain Guzmán catheter. Dr. Palomo was previously consulted regarding his retention and recommended alpha-cassi which was held in light of hypotension. Consider bladder retraining in near future once hemoglobin and GI bleed are stabilized. Upon discharge, patient's care will be returned to his PCP. 04/09/17 21:41 I agree current supportive measures. The coagulation to remain off. Blood transfusion is reasonable. I'll see the patient follow-up tomorrow. Continue ProAmatine .
--- NOTE | 2017-04-10 19:59 | Progress Note ---
DATE OF SERVICE 04/09/2017 FINDINGS Mr. Blackman was seen earlier today on rounds. He was in good spirits. He was requesting "more food to eat." He denied any element of abdominal pain. He had had no hematemesis, melena nor hematochezia. EXAM VITAL SIGNS: Afebrile, normotensive. Last recorded vitals include temperature 97.9, pulse 75, respirations 22, blood pressure 104/71, SAO2 100% on room air. HEENT: Normocephalic. Pupils are equally round and react to light and accommodation. CHEST: Clear to auscultation bilaterally. HEART: Regular rate and rhythm. Normal S1 and S2 without gallops, murmurs or clicks. ABDOMEN: Palpation of the abdomen reveals it to be soft and completely nontender this evening. LABORATORY/RADIOGRAPHIC EVALUATION The patient's hemoglobin earlier today was 9.5. INR had improved to 1.5. CMP was obtained and reviewed. ASSESSMENT 71-year-old gentleman with multiple medical comorbidities, recent onset of progressive anemia with associated supratherapeutic INR. Patient without evidence of ongoing GI bleed at this time. PLAN I agree with current management of this patient. Will go and advance his diet as tolerated. At this time I would not recommend proceeding with EGD or colonoscopy given his recent cardiac surgery and multiple medical comorbidities. Would recommend continued empiric treatment for peptic ulcer disease. Will check serum H. pylori when it becomes available - results are still pending. MTDD
[2017-04-10] MEDS: CITALOPRAM 20 MG TABLET PO SCH (20:41)
[2017-04-10] MEDS: SIMVASTATIN 20 MG TABLET PO SCH (20:41)
[2017-04-11] MEDS: NS 1,000 ML IV SCH ×2 (00:24→07:14)
[2017-04-11] MEDS: ASCORBIC ACID 500 MG TABLET PO SCH (08:27)
[2017-04-11] MEDS: FERROUS SULFATE 324 MG TABLET PO SCH (08:27)
[2017-04-11] MEDS: MIDODRINE 10 MG TABLET PO SCH ×3 (08:29→18:48)
[2017-04-11] MEDS: BuPROPion IR 75 MG TABLET PO SCH ×2 (08:30→21:48)
[2017-04-11] MEDS: PANTOPRAZOLE 40 MG INJECTION IVP SCH ×2 (08:32→21:47)
[2017-04-11] MEDS: SALINE FLUSH 10ml SYRINGE IV PRN ×3 (10:28→21:48)
--- NOTE | 2017-04-11 11:01 | Progress Note ---
Subjective: F/U: Symptomatic anemia, acute GI blood loss Doing okay this am. Has been up in chair and walked in halls-still has some dizziness/unsteadiness but improving from yesterday (and much better than at admission to CCU). Very weak and deconditioned in general - prior to hospitalization in [place] was walking 3 miles a day without problems. No chest pressure or pain. Breathing stable-no increased SOA, cough, or congestion. Denies incisional discomfort. Eating okay-no nausea or ab pain. Passing flatus, no stool. No f/c. Objective Vital signs: Temperature 98.0 F 04/11/17 08:00 Pulse Rate 95 04/11/17 09:00 Respiratory Rate 18 04/11/17 08:00 Blood Pressure 108/63 04/11/17 08:00 Pulse Oximetry 98 04/11/17 08:00 Height/Weight/BMI: Height 1.8 m Weight 80.1 kg Body Mass Index 24.0 - Constitutional Present: well nourished, well developed, cooperative - Routine HEENT Exam Head: Present: normocephalic, atraumatic Eye: Present: EOMI, PERRL ENT: Present: mucous membranes moist - Routine Respiratory Exam Present: CTA bilaterally. Absent: respiratory distress, wheezes, crackles - Routine Cardiovascular Exam Present: RRR - Routine Abdominal Exam Present: soft, normoactive bowel sounds, non distended, non tender - Routine Extremities Exam Present: cyanosis, clubbing, no edema Comments: SCD in place - Routine Musculoskeletal Exam Musculoskeletal: Present: no clubbing or cyanosis, no tenderness, no erythema - Routine Skin Exam Present: intact, warm, normal turgor - Routine Neurological Exam Present: alert, oriented X3, CN II-XII intact, vision grossly intact, hearing grossly intact. 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 Recheck HGB yesterday post transfusion was 9.5. Do not feel patient lost 1 unit of blood since then. Finger stick HGB tend to run higher than HGB with venous draw for CBC. Would like to see HGB closer to 10 with his CV disease. Coumadin stopped due to significant anemia requiring transfusion. Diet advanced - monitor sugars. Hold metformin for now as sugars well controlled. Stop IVF as diet advance and pt with systolic HF. Continue Protonix IV. Dr Denis wanting to hold on EGD at this time. Monitor blood counts. Continue to increase activities. Will consult PT/OT to help. Patient very debilitated. Continue Rocephin due to recent endocarditis. As patient has stabilized medically, will transfer to medical floor for continuation of care. Case discussed with CCU nursing and [place] with Dr Denis. Time spent with patient care 35 minutes. Sepsis Assessment - Evaluation Sepsis screening result: No Definite Risk Hospital Course Summary Disclaimer: The visit summary below is not to be considered part of the above Progress Note. Hospital Course: 04/09/17 15:02 Assessment/Plan: GI Bleed, acute. * Mr. Blackman was transferred from IRU to ICU in light of hemodynamic deterioration for closer respiratory and cardiac monitoring and continued care. * + fecal hemoccult on 04/08. Hemoglobin trending down at 6.1 this AM. Patient given 1 unit PRBC with improvement of hemoglobin to 6.6. Will given additional 1 unit PRBC and recheck H&H. Continue to monitor blood counts closely and monitor closely for signs of bleeding. * Dr. Denis was consulted for evaluation of possible endoscopy once stabilized. Appreciate his time and expertise. Clear liquid diet in light of acute bleed. * Initiate NS 100cc/hr for fluid resuscitation and monitor closely for signs of fluid overload and respiratory symptoms. CXR on 04/09 revealed decreased pleural effusion and improvement in aeration of left lower lung. Encourage incentive spirometry. * Initiate Protonix 40mg IV BID for GI protection and GERD. * Acute elevation in BUN to 45 most likely secondary to blood loss with SCr stable at 1.1. Recheck BMP in AM to monitor electrolytes and renal function. Monitor urinary output closely in light of recent acute kidney injury while hospitalized at [place]. 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 * Patient seen and evaluated by Dr. Adame while in IRU. Appreciate his time and expertise. Echocardiogram obtained on 04/08 with results pending to ensure hemoglobin decrease was not related to bleeding from recent surgery in chest. * Patient remains on Rocephin 2g IV for antimicrobial coverage following valve replacement. Treatment to be continued a total duration of 8 weeks and to be complete on 05/10/17. Monitor closely on telemetry Orthostatic hypotension, acute. Appears to be related to acute blood loss, although underlying autonomic neuropathy associated with diabetes may be present as well. * Monitor blood pressure closely. Blood pressure initially 77/56 prior to transfer from IRU. Following 1 unit PRBC, blood pressure improved to 92/64. Continue to hold home blood pressure medications. Continue to give midodrine TID. History of hypertension, chronic. * Hold home medications in light of hypotension including beta-cassi, MANNY, lasix. Type II Diabetes, chronic. * Blood sugars well controlled in IRU following decrease of home metformin to 500mg BID. Continue to hold glyburide in light of decreased oral intake and prior episodes of hypoglycemia. Monitor closely for hypoglycemia. Atrial fibrillation with pacemaker, chronic. * Monitor closely on telemetry. Anticoagulation currently on hold in light of acute GI bleed. SCDs for DVT prophylaxis. Chronic anticoagulation. * Coumadin recommended for 30 days following tissue valve replacement. INR this AM was 5.03. Patient was given 2mg Vit. K and 1 unit PRBC. INR decreased to 3.08. Will give an additional 2mg Vit. K and an additional 1 unit PRBC now and repeat H&H and INR following transfusion. Monitor closely for signs of bleeding. GERD, chronic. * Initiate Protonix 40mg IV BID for acute GI bleed and GI protection. Anxiety, chronic. * Continue home Wellbutrin. Urinary retention, acute. * Maintain Guzmán catheter. Dr. Palomo was previously consulted regarding his retention and recommended alpha-cassi which was held in light of hypotension. Consider bladder retraining in near future once hemoglobin and GI bleed are stabilized. Upon discharge, patient's care will be returned to his PCP. 04/09/17 Recheck CBC today at noon - HGB improved to 8.1 this am. With his CHF and significant orthostasis, would be prudent to have hemoglobin closer to 10. Hemoglobin 10 at time of admission to IRU. Decrease IVF to 75cc/hr to decrease risk for overload. Coumadin stopped and INR reversed with Vitamin K. INR 1.54 this morning. With significant anemia requiring requiring transfusion Coumadin contraindicated at this time. Possible EGD - Sx waiting of H. pylori testing. Continue Rocephin due to recent endocarditis. Gradually increase activities to help strength. Monitor sugars. Clinically improving, but will continue CCU monitoring for now to ensure stability. 04/11/17 Will re-transfuse 1 unit of pRBC as HGB 8.6 this am and pt with extensive CV disease, hypotension. Recheck HGB yesterday post transfusion was 9.5. Do not feel patient lost 1 unit of blood since then. Finger stick HGB tend to run higher than HGB with venous draw for CBC. Would like to see HGB closer to 10 with his CV disease. Coumadin stopped due to significant anemia requiring transfusion. Diet advanced - monitor sugars. Hold metformin for now as sugars well controlled. Stop IVF as diet advance and pt with systolic HF. Continue Protonix IV. Dr Denis wanting to hold on EGD at this time. Monitor blood counts. Continue to increase activities. Will consult PT/OT to help. Patient very debilitated. Continue Rocephin due to recent endocarditis. As patient has stabilized medically, will transfer to medical floor for continuation of care.
--- NOTE | 2017-04-11 13:54 | Progress Note ---
DATE 04/11/2017 FINDINGS Mr. Blackman was in good spirits today. He is tolerating a regular diet without difficulty. He denied any element of abdominal pain. VITALS: Temp 98.0, pulse 95, respirations 18, blood pressure 108/63, Sa02 98% room air. HEENT: Normocephalic. Pupils are equal, round and reactive to light and accommodation. CHEST: Clear to auscultation bilaterally. HEART: Regular rate and rhythm. Normal S1 and S2 without gallops, murmurs or clicks. ABDOMEN: Soft, nontender. LABORATORY/RADIOGRAPH EVALUATION The patient had a CBC today and his hemoglobin overall is stable at 8.6. Last evening following transfusion his hemoglobin was 9.5. I believe this slight decrease in his hemoglobin is likely equilibration and not active bleeding. CMP was obtained and found to be within normal limits. His BUN is 19.0, again indicative that he does not have ongoing bleeding. Serum H. pylori results are still pending. ASSESSMENT 71-year-old gentleman with multiple medical comorbidities who recently developed progressive anemia in conjunction with supratherapeutic Coumadinization. Patient currently doing well. PLAN Agree with current management of this patient. Would not recommend endoscopic evaluation at this time and to continue with empiric treatment for peptic ulcer disease. I do believe the patient is stable enough that he could be transferred to the floor from a surgical/GI bleeding standpoint. Will continue to follow along in the patient's care and will likely sign off in the near future if he remains stable. SERA
[2017-04-11] MEDS ORDERED: ALTEPLASE (Cathflo*) 2mg INJECTION IV ONE (17:56)
[2017-04-11] MEDS: CEFTRIAXONE 2 GM in NS 100 ML IV SCH (18:46)
--- NOTE | 2017-04-11 20:43 | Cardiology Progress Note ---
Subjective Interval history: Mr. Blackman is feeling much better. Although he is a systolic blood pressures running in the low 100s for the most part, his dizziness has near completely resolved. He denies any angina or dyspnea has good appetite no nausea no bowel movements no further melena reported bleed. He was intermittent complex tachycardia probably more regularized a form of atrial fibrillation. Severe asymptomatic without any palpitations. No plans for endoscopy at this point. He had Coagulopathy. Discussed with the patient is echocardiogram findings at the valve function sufficiently the mitral could not be confirmed seen well. DIScussed with the patient the potential role for ELDON not too keen about it. I wouldn't want to do it either, unless he gets an upper endoscopy first given his GI bleed she appears to be of an upper source possibly stress-induced with anticoagulation and coagulopathy. So seems like It is warranted as he increase his activity. I will reevaluate him again early next week Friday or Friday. I will be Out over this holiday weekend. Family history shows normal sinus rhythm ventricular paced rhythm and intermittent narrow complex mild tachycardia. Don't want to use beta blockers as his intermittent hypotension continued to be problematic. No MANNY inhibitor for his carpal myopathy again for the same reason. 1 might add digoxin to control his tachycardia/ A. fib should it become more significant Exam Vital signs: Temperature 98.6 F 04/11/17 20:00 Pulse Rate 79 04/11/17 20:00 Respiratory Rate 18 04/11/17 20:00 Blood Pressure 105/77 04/11/17 20:00 Pulse Oximetry 95 04/11/17 20:00 - Constitutional average body habitus, cooperative, other (ill appearing much less pale) - Routine HEENT Exam Head: Present: normocephalic, atraumatic Eye: Present: EOMI, PERRL - Routine Neck Exam Absent: JVD, carotid bruit - Routine Respiratory Exam Present: decreased breath sounds (in the bases), CTA bilaterally - Routine Cardiovascular Exam Present: RRR, murmur (soft systolic murmur in the apex versus faint rub) - Routine Abdominal Exam Present: soft, normoactive bowel sounds, non distended, non tender - Routine Extremities Exam Present: no edema. Absent: cyanosis, clubbing, edema - Routine Skin Exam Present: dry. Absent: cyanosis - Routine Neurological Exam Present: alert, oriented X3, CN II-XII intact, moving all extremities, vision grossly intact, hearing grossly intact, normal speech. Absent: motor deficit, facial asymmetry - Routine Psychiatric Exam Present: normal affect, cooperative, good insight - Urinary Catheter Management Urethral Cath placed during this visit: yes Urethral indwelling: No Insertion date: 04/03/17 Insertion time: 18:24 Progress Note-A&P - Time Spent With Patient Total time spent is greater than 50% in coordination of care (as documented) at patient's floor/unit and/or counseling patient: 25 - 35 minutes Sepsis Assessment - Evaluation Sepsis screening result: No Definite Risk Hospital Course Summary Disclaimer: The visit summary below is not to be considered part of the above Progress Note. Hospital Course: 04/09/17 15:02 Assessment/Plan: GI Bleed, acute. * Mr. Blackman was transferred from IRU to ICU in light of hemodynamic deterioration for closer respiratory and cardiac monitoring and continued care. * + fecal hemoccult on 04/08. Hemoglobin trending down at 6.1 this AM. Patient given 1 unit PRBC with improvement of hemoglobin to 6.6. Will given additional 1 unit PRBC and recheck H&H. Continue to monitor blood counts closely and monitor closely for signs of bleeding. * Dr. Denis was consulted for evaluation of possible endoscopy once stabilized. Appreciate his time and expertise. Clear liquid diet in light of acute bleed. * Initiate NS 100cc/hr for fluid resuscitation and monitor closely for signs of fluid overload and respiratory symptoms. CXR on 04/09 revealed decreased pleural effusion and improvement in aeration of left lower lung. Encourage incentive spirometry. * Initiate Protonix 40mg IV BID for GI protection and GERD. * Acute elevation in BUN to 45 most likely secondary to blood loss with SCr stable at 1.1. Recheck BMP in AM to monitor electrolytes and renal function. Monitor urinary output closely in light of recent acute kidney injury while hospitalized at [place]. 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 * Patient seen and evaluated by Dr. Adame while in IRU. Appreciate his time and expertise. Echocardiogram obtained on 04/08 with results pending to ensure hemoglobin decrease was not related to bleeding from recent surgery in chest. * Patient remains on Rocephin 2g IV for antimicrobial coverage following valve replacement. Treatment to be continued a total duration of 8 weeks and to be complete on 05/10/17. Monitor closely on telemetry Orthostatic hypotension, acute. Appears to be related to acute blood loss, although underlying autonomic neuropathy associated with diabetes may be present as well. * Monitor blood pressure closely. * Precludes use of heart failure meds. * Continue to give midodrine TID. * Clearly improved after feeling his intravascular volume with blood transfusion * * History of hypertension, chronic. * Hold home medications in light of hypotension including beta-cassi, MANNY, lasix. Type II Diabetes, chronic. * Blood sugars well controlled in IRU following decrease of home metformin to 500mg BID. Continue to hold glyburide in light of decreased oral intake and prior episodes of hypoglycemia. Monitor closely for hypoglycemia. Intermittent Atrial fibrillation with pacemaker, chronic. * Monitor closely on telemetry. Anticoagulation currently on hold in light of acute GI bleed. SCDs for DVT prophylaxis. Chronic anticoagulation. 4 A. fib plus recent tissue valve replacement. It does not appear safe however at this time. * GERD, chronic. * Initiate Protonix 40mg IV BID for acute GI bleed and GI protection. Anxiety, chronic. * Continue home Wellbutrin. Urinary retention, acute. * Maintain Guzmán catheter. Dr. Palomo was previously consulted regarding his retention and recommended alpha-cassi which was held in light of hypotension. Consider bladder retraining in near future once hemoglobin and GI bleed are stabilized. Upon discharge, patient's care will be returned to his PCP. And specialist icu in [place]. No ELDON planned at this time due to upper GI bleed and coagulopathy. echocardiogram findings at the valve function sufficiently the mitral could not be confirmed seen well. DIScussed with the patient the potential role for ELDON not too keen about it. I wouldn't want to do it either, unless he gets an upper endoscopy first given his GI bleed she appears to be of an upper source possibly stress-induced with anticoagulation and coagulopathy. So seems like It is warranted as he increase his activity. I will reevaluate him again early next week Friday or Friday. I will be Out over this holiday weekend. Family history shows normal sinus rhythm ventricular paced rhythm and intermittent narrow complex mild tachycardia. Don't want to use beta blockers as his intermittent hypotension continued to be problematic. No MANNY inhibitor for his carpal myopathy again for the same reason. 1 might add digoxin to control his tachycardia/ A. fib should it become more significant. He should remain off anticoagulant for a month as a risk from drug outweighs the benefit. May contact his specialist icu at [place] or covering [facility] specialist icu for unforseen cardiac emergency over the weekend as I am out. Thank you
[2017-04-11] MEDS: CITALOPRAM 20 MG TABLET PO SCH (21:48)
[2017-04-11] MEDS: SIMVASTATIN 20 MG TABLET PO SCH (21:48)
[2017-04-12] MEDS: BuPROPion IR 75 MG TABLET PO SCH ×2 (08:39→21:46)
[2017-04-12] MEDS: FERROUS SULFATE 324 MG TABLET PO SCH (08:40)
[2017-04-12] MEDS: ASCORBIC ACID 500 MG TABLET PO SCH (08:40)
[2017-04-12] MEDS: MIDODRINE 10 MG TABLET PO SCH ×3 (08:40→15:47)
[2017-04-12] MEDS: PANTOPRAZOLE 40 MG INJECTION IVP SCH (08:40)
[2017-04-12] MEDS: SALINE FLUSH 10ml SYRINGE IV PRN ×3 (08:40→21:46)
--- NOTE | 2017-04-12 11:30 | Progress Note ---
<Polly Monroy V - Last Filed: 04/12/17 11:18> Subjective: Magdaleno is seen this morning in follow up. He is laying in bed and reports he continues to be worn out and generally fatigued. BP remains 90-100 systolic. He reports that when sitting up on the edge of the bed he does continue to have intermittent lightheadedness that resolves when laying supine. Denies chest pain , shortness of breath or GI complaints. No melena present. Appetite is improving. Objective Vital signs: Temperature 97.6 F 04/12/17 07:38 Pulse Rate 87 04/12/17 07:38 Respiratory Rate 18 04/12/17 07:38 Blood Pressure 96/68 04/12/17 07:38 Pulse Oximetry 97 04/12/17 07:38 Height/Weight/BMI: Height 1.8 m Weight 79.2 kg Body Mass Index 24.0 - Constitutional Present: no acute distress, well nourished, well developed - Routine HEENT Exam Eye: Present: EOMI ENT: Present: mucous membranes moist, dentition normal - Routine Respiratory Exam Present: CTA bilaterally. Absent: wheezes - Routine Cardiovascular Exam Present: RRR, S1, S2. Absent: murmur - Routine Abdominal Exam Present: soft, normoactive bowel sounds, non distended. Absent: tenderness - Routine Extremities Exam Present: normal capillary refill - Routine Back/Spine/Pelvis Exam Back/Spine: Present: full ROM - Routine Skin Exam Present: dry, warm - Routine Neurological Exam Present: alert, oriented X3, vision grossly intact, hearing grossly intact - Routine Lymphatic Exam Lymphatic: Absent: adenopathy - Routine Psychiatric Exam Present: normal affect, normal thought process Results - Labs CBC & Chem 7: 04/12/17 10:47 04/11/17 04:15 Assessment and Plan Assessment and Plan: Impression Anemia secondary to acute GI blood loss 04/09: Transfused total of 2 units pRBC 04/10: Transfused total of 1 unit pRBC 04/11: Transfused 1 unit pRBC GI Bleed, acute S/P aortic and mitral valve replacement (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 Suspect he continues to be orthostatic. Continue on Midodrine- Times changed to 07,11,15 dosing. Continue to follow Hgb closely. He did receive transfusion yesterday 04/11. Goal Hgb is around 10 given extensive cardiovascular comorbidities. No evidence of active bleeding. Obviously will continue to hold Coumadin. He does continue to require IV Rocephin daily for prison treatment of Endocarditis. End dose 05/10/17. Overall weakness and debility related extensive medical conditions over the past month. Hopeful to return to IRU once medically stable for strengthening. He resides independently at home and has been very active prior to this event. Sepsis Assessment - Evaluation Sepsis screening result: No Definite Risk Hospital Course Summary Disclaimer: The visit summary below is not to be considered part of the above Progress Note. Hospital Course: 04/09/17 15:02 Assessment/Plan: GI Bleed, acute. * Mr. Blacmkan was transferred from IRU to ICU in light of hemodynamic deterioration for closer respiratory and cardiac monitoring and continued care. * + fecal hemoccult on 04/08. Hemoglobin trending down at 6.1 this AM. Patient given 1 unit PRBC with improvement of hemoglobin to 6.6. Will given additional 1 unit PRBC and recheck H&H. Continue to monitor blood counts closely and monitor closely for signs of bleeding. * Dr. Denis was consulted for evaluation of possible endoscopy once stabilized. Appreciate his time and expertise. Clear liquid diet in light of acute bleed. * Initiate NS 100cc/hr for fluid resuscitation and monitor closely for signs of fluid overload and respiratory symptoms. CXR on 04/09 revealed decreased pleural effusion and improvement in aeration of left lower lung. Encourage incentive spirometry. * Initiate Protonix 40mg IV BID for GI protection and GERD. * Acute elevation in BUN to 45 most likely secondary to blood loss with SCr stable at 1.1. Recheck BMP in AM to monitor electrolytes and renal function. Monitor urinary output closely in light of recent acute kidney injury while hospitalized at [facility]. 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 * Patient seen and evaluated by Dr. Adame while in IRU. Appreciate his time and expertise. Echocardiogram obtained on 04/08 with results pending to ensure hemoglobin decrease was not related to bleeding from recent surgery in chest. * Patient remains on Rocephin 2g IV for antimicrobial coverage following valve replacement. Treatment to be continued a total duration of 8 weeks and to be complete on 05/10/17. Monitor closely on telemetry Orthostatic hypotension, acute. Appears to be related to acute blood loss, although underlying autonomic neuropathy associated with diabetes may be present as well. * Monitor blood pressure closely. Blood pressure initially 77/56 prior to transfer from IRU. Following 1 unit PRBC, blood pressure improved to 92/64. Continue to hold home blood pressure medications. Continue to give midodrine TID. History of hypertension, chronic. * Hold home medications in light of hypotension including beta-cassi, MANNY, lasix. Type II Diabetes, chronic. * Blood sugars well controlled in IRU following decrease of home metformin to 500mg BID. Continue to hold glyburide in light of decreased oral intake and prior episodes of hypoglycemia. Monitor closely for hypoglycemia. Atrial fibrillation with pacemaker, chronic. * Monitor closely on telemetry. Anticoagulation currently on hold in light of acute GI bleed. SCDs for DVT prophylaxis. Chronic anticoagulation. * Coumadin recommended for 30 days following tissue valve replacement. INR this AM was 5.03. Patient was given 2mg Vit. K and 1 unit PRBC. INR decreased to 3.08. Will give an additional 2mg Vit. K and an additional 1 unit PRBC now and repeat H&H and INR following transfusion. Monitor closely for signs of bleeding. GERD, chronic. * Initiate Protonix 40mg IV BID for acute GI bleed and GI protection. Anxiety, chronic. * Continue home Wellbutrin. Urinary retention, acute. * Maintain Guzmán catheter. Dr. Palomo was previously consulted regarding his retention and recommended alpha-cassi which was held in light of hypotension. Consider bladder retraining in near future once hemoglobin and GI bleed are stabilized. Upon discharge, patient's care will be returned to his PCP. 04/09/17 21:41 I agree current supportive measures. The coagulation to remain off. Blood transfusion is reasonable. I'll see the patient follow-up tomorrow. Continue ProAmatine . 04/12/17 11:30 Overall doing ok however remains fatigued. Will watch for orthostasis. Changed Midodrine dosing times to 07,11,15. Continue to follow Hgb closely. <Ana Leach - Last Filed: 04/12/17 18:36> Objective Vital signs: Temperature 95.5 F L 04/12/17 15:47 Pulse Rate 82 04/12/17 16:00 Respiratory Rate 18 04/12/17 15:47 Blood Pressure 92/65 04/12/17 15:47 Pulse Oximetry 97 04/12/17 15:47 Height/Weight/BMI: Height 1.8 m Weight 79.2 kg Body Mass Index 24.0 Results - Labs CBC & Chem 7: 04/12/17 10:47 04/11/17 04:15 Assessment and Plan Assessment and Plan: I have independently evaluated and examined this patient. I reviewed the chart, the patient's history, and the CONTINUOUS PROCESS COFFEE ROASTER/PA's documented findings as above. We discussed and formulated the assessment and plan as above with additions as below: Mr. Blackman looks much better than when last seen. He reports he hasn't had a bowel movement in a couple of days and specifically denies melena or rectal bleeding. He denied lightheadedness when he stood this morning and nursing reports minimal orthostatic drop (supine 100/79, standing 97/75), and denies chest pain or dyspnea. Generalized pallor persists but the patient is alert and comfortable seated in a chair. Respirations are nonlabored, cardiac rhythm regular Hemoglobin stable at 10.2. Convert to oral PPI. Will discuss need to consider re-anticoagulating with cardiology early next week. Minor metabolic acidosis noted-reassess electrolytes in a.m. Corrective insulin ordered, if renal function stable will resume metformin tomorrow as beginning to develop hyperglycemia. Telemetry reviewed-paced rhythm. Reevaluate for IRU. Hospital Course Summary Disclaimer: The visit summary below is not to be considered part of the above Progress Note.
[2017-04-12] MEDS: POLYETHYL GLYCOL 3350 17gm PACKET PO PRN (13:50)
--- NOTE | 2017-04-12 14:41 | Progress Note ---
DATE OF SERVICE 04/12/2017 FINDINGS The patient today was without complaints. States he is feeling somewhat tired. EXAM VITAL SIGNS: Afebrile, normotensive. Current vitals include temperature 97.6, pulse 87, respirations 18, blood pressure 97/55. EXAM CHEST: Clear to auscultation bilaterally. HEART: Regular rate and rhythm. Normal S1 and S2 without gallops, murmurs or clicks. ABDOMEN: Palpation of the abdomen reveals it to be soft and nontender. I do not appreciate any evidence for hepatosplenomegaly or other abnormal masses. LABORATORY/RADIOGRAPHIC EVALUATION The patient's hemoglobin remains stable at 10.2. ASSESSMENT 71-year-old gentleman with multiple medical comorbidities who had recent development of progressive anemia in conjunction with supratherapeutic coumadinization. The patient's hemoglobin is currently stable. PLAN Will go ahead and sign off the patient's care at this point in time. Would not recommend any type of endoscopic evaluation, given his stabilization. Please contact me in the future if further surgical care needed. SERA
[2017-04-12] MEDS: CEFTRIAXONE 2 GM in NS 100 ML IV SCH (15:46)
[2017-04-12] MEDS ORDERED: ACETAMINOPHEN 325 MG TABLET PO PRN (18:32)
[2017-04-12] MEDS ORDERED: PANTOPRAZOLE 20 MG TABLET PO SCH (18:45)
[2017-04-12] MEDS: PANTOPRAZOLE 40 MG TABLET PO SCH (18:56)
[2017-04-12] MEDS: SIMVASTATIN 20 MG TABLET PO SCH (21:46)
[2017-04-12] MEDS: CITALOPRAM 20 MG TABLET PO SCH (21:46)
[2017-04-13] MEDS: PANTOPRAZOLE 40 MG TABLET PO SCH ×2 (06:44→16:31)
[2017-04-13] MEDS: MIDODRINE 10 MG TABLET PO SCH ×3 (07:51→15:54)
[2017-04-13] MEDS: BuPROPion IR 75 MG TABLET PO SCH ×2 (08:47→22:01)
[2017-04-13] MEDS: POLYETHYL GLYCOL 3350 17gm PACKET PO PRN (08:47)
[2017-04-13] MEDS: ASCORBIC ACID 500 MG TABLET PO SCH (08:47)
[2017-04-13] MEDS: SALINE FLUSH 10ml SYRINGE IV PRN ×3 (08:47→22:01)
[2017-04-13] MEDS: FERROUS SULFATE 324 MG TABLET PO SCH (08:47)
--- NOTE | 2017-04-13 12:17 | Progress Note ---
<Beena Hernandes - Last Filed: 04/13/17 12:14> Subjective: Magdaleno is seen in follow up. He is resting quietly, awakens easily. He reports feeling fairly well. No pain. reports eating well. Denies any bloody stools. No acute concerns. Chart reviewed for collateral information. Objective Vital signs: Temperature 96.5 F L 04/13/17 11:48 Pulse Rate 73 04/13/17 11:48 Respiratory Rate 16 04/13/17 11:48 Blood Pressure 104/69 04/13/17 11:48 Pulse Oximetry 97 04/13/17 11:48 Rhythm: Normal Sinus Rhythm Height/Weight/BMI: Height 1.8 m Weight 79.5 kg Body Mass Index 24.0 - Constitutional Present: no acute distress, well nourished, well developed, cooperative - Routine HEENT Exam Head: Present: normocephalic, atraumatic Eye: Present: EOMI, PERRL ENT: Present: mucous membranes moist - Routine Respiratory Exam Present: decreased breath sounds, CTA bilaterally. Absent: rales, rhonchi, wheezes, crackles - Routine Cardiovascular Exam Present: RRR, S1, S2, click - Routine Abdominal Exam Present: soft, normoactive bowel sounds, non distended, non tender - Routine Extremities Exam Present: no edema, non tender - Routine Musculoskeletal Exam Musculoskeletal: Present: no clubbing or cyanosis, normal strength, moving extremities well - Routine Skin Exam Present: intact, dry, pallor (Mildly pale), warm Comments: Sternal incision healing well. - Routine Neurological Exam Present: alert, moving all extremities - Routine Psychiatric Exam Present: normal affect, cooperative Results - Labs CBC & Chem 7: 04/13/17 03:59 04/13/17 03:59 Assessment and Plan (1) History of aortic valve replacement with bioprosthetic valve Current visit: No Status: Acute (2) History of mitral valve replacement with bioprosthetic valve Current visit: No Status: Acute (3) Acute blood loss anemia Current visit: No Status: Acute DVT Prophylaxis: SCD's, KISHORE Hose GI Prophylaxis: Protonix Resuscitation Status: Full Code Assessment and Plan: Impression Anemia secondary to acute GI blood loss 04/09: Transfused total of 2 units pRBC 04/10: Transfused total of 1 unit pRBC 04/11: Transfused 1 unit pRBC GI Bleed, acute S/P aortic and mitral valve replacement (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 Chart is reviewed. Both AVR and MVR are bioprosthetic- He was recommended to have anticoagulation for x 30 days post-op- Surgery date was 03/14/17. Intermittent Atrial fib was most compelling reason for anticoagulation. Dr. Adame's most recent recommendations are to avoid anticoagulation x 30 days (on 04/11/17). Continue rate control only at this time. Ceftriaxone through 05/10/17. He is afebrile. Continue PPI BID. His H.Pylori AB is markedly elevated, concerning for PUD. Dr. Denis's notes reviewed- Recommended empiric tx for PUD. Will start Clarithromycin 500mg PO BID and Flagyl 250mg QID in addition to PPI BID. (need to hold statin given reaction with clarithromycin) . BP is fairly stable- continue to monitor for orthostasis. Continues generally weak- potentially back to IRU for further strengthening. - Time spent with patient 25 - 35 minutes Sepsis Assessment - Evaluation Sepsis screening result: No Definite Risk Hospital Course Summary Disclaimer: The visit summary below is not to be considered part of the above Progress Note. Hospital Course: 04/09/17 15:02 Assessment/Plan: GI Bleed, acute. * Mr. Blackman was transferred from IRU to ICU in light of hemodynamic deterioration for closer respiratory and cardiac monitoring and continued care. * + fecal hemoccult on 04/08. Hemoglobin trending down at 6.1 this AM. Patient given 1 unit PRBC with improvement of hemoglobin to 6.6. Will given additional 1 unit PRBC and recheck H&H. Continue to monitor blood counts closely and monitor closely for signs of bleeding. * Dr. Denis was consulted for evaluation of possible endoscopy once stabilized. Appreciate his time and expertise. Clear liquid diet in light of acute bleed. * Initiate NS 100cc/hr for fluid resuscitation and monitor closely for signs of fluid overload and respiratory symptoms. CXR on 04/09 revealed decreased pleural effusion and improvement in aeration of left lower lung. Encourage incentive spirometry. * Initiate Protonix 40mg IV BID for GI protection and GERD. * Acute elevation in BUN to 45 most likely secondary to blood loss with SCr stable at 1.1. Recheck BMP in AM to monitor electrolytes and renal function. Monitor urinary output closely in light of recent acute kidney injury while hospitalized at [facility]. 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 * Patient seen and evaluated by Dr. Adame while in IRU. Appreciate his time and expertise. Echocardiogram obtained on 04/08 with results pending to ensure hemoglobin decrease was not related to bleeding from recent surgery in chest. * Patient remains on Rocephin 2g IV for antimicrobial coverage following valve replacement. Treatment to be continued a total duration of 8 weeks and to be complete on 05/10/17. Monitor closely on telemetry Orthostatic hypotension, acute. Appears to be related to acute blood loss, although underlying autonomic neuropathy associated with diabetes may be present as well. * Monitor blood pressure closely. Blood pressure initially 77/56 prior to transfer from IRU. Following 1 unit PRBC, blood pressure improved to 92/64. Continue to hold home blood pressure medications. Continue to give midodrine TID. History of hypertension, chronic. * Hold home medications in light of hypotension including beta-cassi, MANNY, lasix. Type II Diabetes, chronic. * Blood sugars well controlled in IRU following decrease of home metformin to 500mg BID. Continue to hold glyburide in light of decreased oral intake and prior episodes of hypoglycemia. Monitor closely for hypoglycemia. Atrial fibrillation with pacemaker, chronic. * Monitor closely on telemetry. Anticoagulation currently on hold in light of acute GI bleed. SCDs for DVT prophylaxis. Chronic anticoagulation. * Coumadin recommended for 30 days following tissue valve replacement. INR this AM was 5.03. Patient was given 2mg Vit. K and 1 unit PRBC. INR decreased to 3.08. Will give an additional 2mg Vit. K and an additional 1 unit PRBC now and repeat H&H and INR following transfusion. Monitor closely for signs of bleeding. GERD, chronic. * Initiate Protonix 40mg IV BID for acute GI bleed and GI protection. Anxiety, chronic. * Continue home Wellbutrin. Urinary retention, acute. * Maintain Guzmán catheter. Dr. Palomo was previously consulted regarding his retention and recommended alpha-cassi which was held in light of hypotension. Consider bladder retraining in near future once hemoglobin and GI bleed are stabilized. Upon discharge, patient's care will be returned to his PCP. 04/09/17 21:41 I agree current supportive measures. The coagulation to remain off. Blood transfusion is reasonable. I'll see the patient follow-up tomorrow. Continue ProAmatine . 04/12/17 11:30 Overall doing ok however remains fatigued. Will watch for orthostasis. Changed Midodrine dosing times to 07,11,15. Continue to follow Hgb closely. 04/13/17 12:32 HGB is current stable. Chart is reviewed. Both AVR and MVR are bioprosthetic- He was recommended to have anticoagulation for x 30 days post-op- Surgery date was 03/14/17. Intermittent Atrial fib was most compelling reason for anticoagulation. Dr. Adame's most recent recommendations are to avoid anticoagulation x 30 days (on 04/11/17). Continue rate control only at this time. Ceftriaxone for endocarditis through 05/10/17. He is afebrile. Continue PPI BID. His H.Pylori AB is markedly elevated, concerning for PUD. Dr. Denis's notes reviewed- Recommended empiric tx for PUD. Will start Clarithromycin 500mg PO BID and Flagyl 250mg QID in addition to PPI BID. (need to hold statin given reaction with clarithromycin) . BP is fairly stable- continue to monitor for orthostasis. Continues generally weak- potentially back to IRU for further strengthening. <Ana Leach - Last Filed: 04/13/17 15:27> Objective Vital signs: Temperature 97.9 F 04/13/17 12:14 Pulse Rate 84 04/13/17 12:14 Respiratory Rate 16 04/13/17 12:14 Blood Pressure 111/71 04/13/17 12:14 Pulse Oximetry 97 04/13/17 12:14 Height/Weight/BMI: Height 1.8 m Weight 79.5 kg Body Mass Index 24.0 Results - Labs CBC & Chem 7: 04/13/17 03:59 04/13/17 03:59 Assessment and Plan (1) Acute blood loss anemia Current visit: No Status: Acute (2) History of mitral valve replacement with bioprosthetic valve Current visit: No Status: Acute (3) History of aortic valve replacement with bioprosthetic valve Current visit: No Status: Acute Assessment and Plan: I have independently evaluated and examined this patient. I reviewed the chart, the patient's history, and the TELEPHONE CLERKS SUPERVISOR/PA's documented findings as above. We discussed and formulated the assessment and plan as above with additions as below: Mr. Blackman was seen ambulating in the halls earlier today. He denies lightheadedness or dizziness and reports no dyspnea or chest pain. He's had no further melanotic or bloody stools. He denies indigestion, heartburn, or nausea. Telemetry reviewed-typically paced rhythm with bundle branch block, occasional atrial fibrillation. NAD, alert; Respirations nonlabored with clear breath sounds Regular rhythm, S1-S2 Positive H pylori noted; treatment initiated. Hemoglobin stable. Patient inquired about Guzmán catheter and resuming medication to help with bladder function-prior trials led to marked orthostasis. I'm not aware of additional medications being considered but will readdress with urology when available later in the week. Blood sugars remain elevated postprandially-switched from regular to carb controlled diet, reassess need for metformin over the next couple of days. Hospital Course Summary Disclaimer: The visit summary below is not to be considered part of the above Progress Note.
[2017-04-13] MEDS ORDERED: PROCHLORPERAZINE 10 MG TABLET PO PRN (12:31)
[2017-04-13] MEDS: INSULIN ASPART 100unit/ml INJECTION SQ PRN ×2 (14:46→22:19)
[2017-04-13] MEDS: CEFTRIAXONE 2 GM in NS 100 ML IV SCH (15:54)
[2017-04-13] MEDS: NS FLUSH BAG 500ml IV PRN (16:32)
[2017-04-13] MEDS: CLARITHROMYCIN 500 MG TABLET PO SCH (17:57)
[2017-04-13] MEDS: MetroNIDAZOLE 250 MG TABLET PO SCH ×2 (17:57→22:01)
[2017-04-13] MEDS: CITALOPRAM 20 MG TABLET PO SCH (22:01)
[2017-04-14] MEDS: SALINE FLUSH 10ml SYRINGE IV PRN ×4 (04:18→22:03)
[2017-04-14] MEDS: PANTOPRAZOLE 40 MG TABLET PO SCH ×2 (06:21→17:38)
[2017-04-14] MEDS: BuPROPion IR 75 MG TABLET PO SCH ×2 (09:18→22:03)
[2017-04-14] MEDS: MetroNIDAZOLE 250 MG TABLET PO SCH ×2 (09:18→12:53)
[2017-04-14] MEDS: CLARITHROMYCIN 500 MG TABLET PO SCH ×2 (09:18→17:38)
[2017-04-14] MEDS: ASCORBIC ACID 500 MG TABLET PO SCH (09:19)
[2017-04-14] MEDS: MIDODRINE 10 MG TABLET PO SCH ×3 (09:19→16:44)
[2017-04-14] MEDS: FERROUS SULFATE 324 MG TABLET PO SCH (09:19)
--- NOTE | 2017-04-14 11:48 | Progress Note ---
<Polly Monroy V - Last Filed: 04/14/17 11:45> Subjective: Magdaleno is seen today in follow up. He is laying in bed resting and complains of feeling tired. He denies having any pain or feeling short of breath. Appetite is improving and he ate 100 %of breakfast this morning. He did ambulate in the [place] and reports that toward the end he was feeling lightheaded. Standing blood pressure this morning was 91/60. Staff reports a black stool yesterday. Objective Vital signs: Temperature 95.6 F L 04/14/17 11:12 Pulse Rate 89 04/14/17 11:12 Respiratory Rate 18 04/14/17 11:12 Blood Pressure 104/73 04/14/17 11:12 Pulse Oximetry 96 04/14/17 11:12 Height/Weight/BMI: Height 1.8 m Weight 79.8 kg Body Mass Index 24.0 - Constitutional Present: no acute distress, well nourished, well developed - Routine HEENT Exam Eye: Present: EOMI ENT: Present: mucous membranes moist, dentition normal - Routine Respiratory Exam Present: CTA bilaterally. Absent: wheezes - Routine Cardiovascular Exam Present: RRR, S1, S2. Absent: murmur - Routine Abdominal Exam Present: soft, normoactive bowel sounds, non distended. Absent: tenderness - Routine Extremities Exam Present: normal capillary refill - Routine Skin Exam Present: dry, warm - Routine Neurological Exam Present: alert, oriented X3, CN II-XII intact - Routine Lymphatic Exam Lymphatic: Absent: adenopathy - Routine Psychiatric Exam Present: normal affect Results - Labs CBC & Chem 7: 04/14/17 04:16 04/14/17 04:16 Assessment and Plan (1) History of mitral valve replacement with bioprosthetic valve Current visit: No Status: Acute (2) History of aortic valve replacement with bioprosthetic valve Current visit: No Status: Acute (3) Acute blood loss anemia Current visit: No Status: Acute Assessment and Plan: Impression Anemia secondary to acute GI blood loss 04/09: Transfused total of 2 units pRBC 04/10: Transfused total of 1 unit pRBC 04/11: Transfused 1 unit pRBC GI Bleed, acute S/P aortic and mitral valve replacement (bioprosthetic valves) 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 Continue with treatment for H. pylori- Biaxin, Flagyl and PPI. Statin on hold as it will react with Biaxin. Continue Rocephin through 05/10 for ongoing tx of endocarditis Continue to monitor blood sugars, Currently on Metformin. FBS today 75. Hemoglobin remained stable, 10.2. Monitor stools, nursing reported black stool yesterday which is likely related to iron intake. IRU screen placed, He is hopeful to gain strength and be able to return home independently. Sepsis Assessment - Evaluation Sepsis screening result: No Definite Risk Hospital Course Summary Disclaimer: The visit summary below is not to be considered part of the above Progress Note. Hospital Course: 04/09/17 15:02 Assessment/Plan: GI Bleed, acute. * Mr. Blackman was transferred from IRU to ICU in light of hemodynamic deterioration for closer respiratory and cardiac monitoring and continued care. * + fecal hemoccult on 04/08. Hemoglobin trending down at 6.1 this AM. Patient given 1 unit PRBC with improvement of hemoglobin to 6.6. Will given additional 1 unit PRBC and recheck H&H. Continue to monitor blood counts closely and monitor closely for signs of bleeding. * Dr. Denis was consulted for evaluation of possible endoscopy once stabilized. Appreciate his time and expertise. Clear liquid diet in light of acute bleed. * Initiate NS 100cc/hr for fluid resuscitation and monitor closely for signs of fluid overload and respiratory symptoms. CXR on 04/09 revealed decreased pleural effusion and improvement in aeration of left lower lung. Encourage incentive spirometry. * Initiate Protonix 40mg IV BID for GI protection and GERD. * Acute elevation in BUN to 45 most likely secondary to blood loss with SCr stable at 1.1. Recheck BMP in AM to monitor electrolytes and renal function. Monitor urinary output closely in light of recent acute kidney injury while hospitalized at [place]. 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 * Patient seen and evaluated by Dr. Adame while in IRU. Appreciate his time and expertise. Echocardiogram obtained on 04/08 with results pending to ensure hemoglobin decrease was not related to bleeding from recent surgery in chest. * Patient remains on Rocephin 2g IV for antimicrobial coverage following valve replacement. Treatment to be continued a total duration of 8 weeks and to be complete on 05/10/17. Monitor closely on telemetry Orthostatic hypotension, acute. Appears to be related to acute blood loss, although underlying autonomic neuropathy associated with diabetes may be present as well. * Monitor blood pressure closely. Blood pressure initially 77/56 prior to transfer from IRU. Following 1 unit PRBC, blood pressure improved to 92/64. Continue to hold home blood pressure medications. Continue to give midodrine TID. History of hypertension, chronic. * Hold home medications in light of hypotension including beta-cassi, MANNY, lasix. Type II Diabetes, chronic. * Blood sugars well controlled in IRU following decrease of home metformin to 500mg BID. Continue to hold glyburide in light of decreased oral intake and prior episodes of hypoglycemia. Monitor closely for hypoglycemia. Atrial fibrillation with pacemaker, chronic. * Monitor closely on telemetry. Anticoagulation currently on hold in light of acute GI bleed. SCDs for DVT prophylaxis. Chronic anticoagulation. * Coumadin recommended for 30 days following tissue valve replacement. INR this AM was 5.03. Patient was given 2mg Vit. K and 1 unit PRBC. INR decreased to 3.08. Will give an additional 2mg Vit. K and an additional 1 unit PRBC now and repeat H&H and INR following transfusion. Monitor closely for signs of bleeding. GERD, chronic. * Initiate Protonix 40mg IV BID for acute GI bleed and GI protection. Anxiety, chronic. * Continue home Wellbutrin. Urinary retention, acute. * Maintain Guzmán catheter. Dr. Palomo was previously consulted regarding his retention and recommended alpha-cassi which was held in light of hypotension. Consider bladder retraining in near future once hemoglobin and GI bleed are stabilized. Upon discharge, patient's care will be returned to his PCP. 04/09/17 21:41 I agree current supportive measures. The coagulation to remain off. Blood transfusion is reasonable. I'll see the patient follow-up tomorrow. Continue ProAmatine . 04/12/17 11:30 Overall doing ok however remains fatigued. Will watch for orthostasis. Changed Midodrine dosing times to 07,11,15. Continue to follow Hgb closely. 04/13/17 12:32 HGB is current stable. Chart is reviewed. Both AVR and MVR are bioprosthetic- He was recommended to have anticoagulation for x 30 days post-op- Surgery date was 03/14/17. Intermittent Atrial fib was most compelling reason for anticoagulation. Dr. Adame's most recent recommendations are to avoid anticoagulation x 30 days (on 04/11/17). Continue rate control only at this time. Ceftriaxone for endocarditis through 05/10/17. He is afebrile. Continue PPI BID. His H.Pylori AB is markedly elevated, concerning for PUD. Dr. Denis's notes reviewed- Recommended empiric tx for PUD. Will start Clarithromycin 500mg PO BID and Flagyl 250mg QID in addition to PPI BID. (need to hold statin given reaction with clarithromycin) . BP is fairly stable- continue to monitor for orthostasis. Continues generally weak- potentially back to IRU for further strengthening. 04/14-Plan Overall Magdaleno is feeling good. Continue with treatment for H. pylori- Biaxin, Flagyl and PPI. Statin on hold as it will react with Biaxin. Continue Rocephin through 05/10 for ongoing tx of endocarditis Continue to monitor blood sugars, Currently on Metformin. FBS today 75. Hemoglobin remained stable, 10.2. Monitor stools, nursing reported black stool yesterday which is likely related to iron intake. IRU screen placed, He is hopeful to gain strength and be able to return home independently. <Ana Leach - Last Filed: 04/14/17 15:03> Objective Vital signs: Temperature 95.6 F L 04/14/17 11:12 Pulse Rate 89 04/14/17 11:12 Respiratory Rate 18 04/14/17 11:12 Blood Pressure 104/73 04/14/17 11:12 Pulse Oximetry 96 04/14/17 11:12 Height/Weight/BMI: Height 1.8 m Weight 79.8 kg Body Mass Index 24.0 Results - Labs CBC & Chem 7: 04/14/17 04:16 04/14/17 04:16 Assessment and Plan (1) Acute blood loss anemia Current visit: No Status: Acute (2) History of mitral valve replacement with bioprosthetic valve Current visit: No Status: Acute (3) History of aortic valve replacement with bioprosthetic valve Current visit: No Status: Acute Assessment and Plan: I have independently evaluated and examined this patient. I reviewed the chart, the patient's history, and the REGISTERED ACCOUNT ADMINISTRATOR/PA's documented findings as above. We discussed and formulated the assessment and plan as above with additions as below: Mr. Blackman continues to improve. He denied lightheadedness when seen and reports no dyspnea, palpitations, or chest pain. Nursing reports formed black stools and hemoglobin is stable. NAD, alert Regular rhythm; respirations nonlabored with clear breath sounds Telemetry reviewed-paced with episodic atrial fibrillation Hemoglobin stable however platelet count has dropped from 232 on 04/07 to a current value of 115. Discontinue heparin flushs; saline flush only. Blood pressures remained stable, consider reintroducing Uroxatral for urinary retention after antibiotic course completed-drug interaction between Biaxin and Uroxatral precludes initiating now. Metronidazole switched to 500 mg 3 times daily. Hospital Course Summary Disclaimer: The visit summary below is not to be considered part of the above Progress Note.
[2017-04-14] MEDS ORDERED: MetroNIDAZOLE 250 MG TABLET PO SCH (15:02)
[2017-04-14] MEDS: CEFTRIAXONE 2 GM in NS 100 ML IV SCH (16:44)
[2017-04-14] MEDS: NS FLUSH BAG 500ml IV PRN (16:46)
[2017-04-14] MEDS: INSULIN ASPART 100unit/ml INJECTION SQ PRN (17:39)
[2017-04-14] MEDS: MetroNIDAZOLE 500 MG TABLET PO SCH (22:03)
[2017-04-14] MEDS: CITALOPRAM 20 MG TABLET PO SCH (22:03)
[2017-04-15] MEDS ORDERED: NS 1,000 ML IV ONE (04:28)
[2017-04-15] MEDS: MIDODRINE 10 MG TABLET PO SCH ×3 (06:34→16:08)
[2017-04-15] MEDS: PANTOPRAZOLE 40 MG TABLET PO SCH ×2 (06:34→18:29)
[2017-04-15] MEDS: BuPROPion IR 75 MG TABLET PO SCH ×2 (11:24→20:53)
[2017-04-15] MEDS: MetroNIDAZOLE 500 MG TABLET PO SCH ×3 (11:24→20:53)
[2017-04-15] MEDS: FERROUS SULFATE 324 MG TABLET PO SCH (11:24)
[2017-04-15] MEDS: CLARITHROMYCIN 500 MG TABLET PO SCH ×2 (11:24→18:29)
[2017-04-15] MEDS: ASCORBIC ACID 500 MG TABLET PO SCH (11:25)
--- NOTE | 2017-04-15 11:43 | Progress Note ---
<Polly Monroy V - Last Filed: 04/15/17 11:34> Subjective: Magdaleno is seen this morning following sleeping in. He states that he is tired this morning because staff kept him up during the night. Blood pressure at 4 a.m. this morning was 85/66. Patient was given a liter fluid for hydration, and blood pressure improved to 98/73. There is a later blood pressure charted at 77/ 63, suspect this is when patient was lying on his side. Denies feeling lightheaded currently. Objective Vital signs: Temperature 95.8 F L 04/15/17 07:35 Pulse Rate 95 04/15/17 07:39 Respiratory Rate 18 04/15/17 07:35 Blood Pressure 77/63 04/15/17 07:39 Pulse Oximetry 98 04/15/17 07:35 Height/Weight/BMI: Height 1.8 m Weight 80.1 kg Body Mass Index 24.0 - Constitutional Present: no acute distress, well nourished, well developed - Routine HEENT Exam Eye: Present: EOMI ENT: Present: mucous membranes moist, dentition normal - Routine Respiratory Exam Present: CTA bilaterally. Absent: wheezes - Routine Cardiovascular Exam Present: RRR, S1, S2. Absent: murmur - Routine Abdominal Exam Present: soft, normoactive bowel sounds, non distended. Absent: tenderness - Routine Extremities Exam Present: normal capillary refill - Routine Back/Spine/Pelvis Exam Back/Spine: Present: full ROM - Routine Skin Exam Present: dry, warm - Routine Neurological Exam Present: alert, oriented X3, CN II-XII intact - Routine Lymphatic Exam Lymphatic: Absent: adenopathy - Routine Psychiatric Exam Present: normal affect Results - Labs CBC & Chem 7: 04/15/17 03:48 04/14/17 04:16 Assessment and Plan (1) History of mitral valve replacement with bioprosthetic valve Current visit: No Status: Acute (2) History of aortic valve replacement with bioprosthetic valve Current visit: No Status: Acute (3) Acute blood loss anemia Current visit: No Status: Acute Assessment and Plan: Impression- Anemia secondary to acute GI blood loss 04/09: Transfused total of 2 units pRBC 04/10: Transfused total of 1 unit pRBC 04/11: Transfused 1 unit pRBC GI Bleed, acute S/P aortic and mitral valve replacement (bioprosthetic valves) 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 Plt today is 108. D/c heparin. Continue with treatment for H. pylori, clarithromycin, Flagyl and PPI. Continue with IV Rocephin daily through , ongoing treatment of endocarditis. Blood pressures appear to be well controlled. Awaiting to hear from IRU for possible transfer later today. Sepsis Assessment - Evaluation Sepsis screening result: No Definite Risk Hospital Course Summary Disclaimer: The visit summary below is not to be considered part of the above Progress Note. Hospital Course: 04/09/17 15:02 Assessment/Plan: GI Bleed, acute. * Mr. Blackman was transferred from IRU to ICU in light of hemodynamic deterioration for closer respiratory and cardiac monitoring and continued care. * + fecal hemoccult on 04/08. Hemoglobin trending down at 6.1 this AM. Patient given 1 unit PRBC with improvement of hemoglobin to 6.6. Will given additional 1 unit PRBC and recheck H&H. Continue to monitor blood counts closely and monitor closely for signs of bleeding. * Dr. Denis was consulted for evaluation of possible endoscopy once stabilized. Appreciate his time and expertise. Clear liquid diet in light of acute bleed. * Initiate NS 100cc/hr for fluid resuscitation and monitor closely for signs of fluid overload and respiratory symptoms. CXR on 04/09 revealed decreased pleural effusion and improvement in aeration of left lower lung. Encourage incentive spirometry. * Initiate Protonix 40mg IV BID for GI protection and GERD. * Acute elevation in BUN to 45 most likely secondary to blood loss with SCr stable at 1.1. Recheck BMP in AM to monitor electrolytes and renal function. Monitor urinary output closely in light of recent acute kidney injury while hospitalized at [place]. 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 * Patient seen and evaluated by Dr. Adame while in IRU. Appreciate his time and expertise. Echocardiogram obtained on 04/08 with results pending to ensure hemoglobin decrease was not related to bleeding from recent surgery in chest. * Patient remains on Rocephin 2g IV for antimicrobial coverage following valve replacement. Treatment to be continued a total duration of 8 weeks and to be complete on 05/10/17. Monitor closely on telemetry Orthostatic hypotension, acute. Appears to be related to acute blood loss, although underlying autonomic neuropathy associated with diabetes may be present as well. * Monitor blood pressure closely. Blood pressure initially 77/56 prior to transfer from IRU. Following 1 unit PRBC, blood pressure improved to 92/64. Continue to hold home blood pressure medications. Continue to give midodrine TID. History of hypertension, chronic. * Hold home medications in light of hypotension including beta-cassi, MANNY, lasix. Type II Diabetes, chronic. * Blood sugars well controlled in IRU following decrease of home metformin to 500mg BID. Continue to hold glyburide in light of decreased oral intake and prior episodes of hypoglycemia. Monitor closely for hypoglycemia. Atrial fibrillation with pacemaker, chronic. * Monitor closely on telemetry. Anticoagulation currently on hold in light of acute GI bleed. SCDs for DVT prophylaxis. Chronic anticoagulation. * Coumadin recommended for 30 days following tissue valve replacement. INR this AM was 5.03. Patient was given 2mg Vit. K and 1 unit PRBC. INR decreased to 3.08. Will give an additional 2mg Vit. K and an additional 1 unit PRBC now and repeat H&H and INR following transfusion. Monitor closely for signs of bleeding. GERD, chronic. * Initiate Protonix 40mg IV BID for acute GI bleed and GI protection. Anxiety, chronic. * Continue home Wellbutrin. Urinary retention, acute. * Maintain Guzmán catheter. Dr. Palomo was previously consulted regarding his retention and recommended alpha-cassi which was held in light of hypotension. Consider bladder retraining in near future once hemoglobin and GI bleed are stabilized. Upon discharge, patient's care will be returned to his PCP. 04/09/17 21:41 I agree current supportive measures. The coagulation to remain off. Blood transfusion is reasonable. I'll see the patient follow-up tomorrow. Continue ProAmatine . 04/12/17 11:30 Overall doing ok however remains fatigued. Will watch for orthostasis. Changed Midodrine dosing times to 07,11,15. Continue to follow Hgb closely. 04/13/17 12:32 HGB is current stable. Chart is reviewed. Both AVR and MVR are bioprosthetic- He was recommended to have anticoagulation for x 30 days post-op- Surgery date was 03/14/17. Intermittent Atrial fib was most compelling reason for anticoagulation. Dr. Adame's most recent recommendations are to avoid anticoagulation x 30 days (on 04/11/17). Continue rate control only at this time. Ceftriaxone for endocarditis through 05/10/17. He is afebrile. Continue PPI BID. His H.Pylori AB is markedly elevated, concerning for PUD. Dr. Denis's notes reviewed- Recommended empiric tx for PUD. Will start Clarithromycin 500mg PO BID and Flagyl 250mg QID in addition to PPI BID. (need to hold statin given reaction with clarithromycin) . BP is fairly stable- continue to monitor for orthostasis. Continues generally weak- potentially back to IRU for further strengthening. 04/14-Plan Overall Magdaleno is feeling good. Continue with treatment for H. pylori- Biaxin, Flagyl and PPI. Statin on hold as it will react with Biaxin. Continue Rocephin through 05/10 for ongoing tx of endocarditis Continue to monitor blood sugars, Currently on Metformin. FBS today 75. Hemoglobin remained stable, 10.2. Monitor stools, nursing reported black stool yesterday which is likely related to iron intake. IRU screen placed, He is hopeful to gain strength and be able to return home independently. 04/15-plan Thrombocytopenia appears to be persistent. Plt today is 108. D/c heparin. Continue with treatment for H. pylori, clarithromycin, Flagyl and PPI. Continue with IV Rocephin daily through , ongoing treatment of endocarditis. Blood pressures appear to be well controlled. Awaiting to hear from IRU for possible transfer later today. <Ana Leach - Last Filed: 04/15/17 15:56> Objective Vital signs: Temperature 95.7 F L 04/15/17 15:00 Pulse Rate 97 04/15/17 15:00 Respiratory Rate 18 04/15/17 15:00 Blood Pressure 106/78 04/15/17 15:00 Pulse Oximetry 98 04/15/17 15:00 Height/Weight/BMI: Height 1.8 m Weight 80.1 kg Body Mass Index 24.0 Results - Labs CBC & Chem 7: 04/15/17 03:48 04/14/17 04:16 Assessment and Plan (1) Acute blood loss anemia Current visit: No Status: Acute (2) History of mitral valve replacement with bioprosthetic valve Current visit: No Status: Acute (3) History of aortic valve replacement with bioprosthetic valve Current visit: No Status: Acute Assessment and Plan: I have independently evaluated and examined this patient. I reviewed the chart, the patient's history, and the PRODUCTION MATERIAL HANDLER/PA's documented findings as above. We discussed and formulated the assessment and plan as above with additions as below: Mr. Blackman continues to do well other than intermittent low blood pressures. He notes that he was symptomatic with a cold sweat earlier today when blood pressure was low and again expressed concern that when physical therapy makes him work too hard his blood pressure drops. He enjoys walking and feels good ambulating. He is now ambulating very well and exceeds needs to return to IRU. IV fluids were blistered earlier today for hypotension patient denies dyspnea. Respirations are nonlabored, air flow is good and breath sounds are clear. Cardiac rhythm is regular with low-grade tachycardia KISHORE hose on, no peripheral edema Platelets 108, hemoglobin stable. Scheduled continue ceftriaxone 2 g daily through 05/10 for Strep-SBE; HIT pending but ceftriaxone may be causative with suspect thrombocytopenia. Will discuss with Dr. Bautista. Monitor blood pressure for stability overnight; hemodynamic instability preceded GI bleed prior to transfer from IRU. Hospital Course Summary Disclaimer: The visit summary below is not to be considered part of the above Progress Note.
[2017-04-15 15:26] VITALS: O2SAT 98
[2017-04-15] MEDS: CEFTRIAXONE 2 GM in NS 100 ML IV SCH (16:03)
[2017-04-15] MEDS: INSULIN ASPART 100unit/ml INJECTION SQ PRN (20:53)
[2017-04-15] MEDS: CITALOPRAM 20 MG TABLET PO SCH (20:53)
[2017-04-15] MEDS: SALINE FLUSH 10ml SYRINGE IV PRN (20:53)
[2017-04-16 04:01] VITALS: TEMP 97.1
[2017-04-16] MEDS: MIDODRINE 10 MG TABLET PO SCH ×3 (06:17→15:05)
[2017-04-16] MEDS: SALINE FLUSH 10ml SYRINGE IV PRN (06:17)
[2017-04-16] MEDS: PANTOPRAZOLE 40 MG TABLET PO SCH (06:17)
[2017-04-16 07:51] VITALS: RESP 16
[2017-04-16 07:56] VITALS: BP 128/81
[2017-04-16] MEDS: FERROUS SULFATE 324 MG TABLET PO SCH (08:23)
[2017-04-16] MEDS: CLARITHROMYCIN 500 MG TABLET PO SCH (08:23)
[2017-04-16] MEDS: MetroNIDAZOLE 500 MG TABLET PO SCH ×2 (08:24→15:05)
[2017-04-16] MEDS: BuPROPion IR 75 MG TABLET PO SCH (08:24)
[2017-04-16] MEDS: ASCORBIC ACID 500 MG TABLET PO SCH (08:24)
[2017-04-16 10:48] VITALS: PULSE 79
--- NOTE | 2017-04-16 13:30 | Discharge Instructions ---
Discharge Plan - Med Rec/Dispo Referrals/Follow Up: Dami Mccoy MD [Physician] - (2016 at 4:00 pm ) Edith Castro MD [Physician] - (04/28/17- 1030am at [facility] in [place]) Bharat Instructions: Gastrointestinal Bleeding (GEN) Prescriptions: New Ascorbic Acid [Vitamin C] 500 mg PO WB tablet Bisacodyl Supp [Dulcolax] 10 mg RECTALLY DAILY PRN supp PRN Reason: Constipation Ferrous Sulfate [Feosol] 324 mg PO WB tablet MetroNIDAZOLE [Flagyl] 500 mg PO TID 6 Days #18 tablet Midodrine [Proamatine] 10 mg PO 0700,1100,1500 tablet Pantoprazole Tab [Protonix Tab] 40 mg PO ACBID tablet Acetaminophen [Tylenol] 650 mg PO QID PRN tablet PRN Reason: Discomfort Clarithromycin [Biaxin] 500 mg PO BIDWM 6 Days #12 tablet Continue Citalopram Hydrobromide [Celexa] 20 mg PO HS Polyethylene Glycol 3350 [Miralax] 17 gm PO HS BuPROPion IR [Wellbutrin Ir] 75 mg PO BID Docusate Sodium [Colace] 1 cap PO BID Ceftriaxone [Rocephin] 2 gm IV DAILY 23 Days #0 Changed Metformin Xr [Glucophage Xr] 1,000 mg PO DAILY #0 Discontinued Simvastatin [Zocor] 20 mg PO HS Furosemide [Lasix] 1 tab PO DAILY Midodrine [Proamatine] 10 mg PO 09,,17 Warfarin [Coumadin] 2 mg PO 1700 GlyBURIDE [Micronase] 2.5 mg PO DAILY Potassium Chloride [K-Dur] 1 tab PO DAILY No Action Acetaminophen Supp [Tylenol Supp] 650 mg RECTALLY Q4HR PRN MDD 6 supps/24 hours PRN Reason: Pain Discharge Instructions/Outpatient Orders: Final Provider Discharge Instructions Location: Determined By Patient - Disposition 03 To [facility] Not [facility] ([facility])
--- NOTE | 2017-04-16 13:42 | Extended Care Facility Orders ---
Admission Orders Admit to:: [facility] Allergies/Adverse Reactions: Allergies No Known Allergies Allergy (Verified 04/02/17 13:14) Admitting Diagnosis: GI Bleed, Hypotension Admitting Physician: Ana Leach MD Attending Physician: Ana Leach MD Code Status: Full Code Anticiapted Length of Stay: 30 days or less Rehab Potential: good Rehab Prognosis: good Diet: 04/13/17 Dinner Cardiac Consistent Carbohydrate Diet [DIET] Calorie Level: 2000 Sodium Restriction: 2GRAM Fat Content: LOW May use Facility Protocol or Standing Orders: Yes May have flu vaccine: Yes Evaluations/Treatment: PT, OT [facility] Certification: I certify that SNF services are required to be given on an Inpatient basis because of the patients need for prison care on a continuing basis for the condition(s) for which he/she received inpatient hospital services prior to his/her transfer to the SNF. SNF inpatient care is necessary for the following reasons Indication for [facility]: Diabetic Assessment, Med Admininistration - Additional Information In Event of Arrest: Start CPR,call 911,send patient to the ER Referrals: Edith Castro MD [Physician] - (04/28/17- 1030am at [facility] in [place]) Dami Mccoy MD [Physician] - (2016 at 4:00 pm )
--- NOTE | 2017-04-16 13:43 | Extended Care Facility Orders ---
Admission Orders Admit to:: Long-Term Allergies/Adverse Reactions: Allergies No Known Allergies Allergy (Verified 04/02/17 13:14) Admitting Diagnosis: GI Bleed, Hypotension Admitting Physician: Ana Leach MD Attending Physician: Ana Leach MD Code Status: Full Code Anticiapted Length of Stay: 30 days or less Rehab Potential: good Rehab Prognosis: good Diet: 04/13/17 Dinner Cardiac Consistent Carbohydrate Diet [DIET] Calorie Level: 2000 Sodium Restriction: 2GRAM Fat Content: LOW May use Facility Protocol or Standing Orders: Yes May have flu vaccine: Yes Evaluations/Treatment: PT, OT Long-Term Certification: I certify that SNF services are required to be given on an Inpatient basis because of the patients need for [facility] care on a continuing basis for the condition(s) for which he/she received inpatient hospital services prior to his/her transfer to the SNF. SNF inpatient care is necessary for the following reasons Indication for Long-Term: Diabetic Assessment, Med Admininistration - Additional Information In Event of Arrest: Start CPR,call 911,send patient to the ER Referrals: Edith Castro MD [Physician] - (04/28/17- 1030am at [facility] in [place]) Dami Mccoy MD [Physician] - (2016 at 4:00 pm )
[2017-04-16] MEDS: INSULIN ASPART 100unit/ml INJECTION SQ PRN (14:22)
--- NOTE | 2017-04-16 17:37 | Discharge Summary ---
<Polly Monroy V - Last Filed: 04/16/17 17:30> Discharge Information Date of admission: 04/09/17 11:01 Anticipated date of discharge: 04/16/17 Attending Physician: Ana Leach MD Primary care physician: Dr Edith [place] Consults: Patient was seen in consultation by the following providers during his hospitalization Dr Palomo (urology), Dr Denis(general surgeon) and Dr Adame (payable processor) - Procedures Procedures: None - Laboratory Labs: 04/16/17 09:28 04/14/17 04:16 9/6-CRP 11. 04/10- H- Pylori- 2.75 - Microbiology None - Radiology Radiology: 04/04/17- Chest Xray- Lower lobe airspace disease 04/08/17- Chest Xray- Small pleural effusions 04/09/17-Chest [id number] pleural effusions and improvement in aeration left lower lobe - Pathology None History of Present Illness HPI: Magdaleno Blackman is a pleasant 71-year-old male with a very complex recent medical history. He was admitted to [facility] on March 11, 2017 with shortness of breath and weakness. At that time, he was found to have infectious endocarditis and septic shock secondary to streptococcus bacteremia. An echocardiogram revealed vegetation on the aortic and mitral valves, and he was diagnosed with a non-STEMI. On 03/14/17, he underwent an aortic and mitral valve replacement under the care of Dr. Dami Mccoy. Post-operatively he did have respiratory failure and was placed on the ventilator. This was managed by integration software developer, Dr. Nunes. Over the course of the next 2 weeks, he continued to improve. He continued to have orthostasis and was placed on Midodrine following a syncopal episode on 03/29. His other chronic diseases, including hypertension, type II diabetes, hypercholesterolemia, GERD and atrial fibrillation, were managed and stabilized. Hemoglobin A1c while at [facility] was 6.5. Due to the severity of his illness and the extended time of his hospitalization, he developed significant generalized weakness. Prior to this illness, he resided independently at home. Because of this debility, he was accepted to [facility] rehabilitation unit for ongoing rehabilitation and strengthening on 04/03. Following his admission to IRU on 04/03 , he experienced an episode of hypoglycemia. Since that time, his glyburide has been on hold and his home dose of metformin was decreased from 1000mg BID to 500mg BID, which he has tolerated well without further incidence of hypoglycemia. His blood sugars remained well controlled. He has also had persistent orthostatic hypotension, despite his MANNY and beta-cassi being on hold, resulting in his inability to participate fully in therapy. His Lasix and KCl, initiated at [facility] due to his CHF and concerns of fluid overload, have also been on hold. Following his admission to IRU, close monitoring of labs revealed anemia with progressive down trending of his hemoglobin. Due to his recent aortic and mitral valve replacements with tissue valves, he has been on Coumadin which is recommended for 30 days following tissue valve replacement as well as bridge therapy with Lovenox for DVT prophylaxis. His [id number] score is >3 indicating a high risk for CVA. Dr. Adame was consulted for cardiology expertise. It is also recommended that he receive a total of 8 weeks of antibiotic therapy following his valve replacement. He remains on Rocephin 2g daily to be complete on 05/10/17. Following his admission, he experienced urinary retention and a Guzmán catheter was placed per the recommendation of Dr. Palomo, which remains in place. An alpha-cassi was also recommended, but was not initiated in light of his orthostasis. Today, Magdaleno was initially seen in IRU first thing this morning. He reported that he felt very weak and tired. Review of vital signs revealed persistent hypotension with blood pressure at 71/50. He has remained afebrile and heart rate is stable. He denies any other complaints including no chest pain, shortness of breath, abdominal pain, nausea or vomiting. He does continue to have significant orthostasis with positional changes. He states that his appetite is fair and admits to a large bowel movement last night. He denies any blood in his stools or dark-tarry stools, though the nurse reports that the hide inspector nurse noted a strong odor concerning for melena. Fecal Hemoccult was positive yesterday. Review of labs reveals his hemoglobin has dropped to 6.1, down from 8.1 yesterday. WBC is stable at 6.0 and platelets at 204. BMP revealed acute increase in his BUN at 45, concerning for acute blood loss. Scr stable at 1.1. INR was also noted to be supratherapeutic at 5.03. He was given Vit. K 2mg prior to exam and was preparing to receive PRBC x 1 unit during the exam. He denies a history of gastric ulcers but does admit to a history of GERD. He believes that he has had a colonoscopy in the past but is unsure of when or by whom and states that he does not remember every having any form of GI bleed, history of diverticulosis, diverticulitis. He does admit to a history of hemorrhoids. Echocardiogram was obtained on 04/07 with results pending. CXR today showed decreasing pleural effusion with improvement in aeration of the left lower lobe. On exam, he is resting in bed and arouses easily to soft voice stimuli. He is alert and orientated x 3 and appears tired and pale. Mucous membranes are dry. Cardiac exam reveals regular rate and rhythm with 2/6 murmur noted. Lungs are clear bilaterally without signs of respiratory distress. Abdomen is soft, nontender with active bowel sounds. Guzmán catheter is in place and actively draining yellow urine. No edema noted to lower extremities. Patient is seen in conjunction with Dr. Adame. Due to his severe, symptomatic anemia with acute GI bleed, hypotension and anticoagulation and recent sepsis, Mr. Blackman was admitted to ICU for further evaluation. He will require close cardiac and respiratory monitoring in light of his hemodynamic instability. He was followed by the following specialists while at [facility]- (03/11/17- 04/02/17) Dr. Cayetano Bautista (infectious disease) streptococcus bacteremia- continue on IV Rocephin through 05/10/17. Dr Robbin Marcus (metal burnisher ) regarding acute kidney injury on top of chronic kidney disease Dr Canelo Nunes (Tester Regulator) managed acute respiratory failure and ventilation Objective Vital signs: Height/Weight/BMI: Height 1.8 m Weight 79.8 kg Body Mass Index 24.0 - Constitutional Present: no acute distress, well nourished, well developed - Routine HEENT Exam Eye: Present: EOMI ENT: Present: mucous membranes moist, dentition normal - Routine Respiratory Exam Present: CTA bilaterally. Absent: wheezes - Routine Cardiovascular Exam Present: RRR, S1, S2. Absent: murmur - Routine Abdominal Exam Present: soft, normoactive bowel sounds, non distended. Absent: tenderness - Routine Extremities Exam Present: normal capillary refill - Routine Skin Exam Present: dry, warm - Routine Neurological Exam Present: alert, oriented X3, CN II-XII intact, moving all extremities - Routine Lymphatic Exam Lymphatic: Absent: adenopathy - Routine Psychiatric Exam Present: normal affect Hospital Course This is a general summary of the patient's hospital course. For more details refer to the complete medical record. Hospital course: 04/09/17 15:02 Assessment/Plan: GI Bleed, acute. * Mr. Blackman was transferred from IRU to ICU in light of hemodynamic deterioration for closer respiratory and cardiac monitoring and continued care. * + fecal hemoccult on 04/08. Hemoglobin trending down at 6.1 this AM. Patient given 1 unit PRBC with improvement of hemoglobin to 6.6. Will given additional 1 unit PRBC and recheck H&H. Continue to monitor blood counts closely and monitor closely for signs of bleeding. * Dr. Denis was consulted for evaluation of possible endoscopy once stabilized. Appreciate his time and expertise. Clear liquid diet in light of acute bleed. * Initiate NS 100cc/hr for fluid resuscitation and monitor closely for signs of fluid overload and respiratory symptoms. CXR on 04/09 revealed decreased pleural effusion and improvement in aeration of left lower lung. Encourage incentive spirometry. * Initiate Protonix 40mg IV BID for GI protection and GERD. * Acute elevation in BUN to 45 most likely secondary to blood loss with SCr stable at 1.1. Recheck BMP in AM to monitor electrolytes and renal function. Monitor urinary output closely in light of recent acute kidney injury while hospitalized at [facility]. 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 * Patient seen and evaluated by Dr. Adame while in IRU. Appreciate his time and expertise. Echocardiogram obtained on 04/08 with results pending to ensure hemoglobin decrease was not related to bleeding from recent surgery in chest. * Patient remains on Rocephin 2g IV for antimicrobial coverage following valve replacement. Treatment to be continued a total duration of 8 weeks and to be complete on 05/10/17. Monitor closely on telemetry Orthostatic hypotension, acute. Appears to be related to acute blood loss, although underlying autonomic neuropathy associated with diabetes may be present as well. * Monitor blood pressure closely. Blood pressure initially 77/56 prior to transfer from IRU. Following 1 unit PRBC, blood pressure improved to 92/64. Continue to hold home blood pressure medications. Continue to give midodrine TID. History of hypertension, chronic. * Hold home medications in light of hypotension including beta-cassi, MANNY, lasix. Type II Diabetes, chronic. * Blood sugars well controlled in IRU following decrease of home metformin to 500mg BID. Continue to hold glyburide in light of decreased oral intake and prior episodes of hypoglycemia. Monitor closely for hypoglycemia. Atrial fibrillation with pacemaker, chronic. * Monitor closely on telemetry. Anticoagulation currently on hold in light of acute GI bleed. SCDs for DVT prophylaxis. Chronic anticoagulation. * Coumadin recommended for 30 days following tissue valve replacement. INR this AM was 5.03. Patient was given 2mg Vit. K and 1 unit PRBC. INR decreased to 3.08. Will give an additional 2mg Vit. K and an additional 1 unit PRBC now and repeat H&H and INR following transfusion. Monitor closely for signs of bleeding. GERD, chronic. * Initiate Protonix 40mg IV BID for acute GI bleed and GI protection. Anxiety, chronic. * Continue home Wellbutrin. Urinary retention, acute. * Maintain Guzmán catheter. Dr. Palomo was previously consulted regarding his retention and recommended alpha-cassi which was held in light of hypotension. Consider bladder retraining in near future once hemoglobin and GI bleed are stabilized. 04/16/17- Discharge Magdaleno is seen and examined on day of discharge. He is feeling well and agrees with the discharge plan for [facility] for skilled rehabilitation. He has recovered well from his acute GI bleed, following blood transfusion in which patient has received a total of 4 units of packed blood cells. Warfarin was discontinued at time of transfer to the ICU. Patient had was seen in consultation by Dr. Adame who recommended avoiding anticoagulation 30 days. Overall, patient's orthostasis has also improved as he does continue to be on Midodrine 3 times a day dosing at 0700, 1100 and 1500. This timing has been important has he becomes significantly orthostatic causing syncope. Given recent history of endocarditis and aortic and mitral valve replacement patient will continue on IV Rocephin 2 grams daily through 05/10/17. This was originally the recommendation from Dr. Cayetano Bautista with infectious disease during his stay at [facility]. It is noted the patient has had mild thrombocytopenia which may be secondary to ongoing Rocephin. CBC will need to be monitored twice a week. It is recommended that if thrombocytopenia persists and platelet count falls less than 50 consideration for change of antibiotic therapy would be recommended. Patient could be changed to Vancomycin loading dose of 1.5 gm loading dose and 1.25gm q 12 hours for ongoing treatment. This is discussed with PCP Dr Edith [place] at time of discharge. Recommended laboratory studies include CBC with differential, BMP and CRP every week on Mondays. This is to be faxed to Dr. Cayetano Bautista at [phone]. An additional CBC is to be drawn each . All laboratory studies should be faxed to PCP. Dr. Edith Castro to follow blood counts, thrombocytopenia. Regarding positive findings for H. pylori, patient is to continue on Flagyl and clarithromycin for an additional 6 days for a total of 10 day treatment. At that time Zocor may be resumed. Patient will continue on metformin once a day and it is recommended that his blood sugars be monitored carefully. Follow-up appointments- primary care Dr. Edith Castro-04/28/17 at 1030 a.m., will be seen at the clinic in [place]. Life Manager- Dami Dobbs MD [Physician] - 2016 at 4:00 pm Life Manager- Follow up with Dr Tyler Goodman ([facility]) in 1 week. [facility] staff instructed to call and arrange follow up apt. Time spent with patient: discharge greater than 30 minutes DVT Prophylaxis: SCD's GI Prophylaxis: Protonix Discharge Plan - Med Rec/Dispo Referrals/Follow Up: Tyler Goodman MD [Physician] - 1 Week ([place] [facility] [phone] ) Edith Castro MD [Physician] - (04/28/17- 1030am at [facility] in [place]) Dami Mccoy MD [Physician] - (2016 at 4:00 pm ) Bharat Instructions: Gastrointestinal Bleeding (GEN) Prescriptions: New Ascorbic Acid [Vitamin C] 500 mg PO WB tablet Bisacodyl Supp [Dulcolax] 10 mg RECTALLY DAILY PRN supp PRN Reason: Constipation Ferrous Sulfate [Feosol] 324 mg PO WB tablet MetroNIDAZOLE [Flagyl] 500 mg PO TID 6 Days #18 tablet Midodrine [Proamatine] 10 mg PO 0700,1100,1500 tablet Pantoprazole Tab [Protonix Tab] 40 mg PO ACBID tablet Acetaminophen [Tylenol] 650 mg PO QID PRN tablet PRN Reason: Discomfort Clarithromycin [Biaxin] 500 mg PO BIDWM 6 Days #12 tablet Continue Citalopram Hydrobromide [Celexa] 20 mg PO HS Polyethylene Glycol 3350 [Miralax] 17 gm PO HS BuPROPion IR [Wellbutrin Ir] 75 mg PO BID Docusate Sodium [Colace] 1 cap PO BID Ceftriaxone [Rocephin] 2 gm IV DAILY 23 Days #0 Changed Metformin Xr [Glucophage Xr] 1,000 mg PO DAILY #0 Discontinued Simvastatin [Zocor] 20 mg PO HS Furosemide [Lasix] 1 tab PO DAILY Midodrine [Proamatine] 10 mg PO ,, Warfarin [Coumadin] 2 mg PO 1700 GlyBURIDE [Micronase] 2.5 mg PO DAILY Potassium Chloride [K-Dur] 1 tab PO DAILY No Action Acetaminophen Supp [Tylenol Supp] 650 mg RECTALLY Q4HR PRN MDD 6 supps/24 hours PRN Reason: Pain Discharge Instructions/Outpatient Orders: Final Provider Discharge Instructions Location: Determined By Patient - Disposition 03 To [facility] Not [facility] ([facility]) <Ana Leach Filed: 04/16/17 19:13> Discharge Information Primary care physician: Consults: Objective Vital signs: Temperature 97.1 F 04/16/17 07:47 Pulse Rate 79 04/16/17 08:01 Respiratory Rate 16 04/16/17 07:47 Blood Pressure 128/81 04/16/17 07:55 Pulse Oximetry 98 04/16/17 07:47 Height/Weight/BMI: Height 1.8 m Weight 79.8 kg Body Mass Index 24.0 Hospital Course This is a general summary of the patient's hospital course. For more details refer to the complete medical record. Hospital course: I have independently evaluated and examined this patient. I reviewed the chart, the patient's history, and the PROGRAM SERVICES ASSISTANT/PA's documented findings as above. We discussed and formulated the assessment and plan as above with additions as below: Mr. Blackman had a very complex summer as noted above with SBE, mitral and aortic tissue valve replacements, atrial fibrillation, pacemaker placement, severe debility leading to transfer to IRU where profound orthostatic hypotension limited progress, development of upper GI bleed with transfusion of 4 units of packed red blood cells and identification of positive Helicobacter serology. The patient has made significant progress in the past 4-5 days and is now ambulating with minimal assistance and blood pressure has been relatively stable although occasionally systolics drop into the 80s and 90s but do not require interventions. The patient has also had persistent urinary retention for which a Guzmán catheter remains in place. He was seen by Dr. Palomo while in rehabilitation; orthostatic hypotension precluded use of Flomax, Uroxatral 10 mg daily was considered as an alternative but on the one day patient received it he had profound orthostatic hypotension and we elected to discontinue it. If blood pressures remain stable Uroxatral could be retried to facilitate bladder function and permit discontinuation of Guzmán catheter. Uroxatral is contraindicated with Biaxin and subsequently has not been retried in the past couple of days. On the date of discharge the patient reported that he felt well and was anxious to move closer to home. The patient is alert and cooperative, respirations are nonlabored, air flow is good. Cardiac rhythm remains slightly irregular with good rate control. Stable for discharge at this time. Discussed discharge plans reviewed with Dr. Castro.
== END 2017-04-16 15:30 | DRG 378 ==
LOC: CCU 11:01 → PREOBSVTOIN 11:26 → MED 04-11 14:20
PROVIDERS: ADMIT Hospitalist; ATTEND Internal Medicine